=== PATIENT | male | born 1940 | race Caucasian/White ===

== ENCOUNTER 2020-07-19 18:48 | Inpatient (IN) | payer MEDICARE, SELFPAY ==
[2020-07-19] VITALS (9 sets, daily range): BP systolic 76–155; BP diastolic 51–97; PULSE 64–92; RESP 12–20; TEMP 36–37.2; O2SAT 94–100; BMI 27.0
--- NOTE | ~2020-07-19 | CT_ITS ---
EXAMINATION: CT abdomen pelvis wo con DATE: 07/23/2020 13:28 INDICATION: Abdominal pain TECHNIQUE: Computed tomography (CT) of the abdomen and pelvis was performed with 100 cc Omnipaque 350 intravenous contrast. Automated exposure control and iterative reconstruction technique were employe d. Exam dose: 255.59 mGy-cm total exam DLP. COMPARISON: 04/12/2013 CT abdomen pelvis FINDINGS: The virtually entire stomach is situated within a large hiatal hernia. There is minimal discoid atelectasis or scarring at the lung bases. Normal heart size. There is trace pericardial fluid. There are scattered hepatic cysts. The gallbladder is present. No bile duct or pancreatic duct dilata tion. No pancreatic mass lesion or calcification. Normal splenic size. Normal morphology of the adren al glands. There is bilateral renal excretion of contrast material and no evidence of renal mass lesi on or hydronephrosis. No ureteral calculus is evident. There is prominent enlargement of the prostate gland as well as some prostate calcifications. The uri nary bladder appears unremarkable. There is diverticulosis of left and right colon; no CT evidence of diverticulitis. Status post append ectomy. No bowel obstruction, bowel wall thickening, pneumatosis or intraperitoneal free air. There is atherosclerotic calcification but normal caliber of the abdominal aorta. No intraperitoneal or retroperitoneal or pelvic mass lesion or adenopathy or ascites. There is prominent degenerative change of the thoracic and lumbar spine, including severe degenerativ e disease of the lumbar and lumbosacral area, with associated mild retrolisthesis at L4-5 and L5-S1. There is degenerative change at the apophyseal joints as well. IMPRESSION: Large hiatal hernia containing virtually the entire stomach Hepatic cysts Diverticulosis of the colon; no CT evidence of diverticulitis Status post appendectomy Prostate enlargement and calcification Reviewed, dictated and finalized at Location [facility]. Reviewed, dictated and finalized at location B.
--- NOTE | ~2020-07-19 | NM_ITS ---
EXAMINATION: NM marlon stress w perfusion DATE: 07/20/2020 11:34 INDICATION: Abnormal electrocardiogram. TECHNIQUE: Rest images were obtained following intravenous administration of 9.9 mCi Tc99m tetrofosmi n (Myoview). The patient was infused intravenously with Lexiscan (regadenoson). Then, 29.4 mCi Tc99m tetrofosmin (Myoview) was administered intravenously, and stress images were obtained. Data was recon structed into short axis and horizontal and vertical long axis SPECT images. Gated SPECT images were also obtained. COMPARISON: Myocardial perfusion imaging 02/03/2018 FINDINGS: There is a large, moderate-severity, fixed perfusion defect involving left ventricular apex , apical segments, and mid inferoseptal segment, consistent with infarct. No reversible component to suggest ischemia. There is apical hypokinesis. Left ventricular ejection fraction measures 56%. IMPRESSION: 1. Large, moderate-severity infarct involving left ventricular apex, apical segments, and mid inferos eptal segment, new from 02/03/2018. 2. Apical hypokinesis with left ventricular ejection fraction measuring 56%. Reviewed, dictated and finalized at location A. IMPRESSION: 1. Large, moderate-severity infarct involving left ventricular apex, apical seg ments, and mid inferoseptal segment, new from 02/03/2018. 2. Apical hypokinesis with left ventricular ejection fraction measuring 56%.
--- NOTE | ~2020-07-19 | US_ITS ---
EXAMINATION: US carotid duplex BI EXAM DATE: 07/20/2020 15:23 INDICATION: Syncope. TECHNIQUE: Grayscale, color and pulsed Doppler images of the cervical carotid arteries were obtained . The degree of vessel stenosis is placed in one of the following categories: normal, <50% stenosis, 50-69% stenosis, >=70% stenosis but less than near-occlusion, near-occlusion, or occlusion. Note that percent stenosis relative to normal distal artery lumen diameter is indirectly measured from velocit y measurements as described by Wicho, et al. Radiology 2003; 229:340-346. There is no prior study fo r comparison. FINDINGS: RIGHT SIDE: Right common carotid artery peak systolic velocity (PSV in cm/s): 66 Right bulb/internal carotid artery peak systolic velocity (PSV in cm/s): 137 Right internal carotid artery end diastolic velocity (EDV in cm/s): 28 Right ICA/CCA peak systolic ratio: 2.1 Right external carotid artery peak systolic velocity (PSV in cm/s): 67 Right vertebral artery antegrade flow: yes There is mild carotid bulb plaque. Velocity and Doppler waveforms in the common and internal carotid arteries is normal. LEFT SIDE: Left common carotid artery peak systolic velocity (PSV in cm/s): 80 Left bulb/internal carotid artery peak systolic velocity (PSV in cm/s): 67 Left internal carotid artery end diastolic velocity (EDV in cm/s): 18 Left ICA/CCA peak systolic ratio: 0.8 Left external carotid artery peak systolic velocity (PSV in cm/s): 61 Left vertebral artery antegrade flow: yes There is mild carotid bulb plaque. Velocity and Doppler waveforms in the common and internal carotid arteries is normal. IMPRESSION: 1. Less than 50 percent stenosis in the right internal carotid artery. 2. Less than 50 percent stenosis in the left internal carotid artery. > Reviewed, dictated and finalized at location B.
--- NOTE | ~2020-07-19 | XR_ITS ---
EXAMINATION: XR chest 2V DATE: 07/19/2020 20:07 INDICATION: Transient alteration of awareness TECHNIQUE: AP and lateral views of the chest are obtained. COMPARISON: 03/11/2017 FINDINGS: The lungs are free of acute opacities. There is no pleural effusion or pneumothorax. Cardio megaly is noted. There is a large hiatal hernia. There are bridging osteophytes at multiple levels in the spine, consistent with diffuse idiopathic skeletal hyperostosis (DISH). IMPRESSION: 1. No acute cardiopulmonary abnormality. 2. Stable cardiomegaly. Reviewed, dictated and finalized at location A.
--- NOTE | ~2020-07-19 | CT_ITS ---
EXAMINATION: CT brain wo con INDICATION: Transient alteration of awareness COMPARISON: None TECHNIQUE: Standard unenhanced head CT. The dose-length product (DLP) was 681.00 mGy-cm. The mA was a djusted according to patient size. Iterative reconstruction technique was employed. FINDINGS: There is no acute intraparenchymal hemorrhage. No evidence of mass lesion. No evidence of a cute infarction. There is mild periventricular and subcortical hypodensity probably related to small vessel ischemic disease. There is mild prominence of the sulci and ventricles related to cerebral atr ophy. Intracranial calcified cerebral atherosclerosis is noted. There are no extra-axial collections. There is no mass effect or midline shift. Changes in the globes are likely from ocular lens surgery. There is near complete opacification of the ethmoidal air cells. Mild mucosal thickening is seen th roughout the remaining paranasal sinuses. IMPRESSION: 1. No acute intracranial abnormality. 2. Age related findings. 3. Sinus disease. Reviewed, dictated and finalized at location A.
--- NOTE | 2020-07-19 19:10 | ED.SYNCOPE ---
HPI - Syncope General Chief Complaint: Syncope Stated Complaint: weakness Time Seen by Provider: 07/19/20 19:10 Source: patient and EMS Mode of arrival: EMS Limitations: no limitations History of Present Illness HPI narrative: Patient is a 79-year-old male who presents for evaluation of syncopal event. Patient reports that he had been watching television, stood up, ambulated to the bathroom, began to feel sweaty, weak and dizzy, and then passed out while urinating. Patient denies hitting his head, states he fell over a cat litter box. Patient states he awakened, was not confused. No urinary incontinence. No tongue lacerations. Patient without history of syncope in the past. He denies any prodromal symptoms such as chest pain, palpitations or shortness of breath. He stated that initially he felt weak and dizzy but that has since resolved. No weakness or dizziness currently. No numbness. Per EMS, patient was diaphoretic, cool and clammy at the time of their arrival to the residence. Patient states he initially had felt weak or dizzy, but currently feels normal. He denies any recent illnesses. He denies fever, chills, headache, vision changes, neck pain, chest pain or shortness of breath. No leg swelling or pain. Pt Twister Doffer is Dr. Tong. Related Data Home Medications Medication Instructions Recorded Confirmed tamsulosin 0.4 mg capsule 0.4 mg PO DAILY 12/07/19 07/06/20 carbidopa 10 mg-levodopa 100 mg 1 tablet PO BID 12/09/19 07/06/20 disintegrating tablet apixaban [Eliquis] mg 07/19/20 fludrocortisone mg 07/19/20 propranolol 07/19/20 tamsulosin mg PO 07/19/20 Allergies Allergy/AdvReac Type Severity Reaction Status Date / Time doxylamine AdvReac Severe DIZZINESS, Verified 07/06/20 09:18 SYNCOPAL FEELING DEXTROMETHORPHAN HBR AdvReac Severe DIZZINESS, Uncoded 07/06/20 09:18 SYNCOPAL FEELING PSEUDOEPHEDRINE HCL AdvReac Severe DIZZINESS, Uncoded 07/06/20 09:18 SYNCOPAL FEELING Review of Systems Review of Systems: Narrative: CONSTITUTIONAL: Denies fever, chills, or sweats. EYES: Denies visual changes, redness, or discharge. ENT: Denies rhinorrhea, congestion, sore throat, or otalgia. CARDIOVASCULAR: Denies chest pain, palpitations, or edema. RESPIRATORY: Denies cough or dyspnea. GASTROINTESTINAL: Denies abdominal pain, nausea, vomiting, or diarrhea. GENITOURINARY: Denies dysuria or hematuria. SKIN: Denies rash or itching. MUSCULOSKELETAL: Denies back pain, joint pain, or myalgia. NEUROLOGIC: Denies current headache, numbness, or weakness. [facility] Past Medical History Medical History (Updated 07/19/20 @ 21:05 by Liam Stapleton MD) Asthma Chronotropic incompetence Dizziness on standing LEE (dyspnea on exertion) Idiopathic Parkinson's disease SHERLY (obstructive sleep apnea) PAF (paroxysmal atrial fibrillation) Trifascicular block Surgical History Surgical History History of appendectomy Family History Family History Father Silicosis Mother Heart disease Social History Social History Smoking status: Never smoker Exam Narrative: Exam Narrative: GENERAL: Awake, alert, conversant HEAD: Normocephalic, atraumatic. EYES: PERRLA and EOMI. ENT: Nares clear, no rhinorrhea or epistaxis. Mucous membranes moist. NECK: Supple. CHEST: No respiratory distress, breathing even and non labored HEART: Regular rate, sinus rhythm ABDOMEN:Non distended, non tender EXTREMITIES: Normal range of motion. No edema. SKIN: Pale, warm, dry, no rash. NEURO:No focal deficits. Alert and oriented x3 Course Vital Signs Vital signs: Vital Signs Temperature 37.2 C 07/19/20 18:56 Pulse Rate 79 07/19/20 18:56 Respiratory Rate 12 07/19/20 18:56 Blood Pressure 133/88 07/19/20 18:56 Pulse Oximetry 99 07/19/20 18:56
[2020-07-19 19:56] LABS: Basophils Percent Auto 0.4 % (0.2-1.2); Eosinophils Absolute Auto 0.1 K/mm3 (0-0.3); Eosinophils Percent Auto 1.2 % (0-4.4); Hematocrit 47.3 % (42.0-52.0); Hemoglobin 16.2 g/dL (14.0-18.0); Immature Granulocyte Absolute 0.02 K/mm3 (0.00-0.031); Immature Granulocyte Percent A 0.2 % (0-0.5); Lymphocytes Absolute Auto 1.43 K/mm3 (0.9-3.2); Lymphocytes Percent Auto 15.3 % (18.3-44.2); Mean Corpuscular HGB Conc 34.2 g/dl (32-36); Mean Corpuscular Hemoglobin 31.2 pg (26-34); Mean Corpuscular Volume 91.1 fl (80-100); Mean Platelet Volume 9.5 fl (7.4-10.4); Monocytes Absolute Auto 0.9 K/mm3 (0.1-0.6); Monocytes Percent Auto 9.1 % (2.6-8.5); Neutrophils Absolute Auto 6.9 K/mm3 (1.3-6.7); Neutrophils Percent Auto 73.8 % (45.5-73.1); Platelet Count Result 231 k/mm3 (150-375); Red Blood Count 5.19 M/mm3 (4.6-6.20); Red Cell Distribution Width 12.8 % (11.5-14.5); White Blood Count 9.4 K/mm3 (4.5-10.0)
[2020-07-19 20:06] LABS: INR 1.7; Prothrombin Time 19.6 Seconds (11.1-14.7)
[2020-07-19 20:07] LABS: Anion Gap 4 mmol/L (8-16); Blood Urea Nitrogen 16 mg/dL (9-20); Calcium 9.1 mg/dL (8.4-10.2); Carbon Dioxide 29 mmol/L (22-30); Chloride 104 mmol/L (98-107); Estimated CRCL calculation 74 ml/min; Estimated Glomerular Filt Rate > 60; Glucose 166 mg/dL (75-110); Partial Thromboplastin Time 47.7 SECONDS (22.3-36.8); Potassium 4.3 mmol/L (3.4-5.0); Sodium 137 mmol/L (137-145)
[2020-07-19 20:10] LABS: D Dimer 0.27 ug/mL (<0.48)
[2020-07-19 20:21] LABS: Troponin I 0.069 ng/mL (0.000-0.034)
[2020-07-19] MEDS: SODIUM CHLORIDE 0.9% IV 1,000 ML 999 ML IV CONT (20:22)
[2020-07-19 20:51] LABS: NT Pro B Type Natriuretic Pept 8540 PG/ML (5-100)
--- NOTE | 2020-07-19 20:57 | PM.IMHP ---
H&P: HPI History of Present Illness Date/Time: 07/19/20 20:57 Chief complaint: Passed out and fell Narrative: This is a pleasant 79-year-old male with known history of paroxysmal atrial fibrillation anticoagulated on Eliquis and Parkinson's syndrome who presented to the hospital tonight after passing out while urinating. The patient states that he often feels dizzy while urinating and most of the time has to put his hand on the wall to balance himself while he is urinating. Today while the patient was in the bathroom he began to feel dizzy, weak, and diaphoretic. the patient passed out while urinating and fell over on a box of eloina litter. he does not believe that he suffered any head trauma and states he was only out for a brief second. He denies any shortness of breath or chest pain prior to passing out. He denies any seizure-like activity. The last time he passed out was almost 50 years ago according to the patient. He denies starting or stopping any medications recently. He also denies any fevers, chills, chest pain, cough, wheezing, shortness of breath, dysuria, hematuria, diarrhea, nausea, vomiting, abdominal pain, rectal bleeding, black stools, or focal neurological deficits. The patient has no other complaints tonight. He was evaluated emergency room and routine labs demonstrated a mildly elevated troponin of 0.069. Cardiology has been consulted by ER provider we been asked to admit the patient to the hospital overnight. Review of Systems Review of Systems: All systems reviewed & are unremarkable except as noted in HPI and below PMFSH Past Medical History Medical History (Updated 07/19/20 @ 21:05 by Liam Stapleton MD) Asthma Chronotropic incompetence Dizziness on standing LEE (dyspnea on exertion) Idiopathic Parkinson's disease SHERLY (obstructive sleep apnea) PAF (paroxysmal atrial fibrillation) Trifascicular block Surgical History Surgical History History of appendectomy Family History Family History Father Silicosis Mother Heart disease Social History Social History Smoking status: Never smoker Second hand tobacco smoke exposure: No Alcohol intake: current Drinks per week: 2 Substance use: never Substance use type: does not use Gender identity (if verbalized by the patient): Male Spiritual care concerns: No Meds Home Medications and Allergies Home Medications Medication Instructions Recorded Confirmed Type amiodarone 100 mg tablet 100 mg PO DAILY #30 tablet 07/12/20 07/20/20 Rx apixaban [Eliquis] 5 mg PO BID 07/19/20 07/20/20 History fludrocortisone 0.1 mg PO DAILY 07/19/20 07/20/20 History propranolol 40 mg PO BID 07/19/20 07/20/20 History tamsulosin 0.4 mg PO DAILY 07/19/20 07/20/20 History carbidopa-levodopa 1 tablet PO BID 07/20/20 07/20/20 History Allergies Allergy/AdvReac Type Severity Reaction Status Date / Time doxylamine AdvReac Severe DIZZINESS, Verified 07/06/20 09:18 SYNCOPAL FEELING DEXTROMETHORPHAN HBR AdvReac Severe DIZZINESS, Uncoded 07/06/20 09:18 SYNCOPAL FEELING PSEUDOEPHEDRINE HCL AdvReac Severe DIZZINESS, Uncoded 07/06/20 09:18 SYNCOPAL FEELING Vital Signs Vital Signs - 24 hr 07/19/20 18:56 07/19/20 20:56 Temperature 37.2 C Pulse Rate 79 69 Respiratory Rate 12 20 Blood Pressure 133/88 145/89 H Pulse Oximetry 99 94 Exam Const: General: cooperative, healthy appearing, no acute distress, alert and awake Nutritional Appearance: well nourished Orientation/consciousness: patient oriented x3 HENMT: Head: normal to inspection General nose exam: Normal external nose present Face and sinus: normal facial exam Mouth: Yes Normal oral and palatal mucosa present and Yes oropharynx normal Eyes: Pupils: Equal, round and
--- NOTE | 2020-07-19 23:23 | PC.NURSE ---
This patient, Higinio Agosto, was admitted to IMU Room 213-01. Patient/family oriented to hospital policies and general routines including ID bracelet, bed and alarms, visiting hours, pain management, procedures, bathroom and other care routines, personal items, smoking policy, room service/diet, and visiting hours. Valuables list has been completed. Information on how to activate the Rapid Response Team has been discussed. Patient/Family are encouraged to report perceived risks to care and to ask questions if they do not understand what they are told or what they should do.
[2020-07-19 23:44] LABS: Troponin I 0.067 ng/mL (0.000-0.034)
[2020-07-19 23:48] LABS: Add Urine Microscopic? YES; Appearance Urine Clear (Clear); Bilirubin Urine Negative (Negative); Blood Urine Negative (Negative); Color Urine Yellow (Yellow); Glucose Urine UA 1+ mg/dL (Negative); Ketones Urine Negative (Negative); Leukocyte Esterase Ur Negative LEU/UL (Negative); Nitrate Urine Negative (Negative); Protein Urine 1+ mg/dL (Negative); RBC Urine 0-2 /hpf (0-2); Specific Grav Ur 1.017 (1.001-1.035); Urobilinogen Urine Negative mg/dL (<2.0); WBC Urine 0-3 /hpf
[2020-07-19 23:49] LABS: Mucus Urine Rare /lpf
[2020-07-20] VITALS (17 sets, daily range): BP systolic 102–146; BP diastolic 64–85; PULSE 58–86; RESP 18–21; TEMP 36.1–36.6; O2SAT 97–99
--- NOTE | 2020-07-20 | EST_ITS ---
Patient Info Name: Higinio Agosto Age: 79 years : 1940 Gender: Male Ht: 72 in Wt: 199 lbs BSA: 2.15 m2 Exam Date: 07/20/2020 10:30 AM Exam Location: [facility] Stress Patient Status: Inpatient Admit Date: 07/19/2020 Staff Ordering Physician: Medardo Tong DO Attending Provider: Liam Stapleton MD Exercise Technologist: Saw Horton RDCS, RT Exercise Physician: Medardo Tong DO Exam Type: CA stress marlon w NM Study Info A regadenoson stress test was performed. Summary 1. 1. Negative lexiscan stress test for ischemic ST changes by ECG criteria. However, significant baseline T wave inversions reduces specificity of the test. 2. 2. Stable hemodynamics throughout the test. 3. 3. Nuclear scan to follow and will be reported separately. Please correlate with it. 4. 4. Patient informed of the above results. Protocol: Lexiscan Stress ECG Details Stage: REST Duration (min): 0 min : 43 sec HR (bpm): 67 SBP (mmHg): 139 DBP (mmHg): 88 Stage: REST Duration (min): 7 min : 11 sec HR (bpm): 65 SBP (mmHg): 139 DBP (mmHg): 88 Stage: STAGE 1 Duration (min): 0 min : 59 sec HR (bpm): 79 SBP (mmHg): 121 DBP (mmHg): 83 Stage: RECOVERY Duration (min): 1 min : 0 sec HR (bpm): 96 SBP (mmHg): 121 DBP (mmHg): 83 Stage: RECOVERY Duration (min): 2 min : 0 sec HR (bpm): 91 SBP (mmHg): 121 DBP (mmHg): 83 Stage: RECOVERY Duration (min): 3 min : 0 sec HR (bpm): 88 SBP (mmHg): 108 DBP (mmHg): 78 Stage: RECOVERY Duration (min): 4 min : 0 sec HR (bpm): 84 SBP (mmHg): 108 DBP (mmHg): 78 Stage: RECOVERY Duration (min): 4 min : 39 sec HR (bpm): 83 SBP (mmHg): 108 DBP (mmHg): 78 Rest HR: 65 bpm Peak HR: 96 bpm Rest Sys BP: 139 mmHg Peak Sys BP: 121 mmHg Max Pred HR: 143 bpm % Max Pred HR: 67 % Target HR: 122 bpm Max RPP: 11,616 bpm*mmHg Termination Reason: Completed protocol Cardiac Symptoms: Shortness of breath Total Time: 1 min : 0 sec Rest Walker BP: 88 mmHg Peak Walker BP: 83 mmHg Total Dose: 0.4 mg Resting ECG Sinus rhythm, first degree AV block, RBBB, LAFB, T wave inversions in anterolat/inf leads- consider ischemia, prolonged QT interval. Stress ECG No ST changes. Arrhythmias None. Report Signatures
[2020-07-20 03:16] LABS: Basophils Percent Auto 0.5 % (0.2-1.2); Eosinophils Absolute Auto 0.2 K/mm3 (0-0.3); Eosinophils Percent Auto 2.2 % (0-4.4); Hematocrit 43.6 % (42.0-52.0); Hemoglobin 14.8 g/dL (14.0-18.0); Immature Granulocyte Absolute 0.01 K/mm3 (0.00-0.031); Immature Granulocyte Percent A 0.1 % (0-0.5); Lymphocytes Absolute Auto 1.97 K/mm3 (0.9-3.2); Lymphocytes Percent Auto 23.7 % (18.3-44.2); Mean Corpuscular HGB Conc 33.9 g/dl (32-36); Mean Corpuscular Volume 91.4 fl (80-100); Mean Platelet Volume 9.8 fl (7.4-10.4); Monocytes Percent Auto 11.7 % (2.6-8.5); Neutrophils Absolute Auto 5.1 K/mm3 (1.3-6.7); Neutrophils Percent Auto 61.8 % (45.5-73.1); Platelet Count Result 220 k/mm3 (150-375); Red Blood Count 4.77 M/mm3 (4.6-6.20); Red Cell Distribution Width 12.8 % (11.5-14.5); White Blood Count 8.3 K/mm3 (4.5-10.0)
[2020-07-20 03:30] LABS: Anion Gap 1 mmol/L (8-16); Blood Urea Nitrogen 15 mg/dL (9-20); Calcium 8.6 mg/dL (8.4-10.2); Carbon Dioxide 29 mmol/L (22-30); Chloride 106 mmol/L (98-107); Estimated CRCL calculation 66 ml/min; Estimated Glomerular Filt Rate > 60; Glucose 122 mg/dL (75-110); Magnesium 2.1 mg/dL (1.6-2.3); Potassium 3.7 mmol/L (3.4-5.0); Sodium 136 mmol/L (137-145)
[2020-07-20 03:50] LABS: Troponin I 0.055 ng/mL (0.000-0.034)
--- NOTE | 2020-07-20 08:00 | PM.CNCAR ---
Assessment and Plan Assessment and plan (1) Elevated troponin I level: Code(s): R79.89 - Other specified abnormal findings of blood chemistry Status: Acute Assessment and Plan: Doubt ACS without clinical evidence of it. It is trending down. Obtain echo and lexiscan myoview stress test. (2) Syncope and collapse: Code(s): R55 - Syncope and collapse Status: Acute Assessment and Plan: Probably due to orthostatic syncope with very apparent drop in BP on orthostatics (contribution from Parkinson's disease causing autonomic dysfunction?) or due to micturition syncope. Encourage fluid intake and to wear compression stockings. May need Midodrine prn. (3) LEE (dyspnea on exertion): Code(s): R06.09 - Other forms of dyspnea Status: Acute (4) Trifascicular block: Code(s): I45.3 - Trifascicular block Status: Chronic (5) Chronotropic incompetence: Code(s): I45.89 - Other specified conduction disorders Status: Acute (6) PAF (paroxysmal atrial fibrillation): Code(s): I48.0 - Paroxysmal atrial fibrillation Status: Chronic Assessment and Plan: In Sinus rhythm on Amiodarone. On low dose to prevent bradycardia. On Eliquis. History of Present Illness History of Present Illness Consult date/time: 07/20/20 08:00 Reason for consult: Syncope. Patient is a 79 yr old man who is my regular cardiology patient who presents to ED after passing out. He has a history of chronotropic incompetence, trifascicular block, PAF, and Parkinson's disease. States he got up to use restroom last evening and while doing so felt dizzy and pass out. He did not injure himself falling and was out for a second. No longer having any dizziness now. Denies chest pain or sob or palpitations. EKG shows same sinus rhythm with trifascicular block. Troponins checked showed it was .069 then trended down to .055. NTpro BNP is 8,540. CXR shows stable cardiomegaly. CT brain shows sinus disease. Orthostatic vitals taken shows BP went from supine 155 /97 to sitting 147/85 to standing 76/51 mmHg. Reports LEE has gotten worse to walking down drive way and back and previously it was 3 blocks. Denies syncope. Mild edema of legs. Had dizziness one time after getting up in the morning. Denies chest pain, sob, palpitations. Cardiovascular Procedures Echo/MUGA:: Echo (EF 60-65%, sigmoid septum, grade I diastolic dysfunction E/E' 18, mild LAE, mild , trace AI/TR, Aortic root 4.1 cm, ascending aorta 4.0 cm.) - 10/09/2017 Electrophysiology:: 05/28/20 22 days event monitor: Sinus rhythm, HR range 31-141 bpm; average HR 64 bpm; 1% PAC's and 9% PVC's. 05/28/20 EKG: Sinus bradycardia with first degree AV block at 45 bpm, RBBB, LAFB. EKG (Sinus rhythm at 59 bpm with first degree AV block, RBBB, LAFB, QTc 484 ms.) - 08/05/2019 EKG (Sinus rhythm at 61 bpm, first degree AV block, RBBB, LAFB, QTc 492 ms.) - 02/04/2019 EKG (Sinus rhythm at 61 bpm, first degree AV block, RBBB, LAFB, QTc 488 ms.) - 10/01/2018 Holter (Sinus rhythm, HR range 31-98 bpm; average 67 bpm; 7 PAC's, 9 couplets, 1 triplet; 2,334 PVC's, 3 couplets, 1,676 bigeminy and 285 trigeminy.) - 07/08/2018 EKG (Sinus rhythm with first degree AV block with PVC's, RBBB, LAFB.) - 07/02/2018 EKG (Sinus rhythm with first degree AB block, RBBB, LAFB, QTc 483 ms.) - 04/02/2018 EKG (Sinus rhythm, first degree AV block, RBBB, LAFB, QTc 468 ms.) - 02/26/2018 Holter (48 hour holter: Sinus rhythm HR range 53-160 bpm; average HR 81 bpm; 9,817 PAC's, 927 couplets; 135 runs of SVT and atrial fib; fastest at 222 bpm and longest at least 15 minutes; 13,017 PVC's, 1,562 couplets, 72 triplets, 1,797 bigeminy and 1,445 trigeminy; 3 runs of VT at 136, longest 4 beats.) - 02/12/2018 EKG (Sinus rhythm with first degree AV block, RBBB, LAFB, PAC's.) - 01/15/2018 EKG (Undetermined rhythm, RBBB, LAFB.) - 04/12/2013 Stress Tests:: Exercise Tolerance Test (Check for chronotropic incompetence: He walked for 3
--- NOTE | 2020-07-20 10:21 | ECG_ITS ---
Measurements Intervals Plover Rate: 66 P: 10 AL: 249 QRS: -84 QRSD: 164 T: 248 QT: 484 QTc: 511 Interpretive Statements SINUS RHYTHM WITH FIRST DEGREE AV BLOCK RIGHT BUNDLE BRANCH BLOCK LEFT ANTERIOR FASCICULAR BLOCK T WAVE ABNORMALITY IN ANTEROLAT/INF LEADS- CONSIDER ISCHEMIA BASELINE ARTIFACT- II, III, AVF ABNORMAL ECG Electronically Signed On 07-20-2020 20:11:32 CDT by Medardo Tong D.O.
--- NOTE | 2020-07-20 13:16 | PM.CNCAR ---
Assessment and Plan Additional Plan 79-year-old man with an L elevated troponin level drawn in the absence of any symptoms or clinical evidence of acute coronary syndrome. This triggered a nuclear stress test which demonstrates the possibility of a previous anteroapical infarction. He has never been clinically known to have an [place] in the past. Angiogram in this setting is reasonable but certainly not urgent. Since the patient has been off of apixaban for less than 48 hours it would not be prudent to proceed with non urgent angiography today. I told the patient and his family that if he remains in the hospital I will be happy to do this procedure on Thursday morning. Another reasonable alternative would be to do this as an outpatient. We will follow him with you over the weekend if he remains in the hospital and perform angiography on Thursday if the chooses to go home we will set this up as an outpatient thank you for asking me to see this gentleman Elkin Bryant MD [facility] History of Present Illness History of Present Illness Consult date/time: Date of service: 07/20/20 13:16 Reason For Visit: Passed out and fell Narrative: This is a 79-year-old man who I am seeing at the request of Dr. Tong to consider performing a coronary angiogram. The patient was seen and his chart was reviewed. He is not known to have coronary artery disease as best as I can tell in from his knowledge. The patient was admitted to the hospital after an episode of what appears to be typical micturition syncope. 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 He also has chronic bifascicular block and history of atrial fibrillation although he is currently in sinus rhythm. He is being treated for this with amiodarone and apixaban. The patient came to the emergency room after this syncopal event and for reasons that are not detailed in the chart troponin levels were done a or slightly out of normal range. At this apparently triggered a nuclear stress test to be done this morning. He had a Lexiscan nuclear study performed which is being interpreted as showing a fixed defect in the anteroapical wall compatible with a prior infarction. There is no reversible ischemia. With these findings I am asked to see him to poor perform an angiogram. According to the chart the patient did receive apixaban yesterday. He feels well currently and denies any complaints. Review of Systems Constitutional: Constitutional: Reports no additional constitutional complaints Eyes: Eyes: Reports no additional eye complaints ENT: Reports system reviewed and no additional complaints, except as documented Cardiovascular: Cardiovascular: Reports as per HPI Respiratory: Respiratory: Reports no additional respiratory complaints Gastrointestinal: Gastrointestinal: Reports no additional gastrointestinal complaints Musculoskeletal: Musculoskeletal: Reports no additional musculoskeletal complaints Integumentary/Breasts: Skin/Breast: Reports system reviewed and no additional complaints, except as docu Neurologic: Reports system reviewed and no additional complaints, except as documented Endocrine: Endocrine: Reports no additional endocrine complaints Hematologic/Lymphatic: Hematologic/Lymphatic: Reports no additional hematologic/lymphatic complaints Allergic/Immunologic: Allergic/Immunologic: Reports no additional allergic/immunologic complaints [facility] Past Medical History Medical History (Updated 07/19/20 @ 21:05 by Liam Stapleton MD) Asthma Chronotropic incompetence Dizziness on standing LEE (dyspnea on exertion) Idiopathic Parkinson's disease SHERLY (obstructive sleep apnea) PAF (paroxysmal atrial fibrillation) Trifascicular block Surgical History Surgical History History of appendectomy Family History Family History (Reviewed 0
[2020-07-20] MEDS: PERFLUTREN LIPID MICROSPHERES 1.5 ML VIAL DILUTED TO 10 ML TOTAL VOLUME IV PUSH (14:20)
[2020-07-20] MEDS: AMIODARONE HCL 100 MG TABLET PO (14:53)
[2020-07-20] MEDS: ASPIRIN 81 MG CHEWABLE TABLET PO (14:53)
--- NOTE | 2020-07-20 16:26 | PM.IMPN ---
Progress Note: A&P Assessment and Plan (1) Syncope and collapse: Code(s): R55 - Syncope and collapse Status: Acute Assessment and Plan: likely vasovagal in origin. Rule out cardiogenic syncope. Telemetry. Fall precautions. Check TSH reflex T4. Check echocardiogram. Check carotid Doppler ultrasound. check orthostatic vitals which have not been done yet. 07/20/20 16:26 patient is 79-year-old male with history of Parkinson disease taking Sinemet and Florinef 0.1mg daily was brought to the emergency department after he fell while urinating, patient states that he was watching TV, got up to go to the bathroom and while urinating he fell, he denies any associated symptoms chest pain palpitation or dizziness, after the fall he denies any head injury but did feel weak and tired, patient was brought to the emergency depart further evaluation he was orthostatic in emergency, most likely patient symptoms stems from orthostatic hypotension due to autonomic dysfunction secondary to Parkinson disease or he had a vasovagal during urinating, EKG did not show any significant with acute injury, his tropes were elevated mild and flat, further evaluate patient had Lexiscan stress which showed the patient may have myocardial infarction however patient was seen by sifter operator does not suspect acute coronary disease recommending to monitor, since patient is on Eliquis which is on hold, suspect most likely patient has 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 and he is already on Florinef, will monitor his orthostatic, may start the patient on low dose of midodrine to further evaluate his orthostatic hypotension, will discuss with his sifter operator before starting midodrine, will have PT OT evaluate the patient, patient will benefit from acute rehab before returning home, patient seen by Cardiology and further recommendation to follow. (2) Elevated troponin I level: Code(s): R79.89 - Other specified abnormal findings of blood chemistry Status: Acute Assessment and Plan: rule out ACS. likely secondary to acute trauma. Trend troponin. telemetry. cardiology has been consulted by ER provider. 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 (5) PAF (paroxysmal atrial fibrillation): Code(s): I48.0 - Paroxysmal atrial fibrillation Status: Chronic Assessment and Plan: Continue amiodarone and Eliquis. Subjective Date/time seen: 07/20/20 16:26 patient is 79-year-old male with history of Parkinson disease taking Sinemet and Florinef 0.1mg daily was brought to the emergency department after he fell while urinating, patient states that he was watching TV, got up to go to the bathroom and while urinating he fell, he denies any associated symptoms chest pain palpitation or dizziness, after the fall he denies any head injury but did feel weak and tired, patient was brought to the emergency depart further evaluation he was orthostatic in emergency, most likely patient symptoms stems from orthostatic hypotension due to autonomic dysfunction secondary to Parkinson disease or he had a vasovagal during urinating, EKG did not show any significant with acute injury, his tropes were elevated mild and flat, further evaluate patient had Lexiscan stress which showed the patient may have myocardial infarction however patient was seen by sifter operator does not suspect acute coronary disease recommending to monitor, since patient is on Eliquis which is on hold, suspect most likely patient has 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 and he is already on Florinef, will monitor his orthostatic, may start the patient on low dose of midodrine to further evaluate his ort
[2020-07-20] MEDS: CARBIDOPA/LEVODOPA 25/250 MG TABLET 1 TABLET PO (20:42)
[2020-07-20] MEDS: PROPRANOLOL HCL 40 MG TABLET PO (20:43)
--- NOTE | 2020-07-20 20:56 | ECHO_ITS ---
Patient Info Name: Higinio Agosto Age: 79 years : 1940 Gender: Male Ht: 72 in Wt: 205 lbs BSA: 2.19 m2 HR: 65 bpm BP: 127 / 85 mmHg Heart Rhythm: Sinus Rhythm Technical Quality: Good Exam Date: 07/20/2020 1:36 PM Exam Location: [facility] Patient Status: Inpatient Admit Date: 07/19/2020 Staff Ordering Physician: Liam Stapleton MD V[place]ette: Leonides Herbert RDCS Attending Provider: Liam Stapleton MD Referring Physician: Pieter CORBETT; Exam Type: CA echo dop color flow w con Study Info Indications R55 - Syncope and collapse Complete two-dimensional, color flow and Doppler transthoracic echocardiogram is performed with contrast to opacify the left ventricle and to improve the deliniation of the left ventricle endocardial borders. Contrast/Agitated Saline Contrast/Ag. Saline: Definity Amount: 3.00 ml Administered By: Amador Eugene RN Existing IV Access: Yes History/Risk Factors Chest pain; syncope, orthostatic HoTN, LEE, pAfib, CHF w/ BNP 8450, cardiomegaly. Summary 1. Left ventricular chamber dimension is normal. 2. Definity contrast administered improved wall motion interpretation. 3. Left ventricular systolic function is normal, estimated at 55-60%. 4. There is moderately increased left ventricular wall thickness. 5. The left ventricular diastolic function is grade I diastolic dysfunction. 6. E/e' 13 is mildly elevated. 7. There is mild aortic valve sclerosis. 8. There is mild to moderate aortic valve regurgitation. 9. The mitral valve has mildly calcified annulus. Left Ventricle E/e' 13 is mildly elevated. Definity contrast administered improved wall motion interpretation. Left ventricular chamber dimension is normal. Left ventricular systolic function is normal, estimated at 55-60%. There is moderately increased left ventricular wall thickness. The left ventricular diastolic function is grade I diastolic dysfunction. Right Ventricle Right ventricular chamber dimension is normal. Right ventricular systolic function is normal. Left Atria Left atrial chamber dimension is normal. Right Atria Right atrial chamber dimension is normal. Aortic Valve The aortic valve is trileaflet. There is mild aortic valve sclerosis. There is no aortic valve stenosis. There is mild to moderate aortic valve regurgitation. Pulmonic Valve There is no pulmonic regurgitation. Mitral Valve The mitral valve has mildly calcified annulus. There is no mitral valve stenosis. There is no mitral valve regurgitation. Tricuspid Valve There is no tricuspid valve regurgitation. Pericardium/Pleural There is no pericardial effusion. Inferior Vena Cava Normal inferior vena cava with >50% collapse upon inspiration consistent with normal right atrial pressure, 5 mmHg. Aorta The aortic root size at the sinus of Valsalva is normal. Left Ventricular Outflow Tract Name Value Normal LVOT 2D LVOT Diameter 2.25 cm LVOT Doppler LVOT Peak Gradient 4 mmHg LVOT Mean Gradient 2 mmH
[2020-07-21] VITALS (20 sets, daily range): BP systolic 71–196; BP diastolic 49–124; PULSE 57–89; RESP 18–20; TEMP 36–36.4; O2SAT 96–99
[2020-07-21 04:18] LABS: Mean Corpuscular Hemoglobin 31.2 pg (26-34); Mean Corpuscular Volume 91.6 fl (80-100); Mean Platelet Volume 9.5 fl (7.4-10.4); Platelet Count Result 245 k/mm3 (150-375); Red Blood Count 5.13 M/mm3 (4.6-6.20); Red Cell Distribution Width 12.8 % (11.5-14.5); White Blood Count 10.3 K/mm3 (4.5-10.0)
[2020-07-21 04:38] LABS: Anion Gap 8 mmol/L (8-16); Blood Urea Nitrogen 13 mg/dL (9-20); Carbon Dioxide 31 mmol/L (22-30); Chloride 101 mmol/L (98-107); Estimated CRCL calculation 66 ml/min; Estimated Glomerular Filt Rate > 60; Glucose 121 mg/dL (75-110); Potassium 3.8 mmol/L (3.4-5.0); Sodium 140 mmol/L (137-145)
--- NOTE | 2020-07-21 07:26 | ECG_ITS ---
Measurements Intervals [place] Rate: 60 P: 72 HI: 271 QRS: -79 QRSD: 165 T: 257 QT: 515 QTc: 515 Interpretive Statements SINUS RHYTHM WITH FIRST DEGREE AV BLOCK RIGHT BUNDLE BRANCH BLOCK LEFT ANTERIOR FASCICULAR BLOCK T WAVE ABNORMALITY IN ANTEROLAT/INF LEADS- CONSIDER ISCHEMIA PROLONGED QT INTERVAL ABNORMAL ECG Electronically Signed On 07-21-2020 8:34:54 CDT by Medardo Tong D.O.
--- NOTE | 2020-07-21 08:17 | PM.PNCARD ---
Progress Note: A&P Assessment and Plan (1) Elevated troponin I level: Code(s): R79.89 - Other specified abnormal findings of blood chemistry Status: Acute Assessment and Plan: Doubt ACS without clinical evidence of it. It is trending down. Echo shows normal EF, mild-mod MR. Cielo [place] is abnormal with large apical defect suggestive of prior UT or scar. Appreciate Dr. Bryant with [facility] seeing patient on consult for cardiac cath and plan for Thursday since he was on Eliquis. (2) Syncope and collapse: Code(s): R55 - Syncope and collapse Status: Acute Assessment and Plan: Probably due to orthostatic syncope with very apparent drop in BP on orthostatics (contribution from Parkinson's disease causing autonomic dysfunction?) or due to micturition syncope. On Florinef. Encourage fluid intake and to wear compression stockings. May need Midodrine prn. 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 On low dose Amiodarone due to bradycardia. 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 Start DVT prophylaxis with Lovenox 40 mg SQ daily. (7) SHERLY (obstructive sleep apnea): Code(s): G47.33 - Obstructive sleep apnea (adult) (pediatric) Status: Acute (8) Dizziness on standing: Code(s): R42 - Dizziness and giddiness Status: Acute Subjective Date/time seen: 07/21/20 08:17 He did not sleep well, just could not get comfortable last night. No chest pain or sob. Reports intermittent dizziness sitting on side of bed on or in chair, and mostly with standing. Discussed cardiac cath with patient and he wants to stay here until Thursday for procedure. Exam Const: General: no acute distress; No in distress Neck: Neck: no JVD Carotids: no bruits Resp: Auscultation: clear to auscultation bilaterally, no crackles, no rales, no rhonchi and no wheezes Cardio: Rate: regular rate Rhythm: regular rhythm Heart sounds: no murmurs GI: GI Palp: Yes Soft to palpation and No Tenderness to palpation present (GI) Neuro: Speech: normal speech Extrem: Right lower extremity: no edema Left lower extremity: no edema Objective Data Vital Signs Vital Signs: Vital Signs - 24 hr 07/20/20 08:31 07/20/20 12:20 07/20/20 14:00 Temperature 97.0 F L 97.1 F L Pulse Rate 64 68 66 Respiratory Rate 18 20 Blood Pressure 127/85 110/72 Pulse Oximetry 97 97 07/20/20 14:53 07/20/20 16:00 07/20/20 16:32 Temperature 97.6 F Pulse Rate 67 76 72 Respiratory Rate 21 H Blood Pressure 124/74 Pulse Oximetry 97 07/20/20 18:00 07/20/20 19:08 07/20/20 19:58 Temperature 97.9 F 97.1 F L Pulse Rate 67 69 61 Respiratory Rate 20 20 Blood Pressure 125/66 118/64 Pulse Oximetry 98 99 07/20/20 19:59 07/20/20 20:00 07/20/20 20:43 Temperature Pulse Rate 86 69 Respiratory Rate Blood Pressure 102/72 Pulse Oximetry 07/20/20 22:00 07/21/20 00:00 07/21/20 02:00 Temperature 97.2 F L Pulse Rate 58 L 71 75 Respiratory Rate 20 Blood Pressure 158/76 H Pulse Oximetry 99 07/21/20 04:00 07/21/20 06:00 Temperature 97.5 F L Pulse Rate 63 77 Respiratory Rate 18 Blood Pressure 167/79 H Pulse Oximetry 97 Intake/Output Intake/Output: Intake & Output 07/18/20 07/19/20 07/20/20 07/21/20 23:59 23:59 23:59 23:59 Intake Total 1000 1090 500 Output Total 1000 1250 Balance 1000 90 -750 Meds
[2020-07-21] MEDS: FLUDROCORTISONE ACETATE 0.1 MG TABLET PO (08:43)
[2020-07-21] MEDS: CARBIDOPA/LEVODOPA 25/250 MG TABLET 1 TABLET PO ×2 (08:43→20:36)
[2020-07-21] MEDS: TAMSULOSIN HCL 0.4 MG CAPSULE PO (08:43)
[2020-07-21] MEDS: PROPRANOLOL HCL 40 MG TABLET PO ×2 (08:43→20:36)
[2020-07-21] MEDS: ASPIRIN 81 MG CHEWABLE TABLET PO (08:44)
[2020-07-21 10:05] LABS: Cholesterol 202 mg/dL (0-200); HDL Direct 58 mg/dL; Triglycerides 98 mg/dL (<150)
[2020-07-21 10:15] LABS: LDL Cholesterol Direct 102 mg/dL
[2020-07-21] MEDS: AMIODARONE HCL 50 MG TABLET PO (10:30)
[2020-07-21] MEDS: ENOXAPARIN 40 MG/0.4 ML SYRINGE SUB-Q (10:31)
--- NOTE | 2020-07-21 12:34 | PM.IMPN ---
Progress Note: A&P Assessment and Plan (1) Syncope and collapse: Code(s): R55 - Syncope and collapse Status: Acute Assessment and Plan: likely vasovagal in origin. Rule out cardiogenic syncope. Telemetry. Fall precautions. Check TSH reflex T4. Check echocardiogram. Check carotid Doppler ultrasound. check orthostatic vitals which have not been done yet. 07/21/20 12:34 likely vasovagal in origin. Rule out cardiogenic syncope. Telemetry. Fall precautions. Check TSH reflex T4. Check echocardiogram. Check carotid Doppler ultrasound. check orthostatic vitals which have not been done yet. patient is 79-year-old male with history of Parkinson disease taking Sinemet and Florinef 0.1mg daily was brought to the emergency department after he fell while urinating, patient states that he was watching TV, got up to go to the bathroom and while urinating he fell, he denies any associated symptoms chest pain palpitation or dizziness, after the fall he denies any head injury but did feel weak and tired, patient was brought to the emergency depart further evaluation he was orthostatic in emergency, most likely patient symptoms stems from orthostatic hypotension due to autonomic dysfunction secondary to Parkinson disease or he had a vasovagal during urinating, EKG did not show any significant with acute injury, his tropes were elevated mild and flat, further evaluate patient had Lexiscan stress which showed the patient may have myocardial infarction however patient was seen by in flight refueling system repairer does not suspect acute coronary disease recommending to monitor, since patient is on Eliquis which is on hold, suspect most likely patient has 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 and he is already on Florinef, will monitor his orthostatic, may start the patient on low dose of midodrine to further evaluate his orthostatic hypotension, 07/21 today patient states still feel dizzy when he tries to get up or walk. denies any associated symptoms of chest pain or palpitation, patient is taken off Eliquis and scheduled to have cardiac catheterization on Thursday to further reassess his Lexiscan test, patient seen by his Cardiology will continue present management and monitor the patient. (2) Elevated troponin I level: Code(s): R79.89 - Other specified abnormal findings of blood chemistry Status: Acute Assessment and Plan: rule out ACS. likely secondary to acute trauma. Trend troponin. telemetry. cardiology has been consulted by ER provider. 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 (5) PAF (paroxysmal atrial fibrillation): Code(s): I48.0 - Paroxysmal atrial fibrillation Status: Chronic Assessment and Plan: Continue amiodarone and Eliquis. Subjective Date/time seen: 07/21/20 12:34 likely vasovagal in origin. Rule out cardiogenic syncope. Telemetry. Fall precautions. Check TSH reflex T4. Check echocardiogram. Check carotid Doppler ultrasound. check orthostatic vitals which have not been done yet. patient is 79-year-old male with history of Parkinson disease taking Sinemet and Florinef 0.1mg daily was brought to the emergency department after he fell while urinating, patient states that he was watching TV, got up to go to the bathroom and while urinating he fell, he denies any associated symptoms chest pain palpitation or dizziness, after the fall he denies any head injury but did feel weak and tired, patient was brought to the emergency depart further evaluation he was orthostatic in emergency, most likely patient symptoms stems from orthostatic hypotension due to autonomic dysfunction secondary to Parkinson disease or he had a vasovaga
[2020-07-22] VITALS (21 sets, daily range): BP systolic 63–180; BP diastolic 48–111; PULSE 51–84; RESP 16–24; TEMP 35.8–37.1; O2SAT 93–99
[2020-07-22 05:14] LABS: Hematocrit 46.3 % (42.0-52.0); Hemoglobin 15.9 g/dL (14.0-18.0); Mean Corpuscular HGB Conc 34.3 g/dl (32-36); Mean Corpuscular Hemoglobin 31.2 pg (26-34); Mean Corpuscular Volume 90.8 fl (80-100); Mean Platelet Volume 9.8 fl (7.4-10.4); Platelet Count Result 239 k/mm3 (150-375); Red Cell Distribution Width 12.9 % (11.5-14.5); White Blood Count 10.1 K/mm3 (4.5-10.0)
[2020-07-22 05:36] LABS: Anion Gap 0 mmol/L (8-16); Blood Urea Nitrogen 19 mg/dL (9-20); Calcium 9.1 mg/dL (8.4-10.2); Carbon Dioxide 34 mmol/L (22-30); Chloride 100 mmol/L (98-107); Estimated CRCL calculation 60 ml/min; Estimated Glomerular Filt Rate > 60; Glucose 122 mg/dL (75-110); Potassium 3.7 mmol/L (3.4-5.0); Sodium 134 mmol/L (137-145)
--- NOTE | 2020-07-22 07:40 | ECG_ITS ---
Measurements Intervals [place] Rate: 56 P: 24 AK: 275 QRS: -82 QRSD: 166 T: 261 QT: 555 QTc: 537 Interpretive Statements SINUS BRADYCARDIA WITH FIRST DEGREE AV BLOCK RIGHT BUNDLE BRANCH BLOCK LEFT ANTERIOR FASCICULAR BLOCK T WAVE ABNORMALITY IN ANTEROLAT/INF LEADS- CONSIDER ISCHEMIA PROLONGED QT INTERVAL ABNORMAL ECG Electronically Signed On 07-22-2020 8:53:45 CDT by Medardo Tong D.O.
[2020-07-22] MEDS: PROPRANOLOL HCL 40 MG TABLET PO ×2 (08:53→21:10)
[2020-07-22] MEDS: TAMSULOSIN HCL 0.4 MG CAPSULE PO (08:53)
[2020-07-22] MEDS: ASPIRIN 81 MG ENTERIC TABLET PO (08:54)
[2020-07-22] MEDS: FLUDROCORTISONE ACETATE 0.1 MG TABLET PO (08:54)
[2020-07-22] MEDS: ENOXAPARIN 40 MG/0.4 ML SYRINGE SUB-Q (08:54)
[2020-07-22] MEDS: CARBIDOPA/LEVODOPA 25/250 MG TABLET 1 TABLET PO ×2 (08:54→21:10)
[2020-07-22] MEDS: PRAVASTATIN SODIUM 10 MG TABLET PO (08:54)
[2020-07-22] MEDS: AMIODARONE HCL 50 MG TABLET PO (08:55)
--- NOTE | 2020-07-22 08:55 | PM.PNCARD ---
Progress Note: A&P Assessment and Plan (1) Elevated troponin I level: Code(s): R79.89 - Other specified abnormal findings of blood chemistry Status: Acute Assessment and Plan: Doubt ACS without clinical evidence of it. It is trending down. Echo shows normal EF, mild-mod MR. Cielo colon is abnormal with large apical defect suggestive of prior PA or scar. Appreciate Dr. Bryant with [facility] seeing patient on consult for cardiac cath and plan for Thursday since he was on Eliquis. Keep NPO for cath tomorrow. (2) Syncope and collapse: Code(s): R55 - Syncope and collapse Status: Acute Assessment and Plan: Probably due to orthostatic syncope with very apparent drop in BP on orthostatics (contribution from Parkinson's disease causing autonomic dysfunction?) or due to micturition syncope. On Florinef. Encourage fluid intake and to wear compression stockings. May need Midodrine prn. 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 On low dose Amiodarone due to bradycardia and prolonged QT interval. Start DVT prophylaxis with Lovenox 40 mg SQ daily. (7) SHERLY (obstructive sleep apnea): Code(s): G47.33 - Obstructive sleep apnea (adult) (pediatric) Status: Acute (8) Dizziness on standing: Code(s): R42 - Dizziness and giddiness Status: Acute Subjective Date/time seen: 07/22/20 08:55 Denies chest pain or sob. Slept better last night. Reports intermittent dizziness in sitting or standing postions. Exam Const: General: no acute distress; No in distress Neck: Neck: no JVD Carotids: no bruits Resp: Auscultation: clear to auscultation bilaterally, no crackles, no rales, no rhonchi and no wheezes Cardio: Rate: regular rate Rhythm: regular rhythm Heart sounds: no murmurs GI: GI Palp: Yes Soft to palpation and No Tenderness to palpation present (GI) Neuro: Speech: normal speech Extrem: Right lower extremity: no edema Left lower extremity: no edema Objective Data Vital Signs Vital Signs: Vital Signs - 24 hr 07/21/20 10:00 07/21/20 10:30 07/21/20 10:55 Temperature Pulse Rate 78 87 Respiratory Rate Blood Pressure 88/68 L Pulse Oximetry 07/21/20 12:00 07/21/20 14:11 07/21/20 16:00 Temperature 97.6 F 96.8 F L Pulse Rate 89 69 57 L Respiratory Rate 20 20 Blood Pressure 196/114 H 106/64 Pulse Oximetry 99 98 07/21/20 17:03 07/21/20 18:05 07/21/20 20:00 Temperature 96.8 F L Pulse Rate 73 61 Respiratory Rate 18 Blood Pressure 126/81 98/60 L Pulse Oximetry 98 07/21/20 20:21 07/21/20 20:23 07/21/20 20:36 Temperature Pulse Rate 61 Respiratory Rate Blood Pressure 71/50 L 84/49 L Pulse Oximetry 07/21/20 22:00 07/21/20 23:45 07/22/20 00:00 Temperature 97 F L Pulse Rate 58 L 84 72 Respiratory Rate 18 Blood Pressure 155/78 H Pulse Oximetry 97 07/22/20 02:00 07/22/20 04:00 07/22/20 05:55 Temperature Pulse Rate 62 63 65 Respiratory Rate 18 Blood Pressure 105/60 Pulse Oximetry 97 07/22/20 08:00 Temperature 98.7 F Pulse Rate 84 Respiratory Rate 16 Blood Pressure 150/84 H Pulse Oximetry 95 Intake/Output Intake/Output: Intake & Output 07/19/20 07/20/20 07/21/20 07/22/20 23:59 23:59 23:59 23:59 Intake Total 1000 1090 2260 Output Total 1000 2800 100 Balance 1000 90 -540 -100 Meds/Results Medications: Active Medications Generic Name Dose Route Start Last Admin Trade Name Freq PRN Reason Stop Dos
[2020-07-22] MEDS: POTASSIUM CHLORIDE 20 MEQ TABLET 40 MEQ PO (10:16)
--- NOTE | 2020-07-22 13:23 | PM.IMPN ---
Progress Note: A&P Assessment and Plan (1) Syncope and collapse: Code(s): R55 - Syncope and collapse Status: Acute Assessment and Plan: likely vasovagal in origin. Rule out cardiogenic syncope. Telemetry. Fall precautions. Check TSH reflex T4. Check echocardiogram. Check carotid Doppler ultrasound. check orthostatic vitals which have not been done yet. 07/21/20 12:34 likely vasovagal in origin. Rule out cardiogenic syncope. Telemetry. Fall precautions. Check TSH reflex T4. Check echocardiogram. Check carotid Doppler ultrasound. check orthostatic vitals which have not been done yet. 07/22/20 13:23 patient is 79-year-old male with history of Parkinson disease taking Sinemet and Florinef 0.1mg daily was brought to the emergency department after he fell while urinating, patient states that he was watching TV, got up to go to the bathroom and while urinating he fell, he denies any associated symptoms chest pain palpitation or dizziness, after the fall he denies any head injury but did feel weak and tired, patient was brought to the emergency depart further evaluation he was orthostatic in emergency, most likely patient symptoms stems from orthostatic hypotension due to autonomic dysfunction secondary to Parkinson disease or he had a vasovagal during urinating, EKG did not show any significant with acute injury, his tropes were elevated mild and flat, further evaluate patient had Lexiscan stress which showed the patient may have myocardial infarction however patient was seen by warper creeler does not suspect acute coronary disease recommending to monitor, since patient is on Eliquis which is on hold, suspect most likely patient has 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 and he is already on Florinef, will monitor his orthostatic, may start the patient on low dose of midodrine to further evaluate his orthostatic hypotension, 07/22 today patient states still feel dizzy when he tries to get up or walk. denies any associated symptoms of chest pain or palpitation, patient is taken off Eliquis and scheduled to have cardiac catheterization on Monday 07/23, to further reassess his Lexiscan test, patient seen by his Cardiology will continue present management and monitor the patient. (2) Elevated troponin I level: Code(s): R79.89 - Other specified abnormal findings of blood chemistry Status: Acute Assessment and Plan: rule out ACS. likely secondary to acute trauma. Trend troponin. telemetry. cardiology has been consulted by ER provider. 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 (5) PAF (paroxysmal atrial fibrillation): Code(s): I48.0 - Paroxysmal atrial fibrillation Status: Chronic Assessment and Plan: Continue amiodarone and Eliquis. Subjective Date/time seen: 07/22/20 13:23 patient is 79-year-old male with history of Parkinson disease taking Sinemet and Florinef 0.1mg daily was brought to the emergency department after he fell while urinating, patient states that he was watching TV, got up to go to the bathroom and while urinating he fell, he denies any associated symptoms chest pain palpitation or dizziness, after the fall he denies any head injury but did feel weak and tired, patient was brought to the emergency depart further evaluation he was orthostatic in emergency, most likely patient symptoms stems from orthostatic hypotension due to autonomic dysfunction secondary to Parkinson disease or he had a vasovagal during urinating, EKG did not show any significant with acute injury, his tropes were elevated mild and flat, further evaluate patient had Lexiscan stress which showed the patient may have myocardial in
[2020-07-23] VITALS (25 sets, daily range): BP systolic 62–161; BP diastolic 43–92; PULSE 51–80; RESP 12–18; TEMP 35.7–36.5; O2SAT 89–100
[2020-07-23 05:14] LABS: Hematocrit 45.7 % (42.0-52.0); Hemoglobin 15.8 g/dL (14.0-18.0); Mean Corpuscular HGB Conc 34.6 g/dl (32-36); Mean Corpuscular Hemoglobin 31.4 pg (26-34); Mean Corpuscular Volume 90.9 fl (80-100); Mean Platelet Volume 9.9 fl (7.4-10.4); Platelet Count Result 234 k/mm3 (150-375); Red Blood Count 5.03 M/mm3 (4.6-6.20); Red Cell Distribution Width 12.9 % (11.5-14.5); White Blood Count 8.4 K/mm3 (4.5-10.0)
[2020-07-23 05:29] LABS: Anion Gap 6 mmol/L (8-16); Blood Urea Nitrogen 17 mg/dL (9-20); Carbon Dioxide 31 mmol/L (22-30); Chloride 100 mmol/L (98-107); Estimated CRCL calculation 66 ml/min; Estimated Glomerular Filt Rate > 60; Glucose 127 mg/dL (75-110); Sodium 137 mmol/L (137-145)
--- NOTE | 2020-07-23 08:05 | PM.PNCARD ---
Progress Note: A&P Assessment and Plan (1) Elevated troponin I level: Code(s): R79.89 - Other specified abnormal findings of blood chemistry Status: Acute Assessment and Plan: Doubt ACS without clinical evidence of it. It is trending down. Echo shows normal EF, mild-mod MR. Cielo colon is abnormal with large apical defect suggestive of prior IA or scar. Appreciate Dr. Bryant with [facility] seeing patient on consult for cardiac cath and plan for Thursday since he was on Eliquis. Keep NPO for cath today. (2) Syncope and collapse: Code(s): R55 - Syncope and collapse Status: Acute Assessment and Plan: Probably due to orthostatic syncope with very apparent drop in BP on orthostatics (contribution from Parkinson's disease causing autonomic dysfunction?) or due to micturition syncope. On Florinef. Encourage fluid intake and to wear compression stockings. May need Midodrine prn. 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 On low dose Amiodarone due to bradycardia and prolonged QT interval. Start DVT prophylaxis with Lovenox 40 mg SQ daily. Resume Eliquis the following day after cardiac cath. (7) SHERLY (obstructive sleep apnea): Code(s): G47.33 - Obstructive sleep apnea (adult) (pediatric) Status: Acute (8) Dizziness on standing: Code(s): R42 - Dizziness and giddiness Status: Acute Subjective Date/time seen: 07/23/20 08:05 Denies chest pain or sob. Intermittent dizziness. Reports some flank pain and he thinks it's his kidney stones. Exam Const: General: no acute distress; No in distress Neck: Neck: no JVD Carotids: no bruits Resp: Auscultation: clear to auscultation bilaterally, no crackles, no rales, no rhonchi and no wheezes Cardio: Rate: regular rate Rhythm: regular rhythm Heart sounds: no murmurs GI: GI Palp: Yes Soft to palpation and No Tenderness to palpation present (GI) Neuro: Speech: normal speech Extrem: Right lower extremity: no edema Left lower extremity: no edema Objective Data Vital Signs Vital Signs: Vital Signs - 24 hr 07/22/20 08:53 07/22/20 08:55 07/22/20 10:03 Temperature Pulse Rate 59 L 59 L 77 Respiratory Rate Blood Pressure Pulse Oximetry 07/22/20 11:51 07/22/20 12:00 07/22/20 13:26 Temperature 97 F L Pulse Rate 66 71 Respiratory Rate 24 H Blood Pressure 180/100 H 108/76 Pulse Oximetry 97 07/22/20 14:00 07/22/20 16:00 07/22/20 18:00 Temperature 98 F Pulse Rate 65 51 L 57 L Respiratory Rate 18 Blood Pressure 152/86 H 144/111 H Pulse Oximetry 99 07/22/20 20:00 07/22/20 20:16 07/22/20 20:17 Temperature 97.2 F L 96.6 F L Pulse Rate 58 L 58 L 53 L Respiratory Rate 18 22 H Blood Pressure 116/70 80/51 L Pulse Oximetry 93 94 07/22/20 20:18 07/22/20 20:19 07/22/20 21:10 Temperature 96.5 F L 97.2 F L Pulse Rate 63 58 L 55 L Respiratory Rate 18 18 Blood Pressure 63/48 L 116/70 Pulse Oximetry 99 93 07/22/20 22:00 07/23/20 00:00 07/23/20 02:00 Temperature 97.6 F Pulse Rate 60 57 L 58 L Respiratory Rate 18 Blood Pressure 142/82 H Pulse Oximetry 92 07/23/20 04:00 07/23/20 06:00 Temperature 97.0 F L Pulse Rate 66 60 Respiratory Rate 18 Blood Pressure 161/92 H Pulse Oximetry 94 Intake/Output Intake/Output: Intake & Output 07/20/20 07/21/20 07/22/20 07/23/20 23:59 23:59 23:59 23:59 Intake Total 1090 2260 1440 Output Total 1000 2800 1475 275 Balance 90 -540 -35 -275
[2020-07-23] MEDS: CARBIDOPA/LEVODOPA 25/250 MG TABLET 1 TABLET PO ×2 (09:04→21:30)
[2020-07-23] MEDS: PROPRANOLOL HCL 40 MG TABLET PO ×2 (09:04→21:30)
[2020-07-23] MEDS: PRAVASTATIN SODIUM 10 MG TABLET PO (09:05)
[2020-07-23] MEDS: AMIODARONE HCL 50 MG TABLET PO (09:05)
[2020-07-23] MEDS: ASPIRIN 81 MG ENTERIC TABLET PO (09:05)
[2020-07-23] MEDS: TAMSULOSIN HCL 0.4 MG CAPSULE PO (09:05)
[2020-07-23] MEDS: FLUDROCORTISONE ACETATE 0.1 MG TABLET PO (09:05)
--- NOTE | 2020-07-23 09:42 | WPDMODSED ---
Moderate Sedation Note-Pt Data Patient Data Diagnosis: elevated troponin level abnormal stress test Present Complaint: 79-year-old patient with a history of atrial fibrillation entered the hospital with a syncopal episode. He was found to have an elevated troponin level which was done for reasons that are not evident as he had no chest pain symptoms of any kind. This led to a nuclear stress test which was modestly abnormal and following this angiography was recommended. Once again he is not experiencing any symptoms typical of myocardial ischemia Procedure to be performed/Plan: left heart catheterization Allergies Allergy/AdvReac Type Severity Reaction Status Date / Time doxylamine AdvReac Severe DIZZINESS, Verified 07/06/20 09:18 SYNCOPAL FEELING DEXTROMETHORPHAN HBR AdvReac Severe DIZZINESS, Uncoded 07/06/20 09:18 SYNCOPAL FEELING PSEUDOEPHEDRINE HCL AdvReac Severe DIZZINESS, Uncoded 07/06/20 09:18 SYNCOPAL FEELING Home Medications Medication Instructions Recorded Confirmed Type amiodarone 100 mg tablet 100 mg PO DAILY #30 tablet 07/12/20 07/20/20 Rx apixaban [Eliquis] 5 mg PO BID 07/19/20 07/20/20 History fludrocortisone 0.1 mg PO DAILY 07/19/20 07/20/20 History propranolol 40 mg PO BID 07/19/20 07/20/20 History tamsulosin 0.4 mg PO DAILY 07/19/20 07/20/20 History carbidopa-levodopa 1 tablet PO BID 07/20/20 07/20/20 History Current Medications: Active Medications Acetaminophen (Tylenol Tablet) 650 mg PO Q4H PRN PRN Reason: Mild Pain (1-3) or Fever Amiodarone HCl (Pacerone) 50 mg PO DAILY@0800 [facility] Last Admin: 07/23/20 09:05 Dose: 50 mg Documented by: Aspirin (Aspirin Ec) 81 mg PO QAM [facility] Last Admin: 07/23/20 09:05 Dose: 81 mg Documented by: Carbidopa/Levodopa (Sinemet 25/250 Mg) 1 tablet PO Q12HR [facility] Last Admin: 07/23/20 09:04 Dose: 1 tablet Documented by: Enoxaparin Sodium (Lovenox) 40 mg SUB-Q DAILY [facility] Last Admin: 07/23/20 09:06 Dose: Not Given Documented by: Fludrocortisone Acetate (Florinef) 0.1 mg PO DAILY [facility] Last Admin: 07/23/20 09:05 Dose: 0.1 mg Documented by: Ondansetron HCl (Zofran Inj) 4 mg IV PUSH Q4H PRN PRN Reason: Nausea Pravastatin Sodium (Pravastatin Sodium) 10 mg PO QAM [facility] Last Admin: 07/23/20 09:05 Dose: 10 mg Documented by: Propranolol HCl (Inderal) 40 mg PO Q12HR [facility] Last Admin: 07/23/20 09:04 Dose: 40 mg Documented by: Tamsulosin HCl (Flomax) 0.4 mg PO DAILY [facility] Last Admin: 07/23/20 09:05 Dose: 0.4 mg Documented by: Sedation/Anesthesia: No previous sedation/anesthesia problems (including family history). COUNT INCLUDES THE [facility] Past Medical History Medical History (Updated 07/19/20 @ 21:05 by Liam Stapleton MD) Asthma Chronotropic incompetence Dizziness on standing LEE (dyspnea on exertion) Idiopathic Parkinson's disease SHERLY (obstructive sleep apnea) PAF (paroxysmal atrial fibrillation) Trifascicular block Surgical History Surgical History History of appendectomy Family History Family History Father Silicosis Mother Heart disease Social History Social History Smoking status: Never smoker Second hand tobacco smoke exposure: No Alcohol intake: current Drinks per week: 2 Substance use: never Substance use type: does not use Gender identity (if verbalized by the patient): Male Spiritual care concerns: No Mod Sed Physical Exam Physical Exam Pre Procedural Exam: Normal: Appearance, Neck, Throat, Airway, Lungs, Heart Size, Heart Rate, Heart Rhythm, Neuro Exam and Extremities Hours since solid foods: 12 Hours since liquid intake: 12 Internal Medicine - PN: Obj Da Vital Signs Vital Signs: Vital Signs - 24 hr 07/22/20 10:03 07/22/20 11:51 07/22/20 12:00 Temperature 36.1 C L Pulse Rate 77 66 71 Respiratory Rate 24 H Blood Pr
[2020-07-23] MEDS: ONDANSETRON INJ 4 MG/2 ML VIAL IV PUSH (10:01)
--- NOTE | 2020-07-23 10:57 | WPDCARDPROC ---
Cardiac Cath Procedure Note Date of procedure:: 07/23/20 Performing physician:: Elkin Bryant MD Indication:: Abnormal nuclear stress test Brief clinical history:: this is a 79-year-old man without previous history of significant coronary disease who entered the hospital with an episode of micturition syncope. For reasons that are not clear troponin levels were sampled prompting a nuclear stress test and because of modest abnormalities and angiogram has been recommended. He is not reporting any anginal type symptoms Procedure Procedure performed:: left heart catheterization with left ventriculography and coronary angiography right femoral angiogram and Angio-Seal device deployed at site of arterial access Sedation/Medication given:: fentanyl 50 mg Versed 2 mg case start time 10:30 a.m. case end time 10:52 a.m. sedation provided by Ilsa Lorenzana RN, trained observer Access site:: right femoral artery Estimated blood loss:: 15-20 cc Procedure note:: patient was brought to the cardiac catheterization lab where the right femoral artery was punctured and a 5 Ghanaian vascular sheath was placed using the modified Seldinger technique. After this a 5 Ghanaian angle pigtail catheter was utilized to document left-sided hemodynamics and inject in the projection. Pullback pressures were then demonstrated across the aortic valve and the pigtail catheter was withdrawn. A standard 5 [place]ian FL4 catheter was used to engage inject the left coronary artery. A 5 [place]ian JR4 catheter or the Case right coronary catheter would not locate the right coronary ostium. the right coronary artery was an anomalous vessel which was injected using and a 5 [place]ian AL1 catheter. Following this the case was terminated the cineangiograms were reviewed and angiogram was done of the femoral artery through the sheath. A 6 [place]ian Angio-Seal device was deployed at the site of the arterial puncture with a good hemostatic result. Patient had no procedural complications and left the laborer road with no evidence of a groin hematoma. Findings:: Hemodynamics: Central aortic pressure is 186/92 left ventricle 186/3 end-diastolic 18 there is no gradient on pullback across the aortic valve. Left ventricle: The left ventricle was injected during the injection the catheter was EEG ejected into the aortic root and so only partial filling of the LV was achieved. It appears that the apical segment is hypodynamic the remainder of the LV is kye reasonably well. Global ejection fraction of visually estimated to be 50% once again the injection was suboptimal as the pigtail catheter was ejected at the start of the injection. The left main coronary artery is widely patent and large in caliber the LAD is a moderate caliber artery with minimal luminal irregularities there are no flow-limiting lesions seen in the LAD or any of the diagonal or septal branches. The circumflex is a large caliber vessel is codominant and gives rise to the marginal and posterior branches. Circumflex system has no significant disease right is anomalous, moderate caliber and appears to be codominant there is no disease in the RCA proper and acute marginal RV branch has a discrete 70-80% stenosis. Conclusion:: 1. 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 No significant coronary disease only lesion identified was an 80% stenosis and a right ventricular acute marginal branch of the RCA. 2. suboptimal LV injection but with evidence of apical hypokinesia overall adequate ejection fraction. As the LV was imaged with echo and nuclear stress imaging I did not feel it necessary to perform a 2nd LV injection. 3. Angio-Seal deployed at the site of the arterial puncture site Elkin Bryant MD [facility]
[2020-07-23] MEDS: SODIUM CHLORIDE 0.9% IV 1,000 ML 125 ML IV CONT (14:44)
--- NOTE | 2020-07-23 17:10 | PM.IMPN ---
Progress Note: A&P Assessment and Plan (1) Syncope and collapse: Code(s): R55 - Syncope and collapse Status: Acute Assessment and Plan: likely vasovagal in origin. Rule out cardiogenic syncope. Telemetry. Fall precautions. Check TSH reflex T4. Check echocardiogram. Check carotid Doppler ultrasound. check orthostatic vitals which have not been done yet. 07/21/20 12:34 likely vasovagal in origin. Rule out cardiogenic syncope. Telemetry. Fall precautions. Check TSH reflex T4. Check echocardiogram. Check carotid Doppler ultrasound. check orthostatic vitals which have not been done yet. 07/23/20 17:10 patient is 79-year-old male with history of Parkinson disease taking Sinemet and Florinef 0.1mg daily was brought to the emergency department after he fell while urinating, patient states that he was watching TV, got up to go to the bathroom and while urinating he fell, he denies any associated symptoms chest pain palpitation or dizziness, after the fall he denies any head injury but did feel weak and tired, patient was brought to the emergency depart further evaluation he was orthostatic in emergency, most likely patient symptoms stems from orthostatic hypotension due to autonomic dysfunction secondary to Parkinson disease or he had a vasovagal during urinating, EKG did not show any significant with acute injury, his tropes were elevated mild and flat, further evaluate patient had Lexiscan stress which showed the patient may have myocardial infarction however patient was seen by director of convention services does not suspect acute coronary disease recommending to monitor, since patient is on Eliquis which is on hold, suspect most likely patient has 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 and he is already on Florinef, will monitor his orthostatic, may start the patient on low dose of midodrine to further evaluate his orthostatic hypotension, 07/23 today patient states still feel dizzy when he tries to get up or walk. denies any associated symptoms of chest pain or palpitation, patient is taken off Eliquis and scheduled to have cardiac catheterization today, to further reassess his Lexiscan test, today earlier patient a complaint of abdomen and pelvic pain to further evaluate patient CT scan of the abdomen and did not show any kidney stones however it did show Large hiatal hernia containing virtually the entire stomach patient will need thoracic surgeon however will consult general surgery further recommendation. patient is seen by Cardiology and further recommendation to follow. (2) Elevated troponin I level: Code(s): R79.89 - Other specified abnormal findings of blood chemistry Status: Acute Assessment and Plan: rule out ACS. likely secondary to acute trauma. Trend troponin. telemetry. cardiology has been consulted by ER provider. 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 (5) PAF (paroxysmal atrial fibrillation): Code(s): I48.0 - Paroxysmal atrial fibrillation Status: Chronic Assessment and Plan: Continue amiodarone and Eliquis. Subjective Date/time seen: 07/23/20 17:10 patient is 79-year-old male with history of Parkinson disease taking Sinemet and Florinef 0.1mg daily was brought to the emergency department after he fell while urinating, patient states that he was watching TV, got up to go to the bathroom and while urinating he fell, he denies any associated symptoms chest pain palpitation or dizziness, after the fall he denies any head injury but did feel weak and tired, patient was brought to the emergency depart further evaluation he was orthostatic in emergency, most likely patient symptoms stems from orthostatic hypote
[2020-07-24] VITALS (19 sets, daily range): BP systolic 85–184; BP diastolic 53–95; PULSE 50–96; RESP 18–22; TEMP 36–36.7; O2SAT 96–100
[2020-07-24 05:32] LABS: Hematocrit 43.1 % (42.0-52.0); Hemoglobin 14.5 g/dL (14.0-18.0); Mean Corpuscular HGB Conc 33.6 g/dl (32-36); Mean Corpuscular Hemoglobin 30.7 pg (26-34); Mean Corpuscular Volume 91.3 fl (80-100); Mean Platelet Volume 9.6 fl (7.4-10.4); Platelet Count Result 212 k/mm3 (150-375); Red Blood Count 4.72 M/mm3 (4.6-6.20); Red Cell Distribution Width 12.8 % (11.5-14.5); White Blood Count 9.2 K/mm3 (4.5-10.0)
[2020-07-24 05:46] LABS: Anion Gap 4 mmol/L (8-16); Blood Urea Nitrogen 18 mg/dL (9-20); Calcium 8.8 mg/dL (8.4-10.2); Carbon Dioxide 32 mmol/L (22-30); Chloride 102 mmol/L (98-107); Estimated CRCL calculation 60 ml/min; Estimated Glomerular Filt Rate > 60; Glucose 112 mg/dL (75-110); Potassium 4.3 mmol/L (3.4-5.0); Sodium 138 mmol/L (137-145)
--- NOTE | 2020-07-24 06:37 | ECG_ITS ---
Measurements Intervals [place] Rate: 56 P: 15 ND: 294 QRS: -72 QRSD: 178 T: 269 QT: 519 QTc: 501 Interpretive Statements SINUS BRADYCARDIA WITH FIRST DEGREE AV BLOCK RIGHT BUNDLE BRANCH BLOCK LEFT ANTERIOR FASCICULAR BLOCK T WAVE ABNORMALITY IN ANTEROLAT/INF LEADS- CONSIDER ISCHEMIA PROLONGED QT INTERVAL ABNORMAL ECG Electronically Signed On 07-24-2020 9:51:36 CDT by Medardo Tong D.O.
--- NOTE | 2020-07-24 08:05 | PM.PNCARD ---
Progress Note: A&P Assessment and Plan (1) Elevated troponin I level: Code(s): R79.89 - Other specified abnormal findings of blood chemistry Status: Acute Assessment and Plan: Doubt ACS without clinical evidence of it. It is trending down. Echo shows normal EF, mild-mod MR. Cielo [place] is abnormal with large apical defect suggestive of prior LA or scar. 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 (2) Syncope and collapse: Code(s): R55 - Syncope and collapse Status: Acute Assessment and Plan: Probably due to orthostatic syncope with very apparent drop in BP on orthostatics (contribution from Parkinson's disease causing autonomic dysfunction?) or due to micturition syncope. On Florinef. Encourage fluid intake and to wear compression stockings. He will need a few sets ordered 30 mmHg thigh highs to be worn during the day. Stopped Propranol as this prevents HR compensation as he also has mild-mod chronotropic incompetence. May need something else for tremors. Start Midodrine 2.5 mg TID prn. May d/c home from cardiology standpoint and f/u with me in 1-2 weeks. 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 On low dose Amiodarone due to bradycardia and prolonged QT interval. Stop Lovenox. (7) SHERLY (obstructive sleep apnea): Code(s): G47.33 - Obstructive sleep apnea (adult) (pediatric) Status: Acute (8) Dizziness on standing: Code(s): R42 - Dizziness and giddiness Status: Acute Subjective Date/time seen: 07/24/20 08:05 Reports intermittent dizziness upon sitting or standing. Denies chest pain or sob. Has mild abdominal discomfort. Right groin bandaged without bruit, tenderness, bleeding. Exam Const: General: no acute distress; No in distress Neck: Neck: no JVD Carotids: no bruits Resp: Auscultation: clear to auscultation bilaterally, no crackles, no rales, no rhonchi and no wheezes Cardio: Rate: regular rate Rhythm: regular rhythm Heart sounds: no murmurs GI: GI Palp: Yes Soft to palpation and No Tenderness to palpation present (GI) Neuro: Speech: normal speech Extrem: Right lower extremity: no edema Left lower extremity: no edema Objective Data Vital Signs Vital Signs: Vital Signs - 24 hr 07/23/20 09:04 07/23/20 09:05 07/23/20 10:00 Temperature Pulse Rate 58 L 56 L 73 Respiratory Rate Blood Pressure Pulse Oximetry 07/23/20 11:15 07/23/20 11:30 07/23/20 11:45 Temperature Pulse Rate 63 66 64 Respiratory Rate 14 12 14 Blood Pressure 142/85 H 118/80 114/75 Pulse Oximetry 89 L 98 95 07/23/20 12:00 07/23/20 12:30 07/23/20 13:00 Temperature Pulse Rate 65 66 58 L Respiratory Rate 14 14 14 Blood Pressure 116/73 107/70 100/60 Pulse Oximetry 98 100 98 07/23/20 13:46 07/23/20 14:00 07/23/20 16:00 Temperature 96.2 F L 96.6 F L Pulse Rate 61 52 L 53 L Respiratory Rate 12 12 Blood Pressure 75/56 L 68/43 L Pulse Oximetry 95 97 07/23/20 16:34 07/23/20 18:00 07/23/20 19:58 Temperature 97.5 F L Pulse Rate 55 L 80 Respiratory Rate 18 Blood Pressure 62/43 L 84/52 L 97/57 L Pulse Oximetry 97 07/23/20 20:00 07/23/20 21:30 07/23/20 22:00 Temperature Pulse Rate 58 L 56 L 54 L Respiratory Rate Blood Pressure Pulse Oximetry 07/23/20 23:35 07/24/20 00:00 07/24/20 02:00 Temperature 97.7 F Pulse Rate 58 L 58 L 66 Respiratory Rate 18 Blood Pressure 109/65 Pulse Oximetry 97
[2020-07-24] MEDS: FLUDROCORTISONE ACETATE 0.1 MG TABLET PO (09:42)
[2020-07-24] MEDS: AMIODARONE HCL 50 MG TABLET PO (09:42)
[2020-07-24] MEDS: ASPIRIN 81 MG ENTERIC TABLET PO (09:43)
[2020-07-24] MEDS: PRAVASTATIN SODIUM 10 MG TABLET PO (09:43)
[2020-07-24] MEDS: TAMSULOSIN HCL 0.4 MG CAPSULE PO (09:43)
[2020-07-24] MEDS: CARBIDOPA/LEVODOPA 25/250 MG TABLET 1 TABLET PO ×2 (09:43→21:01)
[2020-07-24] MEDS: MIDODRINE HCL 2.5 MG TABLET PO ×3 (09:43→18:43)
--- NOTE | 2020-07-24 09:50 | PM.EVENT ---
Event Note Event Note Event Note: Right groin site check post cardiac catheterization 07/23/2020. Subjective: Denied chest discomfort or shortness of breath. Lightheaded again this morning while sitting up. Right groin site without swelling or bleeding. No femoral bruit. Distal pulses intact. See discharge instructions for activity restriction and wound care. [facility] signing off. Please call Dr. Tong for any other cardiac issues.
[2020-07-24] MEDS: APIXABAN 5 MG TABLET PO ×2 (09:53→21:59)
--- NOTE | 2020-07-24 13:42 | PM.CNGS ---
Assessment and Plan Assessment and plan (1) Abnormal CT of the abdomen: Code(s): R93.5 - Abnormal findings on diagnostic imaging of other abdominal regions, including retroperitoneum Status: Acute Assessment and Plan: Patient has no symptoms of this hiatal hernia. It was an incidental finding on the CT. This is a large hernia containing most of his stomach, but he does not have any signs or symptoms of gastric volvulus or gastric outlet obstruction. This could some day become more symptomatic, but at his age this would be a high risk operation for repair. This also would not be a procedure that I would recommend at this facility as he may require thoracic surgery to be available for possible thoracic approach to reduce the hernia. I do not see any reason to continue following this patient during his hospitalization, but would be happy to see him again if he begins experiencing signs of gastric outlet obstruction. Would recommend possible PPI to help prevent acid reflux symptoms. (2) Hiatal hernia: Code(s): K44.9 - Diaphragmatic hernia without obstruction or gangrene Status: Acute History of Present Illness Consult details Consult date: 07/24/20 Reason for consult: other (Abnormal imaging) Requesting physician: Elmira Medina MD Narrative: This is a 79-year-old man who I was asked to see for a large hiatal hernia that was identified on CT. He is admitted for unrelated problems but was experiencing some left lower quadrant abdominal pain. A CT of his abdomen and pelvis was obtained and no source of his pain in the left lower abdomen was identified. This did however show a large hiatal hernia containing most of the patient's stomach. The patient denies any epigastric pain. He denies any difficulty eating. He has no history of dysphagia with solid foods. He complains of occasional acid reflux or heartburn. He denies any hematochezia or melena. He does have occasional constipation. He has never been told he had a hiatal hernia before. Review of Systems Review of Systems: All systems reviewed & are unremarkable except as noted in HPI and below Eyes: Eyes: Denies change in vision ENT: Denies hearing loss, Denies neck pain and Denies sore throat Cardiovascular: Cardiovascular: Denies chest pain and Denies dyspnea Respiratory: Respiratory: Denies cough, Denies dyspnea and Denies wheezing Gastrointestinal: Gastrointestinal: Reports as per HPI Genitourinary: Genitourinary: Denies hematuria and Denies dysuria Musculoskeletal: Musculoskeletal: Denies arthralgias, Denies joint swelling and Denies neck pain Allergic/Immunologic: Allergic/Immunologic: Denies wheezing PMFSH Past Medical History Medical History Asthma Chronotropic incompetence Dizziness on standing LEE (dyspnea on exertion) Idiopathic Parkinson's disease SHERLY (obstructive sleep apnea) PAF (paroxysmal atrial fibrillation) Trifascicular block Surgical History Surgical History History of appendectomy Family History Family History Father Silicosis Mother Heart disease Social History Social History Smoking status: Never smoker Second hand tobacco smoke exposure: No Alcohol intake: current Drinks per week: 2 Substance use: never Substance use type: does not use Gender identity (if verbalized by the patient): Male Spiritual care concerns: No Meds Home Medications and Allergies Home Medications Medication Instructions Recorded Confirmed Type amiodarone 100 mg tablet 100 mg PO DAILY #30 tablet 07/12/20 07/20/20 Rx apixaban [Eliquis] 5 mg PO BID 07/19/20 07/20/20 History fludrocortisone 0.1 mg PO DAILY 07/19/20 07/20/20 History propranolol 40 mg PO BID 07/19/20 07/20/20 History ta
--- NOTE | 2020-07-24 18:05 | PM.IMPN ---
Progress Note: A&P Assessment and Plan (1) Syncope and collapse: Code(s): R55 - Syncope and collapse Status: Acute Assessment and Plan: likely vasovagal in origin. Rule out cardiogenic syncope. Telemetry. Fall precautions. Check TSH reflex T4. Check echocardiogram. Check carotid Doppler ultrasound. check orthostatic vitals which have not been done yet. 07/21/20 12:34 likely vasovagal in origin. Rule out cardiogenic syncope. Telemetry. Fall precautions. Check TSH reflex T4. Check echocardiogram. Check carotid Doppler ultrasound. check orthostatic vitals which have not been done yet. 07/24/20 18:05 patient is 79-year-old male with history of Parkinson disease taking Sinemet and Florinef 0.1mg daily was brought to the emergency department after he fell while urinating, patient states that he was watching TV, got up to go to the bathroom and while urinating he fell, he denies any associated symptoms chest pain palpitation or dizziness, after the fall he denies any head injury but did feel weak and tired, patient was brought to the emergency depart further evaluation he was orthostatic in emergency, most likely patient symptoms stems from orthostatic hypotension due to autonomic dysfunction secondary to Parkinson disease or he had a vasovagal during urinating, EKG did not show any significant with acute injury, his tropes were elevated mild and flat, further evaluate patient had Lexiscan stress which showed the patient may have myocardial infarction however patient was seen by loan coordinator does not suspect acute coronary disease recommending to monitor, since patient is on Eliquis which is on hold, suspect most likely patient has 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 and he is already on Florinef, will monitor his orthostatic, may start the patient on low dose of midodrine to further evaluate his orthostatic hypotension, 07/23 patient had cardiac catheterization which was essentially normal, patient also had a complaint abdominal had a CT scan which showed a patient has significant large hiatal hernia in the stomach is in his chest, have no symptoms, patient was seen by surgery team recommended conservative managed due to his age and no complaint, in the future he may need thoracic surgery if he becomes symptomatic, today patient was started on low-dose midodrine will monitor patient blood pressure and syncopal event if remains stable will discharge the patient home tomorrow (2) Elevated troponin I level: Code(s): R79.89 - Other specified abnormal findings of blood chemistry Status: Acute Assessment and Plan: rule out ACS. likely secondary to acute trauma. Trend troponin. telemetry. cardiology has been consulted by ER provider. 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 (5) PAF (paroxysmal atrial fibrillation): Code(s): I48.0 - Paroxysmal atrial fibrillation Status: Chronic Assessment and Plan: Continue amiodarone and Eliquis. Subjective Date/time seen: 07/24/20 18:05 patient is 79-year-old male with history of Parkinson disease taking Sinemet and Florinef 0.1mg daily was brought to the emergency department after he fell while urinating, patient states that he was watching TV, got up to go to the bathroom and while urinating he fell, he denies any associated symptoms chest pain palpitation or dizziness, after the fall he denies any head injury but did feel weak and tired, patient was brought to the emergency depart further evaluation he was orthostatic in emergency, most likely patient symptoms stems from orthostatic hypotension due to autonomic dysfunction secondary to Parkinson disease or he had a vasovagal
[2020-07-25] VITALS (21 sets, daily range): BP systolic 58–177; BP diastolic 36–98; PULSE 61–101; RESP 20–22; TEMP 35.9–36.7; O2SAT 95–98
[2020-07-25 06:31] LABS: Hematocrit 43.3 % (42.0-52.0); Hemoglobin 14.9 g/dL (14.0-18.0); Mean Corpuscular HGB Conc 34.4 g/dl (32-36); Mean Corpuscular Hemoglobin 31.4 pg (26-34); Mean Corpuscular Volume 91.2 fl (80-100); Mean Platelet Volume 10.4 fl (7.4-10.4); Platelet Count Result 214 k/mm3 (150-375); Red Blood Count 4.75 M/mm3 (4.6-6.20); Red Cell Distribution Width 12.6 % (11.5-14.5); White Blood Count 8.9 K/mm3 (4.5-10.0)
[2020-07-25 06:44] LABS: Anion Gap 2 mmol/L (8-16); Blood Urea Nitrogen 16 mg/dL (9-20); Calcium 8.8 mg/dL (8.4-10.2); Carbon Dioxide 33 mmol/L (22-30); Chloride 100 mmol/L (98-107); Estimated CRCL calculation 66 ml/min; Estimated Glomerular Filt Rate > 60; Glucose 103 mg/dL (75-110); Potassium 4.1 mmol/L (3.4-5.0); Sodium 135 mmol/L (137-145)
--- NOTE | 2020-07-25 07:57 | PM.PNCARD ---
Progress Note: A&P Assessment and Plan (1) Elevated troponin I level: Code(s): R79.89 - Other specified abnormal findings of blood chemistry Status: Acute Assessment and Plan: Doubt ACS without clinical evidence of it. It is trending down. Echo shows normal EF, mild-mod MR. Cielo [place] is abnormal with large apical defect suggestive of prior CA or scar. 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 (2) Syncope and collapse: Code(s): R55 - Syncope and collapse Status: Acute Assessment and Plan: Probably due to orthostatic syncope with very apparent drop in BP on orthostatics (contribution from Parkinson's disease causing autonomic dysfunction?) or due to micturition syncope. On Florinef. Encourage fluid intake and to wear compression stockings. He will need a few sets ordered 30 mmHg thigh highs to be worn during the day. Stopped Propranol as this prevents HR compensation as he also has mild-mod chronotropic incompetence. May need something else for tremors. Started Midodrine 2.5 mg TID prn. May d/c home from cardiology standpoint and f/u with me in 1-2 weeks. 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 On low dose Amiodarone due to bradycardia and prolonged QT interval. (7) SHERLY (obstructive sleep apnea): Code(s): G47.33 - Obstructive sleep apnea (adult) (pediatric) Status: Acute (8) Dizziness on standing: Code(s): R42 - Dizziness and giddiness Status: Acute Subjective Date/time seen: 07/25/20 07:57 Denies chest pain or sob. Less dizziness in sitting or standing position. Exam Const: General: no acute distress; No in distress Neck: Neck: no JVD Carotids: no bruits Resp: Auscultation: clear to auscultation bilaterally, no crackles, no rales, no rhonchi and no wheezes Cardio: Rate: regular rate Rhythm: regular rhythm Heart sounds: no murmurs GI: GI Palp: Yes Soft to palpation and No Tenderness to palpation present (GI) Neuro: Speech: normal speech Extrem: Right lower extremity: no edema Left lower extremity: no edema Objective Data Vital Signs Vital Signs: Vital Signs - 24 hr 07/24/20 08:22 07/24/20 08:23 07/24/20 08:24 Temperature 96.9 F L 96.9 F L Pulse Rate 62 62 Respiratory Rate 21 H 21 H Blood Pressure 178/90 H 131/84 98/60 L Pulse Oximetry 100 100 07/24/20 08:45 07/24/20 09:42 07/24/20 12:00 Temperature 97.2 F L Pulse Rate 55 L 61 66 Respiratory Rate 22 H Blood Pressure 184/95 H Pulse Oximetry 96 07/24/20 12:21 07/24/20 16:00 07/24/20 16:43 Temperature 96.8 F L Pulse Rate 62 88 96 Respiratory Rate 21 H Blood Pressure 122/80 Pulse Oximetry 96 07/24/20 18:00 07/24/20 19:50 07/24/20 20:00 Temperature 97.7 F Pulse Rate 96 57 L 57 L Respiratory Rate 18 Blood Pressure 115/68 Pulse Oximetry 96 07/24/20 22:00 07/24/20 23:48 07/25/20 00:00 Temperature 97.7 F Pulse Rate 66 50 L 83 Respiratory Rate 20 Blood Pressure 159/82 H Pulse Oximetry 97 07/25/20 02:00 07/25/20 04:00 07/25/20 06:00 Temperature 97.9 F Pulse Rate 84 70 69 Respiratory Rate 20 Blood Pressure 101/51 L Pulse Oximetry 95 07/25/20 06:55 Temperature Pulse Rate Respiratory Rate Blood Pressure 76/36 L Pulse Oximetry Intake/Output Intake/Output: Intake & Output 07/22/20 07/23/20 07/24/20 07/25/20 23:59 23:59 23:59 23:59 Intake Total 1440 1740 1270 150 Output Total 7350 911 3595
[2020-07-25] MEDS: CARBIDOPA/LEVODOPA 25/250 MG TABLET 1 TABLET PO ×2 (08:15→21:19)
[2020-07-25] MEDS: APIXABAN 5 MG TABLET PO ×2 (08:15→21:19)
[2020-07-25] MEDS: PRAVASTATIN SODIUM 10 MG TABLET PO (08:15)
[2020-07-25] MEDS: FLUDROCORTISONE ACETATE 0.1 MG TABLET PO (08:15)
[2020-07-25] MEDS: MIDODRINE HCL 2.5 MG TABLET PO ×3 (08:15→16:54)
[2020-07-25] MEDS: TAMSULOSIN HCL 0.4 MG CAPSULE PO (08:15)
[2020-07-25] MEDS: AMIODARONE HCL 50 MG TABLET PO (08:16)
--- NOTE | 2020-07-25 17:14 | PM.IMPN ---
Progress Note: A&P Assessment and Plan (1) Syncope and collapse: Code(s): R55 - Syncope and collapse Status: Acute Assessment and Plan: likely vasovagal in origin. Rule out cardiogenic syncope. Telemetry. Fall precautions. Check TSH reflex T4. Check echocardiogram. Check carotid Doppler ultrasound. check orthostatic vitals which have not been done yet. 07/21/20 12:34 likely vasovagal in origin. Rule out cardiogenic syncope. Telemetry. Fall precautions. Check TSH reflex T4. Check echocardiogram. Check carotid Doppler ultrasound. check orthostatic vitals which have not been done yet. 07/25/20 17:14 patient is 79-year-old male with history of Parkinson disease taking Sinemet and Florinef 0.1mg daily was brought to the emergency department after he fell while urinating, patient states that he was watching TV, got up to go to the bathroom and while urinating he fell, he denies any associated symptoms chest pain palpitation or dizziness, after the fall he denies any head injury but did feel weak and tired, patient was brought to the emergency depart further evaluation he was orthostatic in emergency, most likely patient symptoms stems from orthostatic hypotension due to autonomic dysfunction secondary to Parkinson disease or he had a vasovagal during urinating, EKG did not show any significant with acute injury, his tropes were elevated mild and flat, further evaluate patient had Lexiscan stress which showed the patient may have myocardial infarction however patient was seen by rug inspector helper does not suspect acute coronary disease recommending to monitor, since patient is on Eliquis which is on hold, suspect most likely patient has 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 and he is already on Florinef, will monitor his orthostatic, may start the patient on low dose of midodrine to further evaluate his orthostatic hypotension, 07/23 patient had cardiac catheterization which was essentially normal, patient also had a complaint abdominal had a CT scan which showed a patient has significant large hiatal hernia in the stomach is in his chest, have no symptoms, patient was seen by surgery team recommended conservative managed due to his age and no complaint, in the future he may need thoracic surgery if he becomes symptomatic, on 07/24 patient was started on low-dose midodrine, will monitor patient blood pressure and syncopal, on 07/25 today patient blood pressure is quite low 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 (2) Elevated troponin I level: Code(s): R79.89 - Other specified abnormal findings of blood chemistry Status: Acute Assessment and Plan: rule out ACS. likely secondary to acute trauma. Trend troponin. telemetry. cardiology has been consulted by ER provider. 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 (5) PAF (paroxysmal atrial fibrillation): Code(s): I48.0 - Paroxysmal atrial fibrillation Status: Chronic Assessment and Plan: Continue amiodarone and Eliquis. Subjective Date/time seen: 07/25/20 17:14 patient is 79-year-old male with history of Parkinson disease taking Sinemet and Florinef 0.1mg daily was brought to the emergency department after he fell while urinating, patient states that he was watching TV, got up to go to the bathroom and while urinating he fell, he denies any associated symptoms chest pain palpitation or dizziness, after the fall h
[2020-07-26] VITALS (13 sets, daily range): BP systolic 97–133; BP diastolic 53–80; PULSE 70–751; RESP 16–95; TEMP 36.2–37.1; O2SAT 94–98
--- NOTE | 2020-07-26 01:13 | PC.NURSE ---
This patient, Higinio Agosto Jr., was transferred to [facility] on 07/26/20 at 1250. Personal belongings sent with patient. Report given to Felipe. Appropriate documentation sent with patient.
--- NOTE | 2020-07-26 01:16 | PC.NURSE ---
Pt from IMU 213 to Rm 248 by bed per tech. Pt belongings list checked and pt is resting in bed. Pt transfer was delayed due to orthostatic episode when transferring patient, pt is comfortable now and on strict bedrest for the remainder of the night.
[2020-07-26] MEDS: MIDODRINE HCL 2.5 MG TABLET PO ×3 (08:23→16:54)
[2020-07-26] MEDS: APIXABAN 5 MG TABLET PO ×2 (08:23→21:55)
[2020-07-26] MEDS: PRAVASTATIN SODIUM 10 MG TABLET PO (08:23)
[2020-07-26] MEDS: AMIODARONE HCL 50 MG TABLET PO (08:23)
[2020-07-26] MEDS: FLUDROCORTISONE ACETATE 0.1 MG TABLET PO (08:23)
[2020-07-26] MEDS: CARBIDOPA/LEVODOPA 25/250 MG TABLET 1 TABLET PO ×2 (08:23→21:55)
[2020-07-26] MEDS: TAMSULOSIN HCL 0.4 MG CAPSULE PO (08:23)
--- NOTE | 2020-07-26 10:38 | PM.PNCARD ---
Progress Note: A&P Assessment and Plan (1) Elevated troponin I level: Code(s): R79.89 - Other specified abnormal findings of blood chemistry Status: Acute Assessment and Plan: Doubt ACS without clinical evidence of it. It is trending down. Echo shows normal EF, mild-mod MR. Cielo [place]om[place] is abnormal with large apical defect suggestive of prior TN or scar. 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 (2) Syncope and collapse: Code(s): R55 - Syncope and collapse Status: Acute Assessment and Plan: Probably due to orthostatic syncope with very apparent drop in BP on orthostatics (contribution from Parkinson's disease causing autonomic dysfunction?) or due to micturition syncope. On Florinef. Encourage fluid intake and to wear compression stockings. He will need a few sets ordered 30 mmHg thigh highs to be worn during the day. Stopped Propranol as this prevents HR compensation as he also has mild-mod chronotropic incompetence. May need something else for tremors. Started Midodrine 2.5 mg TID prn. May d/c home from cardiology standpoint to home or acute rehab and f/u with me in 1-2 weeks. 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 On low dose Amiodarone due to bradycardia and prolonged QT interval. (7) SHERLY (obstructive sleep apnea): Code(s): G47.33 - Obstructive sleep apnea (adult) (pediatric) Status: Acute (8) Dizziness on standing: Code(s): R42 - Dizziness and giddiness Status: Acute Subjective Date/time seen: 07/26/20 10:38 Denies chest pain or sob, or dizziness. Feels weak. Exam Const: General: no acute distress; No in distress Neck: Neck: no JVD Carotids: no bruits Resp: Auscultation: clear to auscultation bilaterally, no crackles, no rales, no rhonchi and no wheezes Cardio: Rate: regular rate Rhythm: regular rhythm Heart sounds: no murmurs GI: GI Palp: Yes Soft to palpation and No Tenderness to palpation present (GI) Neuro: Speech: normal speech Extrem: Right lower extremity: no edema Left lower extremity: no edema Objective Data Vital Signs Vital Signs: Vital Signs - 24 hr 07/25/20 12:00 07/25/20 12:07 07/25/20 14:00 Temperature 96.7 F L Pulse Rate 78 70 71 Respiratory Rate 20 Blood Pressure 177/89 H Pulse Oximetry 98 07/25/20 16:00 07/25/20 18:00 07/25/20 19:48 Temperature 97.2 F L 97.7 F Pulse Rate 66 70 70 Respiratory Rate 22 H 20 Blood Pressure 97/68 L 110/64 Pulse Oximetry 97 97 07/25/20 20:00 07/25/20 20:36 07/25/20 22:00 Temperature Pulse Rate 65 68 Respiratory Rate Blood Pressure 80/57 L Pulse Oximetry 07/25/20 23:56 07/26/20 00:00 07/26/20 04:00 Temperature 98.0 F 97.5 F L Pulse Rate 97 83 75 Respiratory Rate 20 18 Blood Pressure 164/96 H 109/61 Pulse Oximetry 97 98 07/26/20 08:00 07/26/20 08:05 07/26/20 08:10 Temperature 97.1 F L Pulse Rate 70 Respiratory Rate 16 Blood Pressure 122/80 107/64 118/78 Pulse Oximetry 96 07/26/20 08:23 Temperature Pulse Rate 85 Respiratory Rate Blood Pressure Pulse Oximetry Intake/Output Intake/Output: Intake & Output 07/23/20 07/24/20 07/25/20 07/26/20 23:59 23:59 23:59 23:59 Intake Total 1740 1270 1200 240 Output Total 675 1525 750 350 Balance 1065 -255 450 -110 Meds/Results Medications: Active Medications Generic Name Dose Route Start Last Admin Trade Name Freq PRN Reason Stop Dose Admin Aceta
--- NOTE | 2020-07-26 15:16 | PM.IMPN ---
Progress Note: A&P Assessment and Plan (1) Syncope and collapse: Code(s): R55 - Syncope and collapse Status: Acute Assessment and Plan: likely vasovagal in origin. Rule out cardiogenic syncope. Telemetry. Fall precautions. Check TSH reflex T4. Check echocardiogram. Check carotid Doppler ultrasound. check orthostatic vitals which have not been done yet. 07/21/20 12:34 likely vasovagal in origin. Rule out cardiogenic syncope. Telemetry. Fall precautions. Check TSH reflex T4. Check echocardiogram. Check carotid Doppler ultrasound. check orthostatic vitals which have not been done yet. 07/26/20 15:16 patient is 79-year-old male with history of Parkinson disease taking Sinemet and Florinef 0.1mg daily was brought to the emergency department after he fell while urinating, patient states that he was watching TV, got up to go to the bathroom and while urinating he fell, he denies any associated symptoms chest pain palpitation or dizziness, after the fall he denies any head injury but did feel weak and tired, patient was brought to the emergency depart further evaluation he was orthostatic in emergency, most likely patient symptoms stems from orthostatic hypotension due to autonomic dysfunction secondary to Parkinson disease or he had a vasovagal during urinating, EKG did not show any significant with acute injury, his tropes were elevated mild and flat, further evaluate patient had Lexiscan stress which showed the patient may have myocardial infarction however patient was seen by rn office does not suspect acute coronary disease recommending to monitor, since patient is on Eliquis which is on hold, suspect most likely patient has 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 and he is already on Florinef, will monitor his orthostatic, may start the patient on low dose of midodrine to further evaluate his orthostatic hypotension, 07/23 patient had cardiac catheterization which was essentially normal, patient also had a complaint abdominal had a CT scan which showed a patient has significant large hiatal hernia in the stomach is in his chest, have no symptoms, patient was seen by surgery team recommended conservative managed due to his age and no complaint, in the future he may need thoracic surgery if he becomes symptomatic, on 07/24 patient was started on low-dose midodrine, will monitor patient blood pressure and syncopal, on 07/26 today patient 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 will monitor the patient in the hospital before discharging home once his blood pressure is stable, however patient will benefit going to acute rehab as he is quite weak and hypotensive. (2) Elevated troponin I level: Code(s): R79.89 - Other specified abnormal findings of blood chemistry Status: Acute Assessment and Plan: rule out ACS. likely secondary to acute trauma. Trend troponin. telemetry. cardiology has been consulted by ER provider. 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 (5) PAF (paroxysmal atrial fibrillation): Code(s): I48.0 - Paroxysmal atrial fibrillation Status: Chronic Assessment and Plan: Continue amiodarone and Eliquis. Subjective Date/time seen: 07/26/20 15:16 patient is 79-year-old male with history of Parkinson disease taking Sinemet and Florinef 0.1mg daily was brought to the emergency departm
[2020-07-27] VITALS (14 sets, daily range): BP systolic 80–162; BP diastolic 59–94; PULSE 80–103; RESP 12–20; TEMP 36.5–37; O2SAT 91–99
[2020-07-27 06:05] LABS: Hematocrit 44.8 % (42.0-52.0); Hemoglobin 15.4 g/dL (14.0-18.0); Mean Corpuscular HGB Conc 34.4 g/dl (32-36); Mean Corpuscular Hemoglobin 30.5 pg (26-34); Mean Corpuscular Volume 88.7 fl (80-100); Platelet Count Result 258 k/mm3 (150-375); Red Blood Count 5.05 M/mm3 (4.6-6.20); Red Cell Distribution Width 12.7 % (11.5-14.5); White Blood Count 8.7 K/mm3 (4.5-10.0)
[2020-07-27 06:18] LABS: Anion Gap 4 mmol/L (8-16); Blood Urea Nitrogen 16 mg/dL (9-20); Calcium 9.1 mg/dL (8.4-10.2); Carbon Dioxide 33 mmol/L (22-30); Chloride 99 mmol/L (98-107); Estimated CRCL calculation 66 ml/min; Estimated Glomerular Filt Rate > 60; Glucose 116 mg/dL (75-110); Sodium 136 mmol/L (137-145)
--- NOTE | 2020-07-27 07:50 | PM.PNCARD ---
Progress Note: A&P Assessment and Plan (1) Elevated troponin I level: Code(s): R79.89 - Other specified abnormal findings of blood chemistry Status: Acute Assessment and Plan: Not ACS without clinical evidence of it. It is trending down. Echo shows normal EF, mild-mod MR. Cielo [place] is abnormal with large apical defect suggestive of prior [place] or scar. 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 (2) Syncope and collapse: Code(s): R55 - Syncope and collapse Status: Acute Assessment and Plan: Probably due to orthostatic syncope with very apparent drop in BP on orthostatics (contribution from Parkinson's disease causing autonomic dysfunction?) or due to micturition syncope. On Florinef. Encourage fluid intake and to wear compression stockings. He will need a few sets ordered 30 mmHg thigh highs to be worn during the day. Stopped Propranol as this prevents HR compensation as he also has mild-mod chronotropic incompetence. May need something else for tremors. Started Midodrine 2.5 mg TID prn. May d/c home from cardiology standpoint to home or acute rehab and f/u with me in 1-2 weeks. 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 On low dose Amiodarone due to bradycardia and prolonged QT interval. (7) SHERLY (obstructive sleep apnea): Code(s): G47.33 - Obstructive sleep apnea (adult) (pediatric) Status: Acute (8) Dizziness on standing: Code(s): R42 - Dizziness and giddiness Status: Acute Subjective Date/time seen: 07/27/20 07:50 Denies chest pain or sob. Less dizziness. Exam Const: General: no acute distress; No in distress Neck: Neck: no JVD Carotids: no bruits Resp: Auscultation: clear to auscultation bilaterally, no crackles, no rales, no rhonchi and no wheezes Cardio: Rate: regular rate Rhythm: regular rhythm Heart sounds: no murmurs GI: GI Palp: Yes Soft to palpation and No Tenderness to palpation present (GI) Neuro: Speech: normal speech Extrem: Right lower extremity: no edema Left lower extremity: no edema Objective Data Vital Signs Vital Signs: Vital Signs - 24 hr 07/26/20 08:00 07/26/20 08:05 07/26/20 08:10 Temperature 97.1 F L Pulse Rate 80 Respiratory Rate 16 Blood Pressure 122/80 107/64 118/78 Pulse Oximetry 96 07/26/20 08:23 07/26/20 12:00 07/26/20 14:00 Temperature 98.7 F Pulse Rate 85 112 H 751 H Respiratory Rate 95 H Blood Pressure 133/79 Pulse Oximetry 95 07/26/20 16:00 07/26/20 20:00 07/26/20 21:29 Temperature 98.2 F 98.2 F Pulse Rate 83 78 70 Respiratory Rate 16 16 Blood Pressure 103/54 L 103/54 L Pulse Oximetry 96 94 07/26/20 21:39 07/26/20 21:40 07/27/20 00:00 Temperature 98.2 F 98.2 F Pulse Rate 80 87 92 Respiratory Rate 16 16 Blood Pressure 97/65 L 97/53 L Pulse Oximetry 96 97 07/27/20 02:00 07/27/20 04:00 07/27/20 06:00 Temperature 98.6 F 98.2 F Pulse Rate 91 88 86 Respiratory Rate 16 12 Blood Pressure 137/78 112/68 Pulse Oximetry 91 96 Intake/Output Intake/Output: Intake & Output 07/24/20 07/25/20 07/26/20 07/27/20 23:59 23:59 23:59 23:59 Intake Total 1270 1200 1270 350 Output Total 1525 750 950 550 Balance -255 450 320 -200 Meds/Results Medications: Active Medications Generic Name Dose Route Start Last Admin Trade Name Freq PRN Reason Stop Dose Admin Acetaminophen 650 mg 07/19/20 20:32 Tylenol Tablet PO Q4H PRN Mild Pain (
[2020-07-27] MEDS: MIDODRINE HCL 2.5 MG TABLET PO (08:30)
[2020-07-27] MEDS: APIXABAN 5 MG TABLET PO ×2 (08:30→20:30)
[2020-07-27] MEDS: PRAVASTATIN SODIUM 10 MG TABLET PO (08:30)
[2020-07-27] MEDS: AMIODARONE HCL 50 MG TABLET PO (08:30)
[2020-07-27] MEDS: TAMSULOSIN HCL 0.4 MG CAPSULE PO (08:31)
[2020-07-27] MEDS: CARBIDOPA/LEVODOPA 25/250 MG TABLET 1 TABLET PO ×2 (08:31→20:30)
[2020-07-27] MEDS: FLUDROCORTISONE ACETATE 0.1 MG TABLET PO (08:31)
--- NOTE | 2020-07-27 11:13 | PCNWS ---
Weekly nutritional screen. Patient is tolerating current diet with adequate intake. No weight loss reported. No nutritional needs at this time.
[2020-07-27] MEDS: MIDODRINE HCL 2.5 MG TABLET 5 MG PO ×2 (12:43→17:45)
--- NOTE | 2020-07-27 14:13 | PM.IMPN ---
Progress Note: A&P Assessment and Plan (1) Syncope and collapse: Code(s): R55 - Syncope and collapse Status: Acute Assessment and Plan: likely vasovagal in origin. Rule out cardiogenic syncope. Telemetry. Fall precautions. Check TSH reflex T4. Check echocardiogram. Check carotid Doppler ultrasound. check orthostatic vitals which have not been done yet. 07/21/20 12:34 likely vasovagal in origin. Rule out cardiogenic syncope. Telemetry. Fall precautions. Check TSH reflex T4. Check echocardiogram. Check carotid Doppler ultrasound. check orthostatic vitals which have not been done yet. 07/27/20 14:13 patient is 79-year-old male with history of Parkinson disease taking Sinemet and Florinef 0.1mg daily was brought to the emergency department after he fell while urinating, patient states that he was watching TV, got up to go to the bathroom and while urinating he fell, he denies any associated symptoms chest pain palpitation or dizziness, after the fall he denies any head injury but did feel weak and tired, patient was brought to the emergency depart further evaluation he was orthostatic in emergency, most likely patient symptoms stems from orthostatic hypotension due to autonomic dysfunction secondary to Parkinson disease or he had a vasovagal during urinating, EKG did not show any significant with acute injury, his tropes were elevated mild and flat, further evaluate patient had Lexiscan stress which showed the patient may have myocardial infarction however patient was seen by manager career does not suspect acute coronary disease recommending to monitor, since patient is on Eliquis which is on hold, suspect most likely patient has 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 and he is already on Florinef, will monitor his orthostatic, may start the patient on low dose of midodrine to further evaluate his orthostatic hypotension, 07/23 patient had cardiac catheterization which was essentially normal, patient also had a complaint abdominal had a CT scan which showed a patient has significant large hiatal hernia in the stomach is in his chest, have no symptoms, patient was seen by surgery team recommended conservative managed due to his age and no complaint, in the future he may need thoracic surgery if he becomes symptomatic, on 07/24 patient was started on low-dose midodrine, will monitor patient blood pressure and syncopal, on 07/26 patient blood pressure was soft in the neurology technologist and had syncopal episode however it does climb up later in the afternoon, patient needs to get acclimated with midodrine, Again today on 07/27 patient had a syncopal episode where fell discuss 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 will monitor the patient in the hospital before discharging home once his blood pressure is stable, however patient will benefit going to acute rehab as he is quite weak and hypotensive. (2) Elevated troponin I level: Code(s): R79.89 - Other specified abnormal findings of blood chemistry Status: Acute Assessment and Plan: rule out ACS. likely secondary to acute trauma. Trend troponin. telemetry. cardiology has been consulted by ER provider. 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 (5) PAF (paroxysmal atrial fibrillation): Code(s): I48.0 - Paroxysmal atrial fibrillation Status: Chronic Assessment and Plan: Continue amiodarone and Eliquis. Subjective Date/time seen: 07/27/20 14:
--- NOTE | 2020-07-27 15:57 | WPDNEURCNPN ---
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 is a 79 year old male who has been in the hospital because of vasovagal syncope probably related to the postural hypertension I am consulted to see him if anything further can be done as for the medication management is concerned the patient is quite happy at this time and the has clearly signs of Parkinson's disease but quite alert denies any headache nausea vomiting chest pain shortness of breath fever chills sore throat Review of Systems Review of Systems: All systems reviewed & are unremarkable except as noted in HPI and below PMFSH Past Medical History Medical History Asthma Chronotropic incompetence Dizziness on standing LEE (dyspnea on exertion) Idiopathic Parkinson's disease SHERLY (obstructive sleep apnea) PAF (paroxysmal atrial fibrillation) Trifascicular block Surgical History Surgical History History of appendectomy Family History Family History Father Silicosis Mother Heart disease Social History Social History Smoking status: Never smoker Second hand tobacco smoke exposure: No Alcohol intake: current Drinks per week: 2 Substance use: never Substance use type: does not use Gender identity (if verbalized by the patient): Male Spiritual care concerns: No Meds Home Medications and Allergies Home Medications Medication Instructions Recorded Confirmed Type amiodarone 100 mg tablet 100 mg PO DAILY #30 tablet 07/12/20 07/20/20 Rx apixaban [Eliquis] 5 mg PO BID 07/19/20 07/20/20 History fludrocortisone 0.1 mg PO DAILY 07/19/20 07/20/20 History propranolol 40 mg PO BID 07/19/20 07/20/20 History tamsulosin 0.4 mg PO DAILY 07/19/20 07/20/20 History carbidopa-levodopa 1 tablet PO BID 07/20/20 07/20/20 History Allergies Allergy/AdvReac Type Severity Reaction Status Date / Time doxylamine AdvReac Severe DIZZINESS, Verified 07/06/20 09:18 SYNCOPAL FEELING acetaminophen [From Tylenol] AdvReac Dizziness Verified 07/23/20 10:29 DEXTROMETHORPHAN HBR AdvReac Severe DIZZINESS, Uncoded 07/06/20 09:18 SYNCOPAL FEELING PSEUDOEPHEDRINE HCL AdvReac Severe DIZZINESS, Uncoded 07/06/20 09:18 SYNCOPAL FEELING Vital Signs Vital Signs - 24 hr 07/26/20 16:00 07/26/20 20:00 07/26/20 21:29 Temperature 36.8 C 36.8 C Pulse Rate 83 78 70 Respiratory Rate 16 16 Blood Pressure 103/54 L 103/54 L Pulse Oximetry 96 94 07/26/20 21:39 07/26/20 21:40 07/27/20 00:00 Temperature 36.8 C 36.8 C Pulse Rate 80 87 92 Respiratory Rate 16 16 Blood Pressure 97/65 L 97/53 L Pulse Oximetry 96 97 07/27/20 02:00 07/27/20 04:00 07/27/20 06:00 Temperature 37.0 C 36.8 C Pulse Rate 91 88 86 Respiratory Rate 16 12 Blood Pressure 137/78 112/68 Pulse Oximetry 91 96 07/27/20 08:00 07/27/20 08:20 07/27/20 08:25 Temperature Pulse Rate 103 H Respiratory Rate Blood Pressure 109/74 80/59 L Pulse Oximetry 07/27/20 08
[2020-07-28] VITALS (15 sets, daily range): BP systolic 94–146; BP diastolic 55–89; PULSE 65–96; RESP 16–20; TEMP 36–36.8; O2SAT 92–98
[2020-07-28 05:59] LABS: Hematocrit 44.6 % (42.0-52.0); Hemoglobin 15.2 g/dL (14.0-18.0); Mean Corpuscular HGB Conc 34.1 g/dl (32-36); Mean Corpuscular Hemoglobin 31.1 pg (26-34); Mean Corpuscular Volume 91.2 fl (80-100); Mean Platelet Volume 9.8 fl (7.4-10.4); Platelet Count Result 253 k/mm3 (150-375); Red Blood Count 4.89 M/mm3 (4.6-6.20); Red Cell Distribution Width 12.8 % (11.5-14.5); White Blood Count 9.2 K/mm3 (4.5-10.0)
[2020-07-28 06:13] LABS: Anion Gap 7 mmol/L (8-16); Blood Urea Nitrogen 13 mg/dL (9-20); Calcium 8.9 mg/dL (8.4-10.2); Carbon Dioxide 33 mmol/L (22-30); Chloride 100 mmol/L (98-107); Estimated CRCL calculation 66 ml/min; Estimated Glomerular Filt Rate > 60; Glucose 120 mg/dL (75-110); Potassium 3.9 mmol/L (3.4-5.0); Sodium 140 mmol/L (137-145)
--- NOTE | 2020-07-28 07:19 | PM.PNCARD ---
Progress Note: A&P Assessment and Plan (1) Elevated troponin I level: Code(s): R79.89 - Other specified abnormal findings of blood chemistry Status: Acute Assessment and Plan: Not ACS without clinical evidence of it. It is trending down. Echo shows normal EF, mild-mod MR. Cielo [place]om[place] is abnormal with large apical defect suggestive of prior [place] or scar. 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 (2) Syncope and collapse: Code(s): R55 - Syncope and collapse Status: Acute Assessment and Plan: Probably due to orthostatic syncope with very apparent drop in BP on orthostatics (contribution from Parkinson's disease causing autonomic dysfunction?) or due to micturition syncope. On Florinef. Encourage fluid intake and to wear compression stockings. He will need a few sets ordered 30 mmHg thigh highs to be worn during the day. Stopped Propranol as this prevents HR compensation as he also has mild-mod chronotropic incompetence. May need something else for tremors. Increased Midodrine 5 mg TID prn. BP appears to be stable. May d/c home from cardiology standpoint to home or acute rehab and f/u with me in 2 weeks. 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 On low dose Amiodarone due to bradycardia and prolonged QT interval. (7) SHERLY (obstructive sleep apnea): Code(s): G47.33 - Obstructive sleep apnea (adult) (pediatric) Status: Acute (8) Dizziness on standing: Code(s): R42 - Dizziness and giddiness Status: Acute Subjective Date/time seen: 07/28/20 07:19 States he has not gotten up much yesterday to see if he was dizzy. No chest pain or sob. Exam Const: General: no acute distress; No in distress Neck: Neck: no JVD Carotids: no bruits Resp: Auscultation: clear to auscultation bilaterally, no crackles, no rales, no rhonchi and no wheezes Cardio: Rate: regular rate Rhythm: regular rhythm Heart sounds: no murmurs GI: GI Palp: Yes Soft to palpation and No Tenderness to palpation present (GI) Neuro: Speech: normal speech Extrem: Right lower extremity: no edema Left lower extremity: no edema Objective Data Vital Signs Vital Signs: Vital Signs - 24 hr 07/27/20 08:00 07/27/20 08:20 07/27/20 08:25 Temperature Pulse Rate 103 H Respiratory Rate Blood Pressure 109/74 80/59 L Pulse Oximetry 07/27/20 08:30 07/27/20 10:37 07/27/20 12:00 Temperature 98.1 F Pulse Rate 84 80 102 H Respiratory Rate 16 Blood Pressure 162/94 H Pulse Oximetry 99 07/27/20 14:00 07/27/20 16:00 07/27/20 18:00 Temperature 97.7 F 98.0 F Pulse Rate 103 H 92 82 Respiratory Rate 20 18 Blood Pressure 126/75 122/80 Pulse Oximetry 96 95 07/27/20 20:00 07/28/20 00:00 07/28/20 04:00 Temperature 98.3 F 98.3 F 98.3 F Pulse Rate 90 96 80 Respiratory Rate 20 18 20 Blood Pressure 148/75 H 146/81 H 119/78 Pulse Oximetry 95 93 92 Intake/Output Intake/Output: Intake & Output 07/25/20 07/26/20 07/27/20 07/28/20 23:59 23:59 23:59 23:59 Intake Total 1200 1270 1290 540 Output Total 619 285 1501 700 Balance 450 320 240 -160 Meds/Results Medications: Active Medications Generic Name Dose Route Start Last Admin Trade Name Freq PRN Reason Stop Dose Admin Acetaminophen 650 mg 07/19/20 20:32 Tylenol Tablet PO Q4H PRN Mild Pain (1-3) or Fever Amiodarone HCl 50 mg 07/21/20 08:00 07/27/20 08:30 Pacerone PO 50 mg DAILY@0800
[2020-07-28] MEDS: MIDODRINE HCL 2.5 MG TABLET 5 MG PO ×3 (08:23→17:34)
[2020-07-28] MEDS: PRAVASTATIN SODIUM 10 MG TABLET PO (08:24)
[2020-07-28] MEDS: TAMSULOSIN HCL 0.4 MG CAPSULE PO (08:24)
[2020-07-28] MEDS: AMIODARONE HCL 50 MG TABLET PO (08:24)
[2020-07-28] MEDS: APIXABAN 5 MG TABLET PO ×2 (08:24→21:23)
[2020-07-28] MEDS: CARBIDOPA/LEVODOPA 25/250 MG TABLET 1 TABLET PO ×2 (08:24→21:23)
[2020-07-28] MEDS: FLUDROCORTISONE ACETATE 0.1 MG TABLET PO (08:24)
--- NOTE | 2020-07-28 12:52 | PM.IMPN ---
Progress Note: A&P Assessment and Plan (1) Syncope and collapse: Code(s): R55 - Syncope and collapse Status: Acute Assessment and Plan: likely vasovagal in origin. Rule out cardiogenic syncope. Telemetry. Fall precautions. Check TSH reflex T4. Check echocardiogram. Check carotid Doppler ultrasound. check orthostatic vitals which have not been done yet. 07/21/20 12:34 likely vasovagal in origin. Rule out cardiogenic syncope. Telemetry. Fall precautions. Check TSH reflex T4. Check echocardiogram. Check carotid Doppler ultrasound. check orthostatic vitals which have not been done yet. 07/28/20 12:52 patient is 79-year-old male with history of Parkinson disease taking Sinemet and Florinef 0.1mg daily was brought to the emergency department after he fell while urinating, patient states that he was watching TV, got up to go to the bathroom and while urinating he fell, he denies any associated symptoms chest pain palpitation or dizziness, after the fall he denies any head injury but did feel weak and tired, patient was brought to the emergency depart further evaluation he was orthostatic in emergency, most likely patient symptoms stems from orthostatic hypotension due to autonomic dysfunction secondary to Parkinson disease or he had a vasovagal during urinating, EKG did not show any significant with acute injury, his tropes were elevated mild and flat, further evaluate patient had Lexiscan stress which showed the patient may have myocardial infarction however patient was seen by ethologist does not suspect acute coronary disease recommending to monitor, since patient is on Eliquis which is on hold, suspect most likely patient has 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 and he is already on Florinef, will monitor his orthostatic, may start the patient on low dose of midodrine to further evaluate his orthostatic hypotension, 07/23 patient had cardiac catheterization which was essentially normal, patient also had a complaint abdominal had a CT scan which showed a patient has significant large hiatal hernia in the stomach is in his chest, have no symptoms, patient was seen by surgery team recommended conservative managed due to his age and no complaint, in the future he may need thoracic surgery if he becomes symptomatic, on 07/24 patient was started on low-dose midodrine, will monitor patient blood pressure and syncopal, on 07/26 patient blood pressure was soft in the playback operator and had syncopal episode however it does climb up later in the afternoon, patient needs to get acclimated with midodrine, Again on 07/27 patient had a syncopal episode where fell discuss with Dr. Tong his ethologist, increased midodrine to 5mg TID form 2.5mg, patient takes proparnolol for essential tremor which was dc to help with his blood pressure however now patient tremors are getting worse, will consult neurologist further recommended. Today on 07/28 patient BP and orthostatic have improved and plan was to discharge patient home, however patient has 13 flight of stairs to get to his apartment and he worked with PT and was not able to climbs any stairs, will continue PT/OT and patient will benefit going to SNF before going home. (2) Elevated troponin I level: Code(s): R79.89 - Other specified abnormal findings of blood chemistry Status: Acute Assessment and Plan: rule out ACS. likely secondary to acute trauma. Trend troponin. telemetry. cardiology has been consulted by ER provider. 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 (5) PAF (paroxysmal atrial fibrillation): Code(s): I48.0 - Paroxysmal atrial fibrillation Status: Chronic Assessment
--- NOTE | 2020-07-28 16:42 | WPDNEUROPN ---
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 (5) PAF (paroxysmal atrial fibrillation): Code(s): I48.0 - Paroxysmal atrial fibrillation Status: Chronic (6) SHERLY (obstructive sleep apnea): Code(s): G47.33 - Obstructive sleep apnea (adult) (pediatric) Status: Acute (7) Dizziness on standing: Code(s): R42 - Dizziness and giddiness Status: Acute Additional Plan for his tremor I have started him on low-dose Requip to see whether responses rest of the management as before Review of Systems Review of Systems: All systems reviewed & are unremarkable except as noted in HPI and below Exam Const: General: comfortable and no acute distress HENMT: General nose exam: Normal nares present Mouth: Yes moist mucous membranes Eyes: General: appearance normal, both eyes and all related structures Neck: Neck: supple and no JVD Resp: Effort & Inspection: normal respiratory effort Auscultation: clear to auscultation bilaterally Cardio: Rate: regular rate Rhythm: regular rhythm GI: Auscultation: normal bowel sounds Skin: General skin exam: normal color and no rashes or lesions noted Neuro: Other: the patient is awake alert well oriented has evidence of the Parkinson's disease with increased tremors without any lateralizing deficit Extrem: General: normal to inspection Psych: Mental Status: mental status grossly normal Objective Data Vital Signs Vital Signs: Vital Signs - 24 hr 07/27/20 18:00 07/27/20 20:00 07/28/20 00:00 Temperature 36.7 C 36.8 C 36.8 C Pulse Rate 82 90 96 Respiratory Rate 18 20 18 Blood Pressure 122/80 148/75 H 146/81 H Pulse Oximetry 95 95 93 07/28/20 04:00 07/28/20 07:36 07/28/20 08:00 Temperature 36.8 C Pulse Rate 80 72 Respiratory Rate 20 Blood Pressure 119/78 95/55 L Pulse Oximetry 92 10/03/20 08:24 07/28/20 09:50 07/28/20 09:55 Temperature 36.0 C L Pulse Rate 65 93 Respiratory Rate 18 Blood Pressure 146/89 H 94/72 L Pulse Oximetry 97 07/28/20 10:00 07/28/20 12:00 07/28/20 14:00 Temperature 36.2 C L Pulse Rate 93 89 Respiratory Rate 20 Blood Pressure 106/83 108/75 Pulse Oximetry 97 Intake/Output Intake/Output: Intake & Output 07/25/20 07/26/20 07/27/20 07/28/20 23:59 23:59 23:59 23:59 Intake Total 1200 1270 1290 1960 Output Total 277 086 9247 975 Balance 450 320 240 985 Meds/Results Medications: Active Medications Generic Name Dose Route Start Last Admin Trade Name Freq PRN Reason Stop Dose Admin Acetaminophen 650 mg 07/19/20 20:32 Tylenol Tablet PO Q4H PRN Mild Pain (1-3) or Fever Amiodarone HCl 50 mg 07/21/20 08:00 07/28/20 08:24 Pacerone PO 50 mg DAILY@0800 MOOK Administration Apixaban 5 mg 07/24/20 09:00 07/28/20 08:24 Eliquis PO 5 mg Q12HR MOOK Administration Carbidopa/Levodopa 1 tablet 07/20/20 21:00 07/28/20 08:24 Sinemet 25/250 Mg PO 1 tablet Q12HR MOOK Administration Fludrocortisone Acetate 0.1 mg 07/21/20 09:00 07/28/20 08:24 Florinef PO 0.1 mg DAILY MOOK Administration Midodrine 5 mg 07/27/20 13:00 07/28/20 12:20 Proamatine PO 5 mg TID MOOK Administration Ondansetron HCl 4 mg 07/19/20 20:32 07/23/20 10:01 Zofran Inj IV PUSH 4 mg Q4H PRN Administration Nausea Pravastatin Sodium 10 mg 07/22/20 09:00 07/28/20 08:24 Pravastatin Sodium PO 10 mg QAM MOOK Administration Tamsulosin HCl 0.4 mg 07/21/20 09:00 07/28/20 08:24 Flomax PO 0.4 mg DAILY MOOK Administration Radiology Results:
[2020-07-28] MEDS: rOPINIRole HCL 0.125 MG TABLET PO (21:23)
[2020-07-29] VITALS (11 sets, daily range): BP systolic 75–152; BP diastolic 52–88; PULSE 63–102; RESP 16–18; TEMP 36–36.8; O2SAT 95–99
[2020-07-29] MEDS: rOPINIRole HCL 0.125 MG TABLET PO ×2 (05:11→12:27)
[2020-07-29 05:23] LABS: Hemoglobin 15.1 g/dL (14.0-18.0); Mean Corpuscular HGB Conc 34.3 g/dl (32-36); Mean Corpuscular Hemoglobin 31.1 pg (26-34); Mean Corpuscular Volume 90.7 fl (80-100); Mean Platelet Volume 9.9 fl (7.4-10.4); Platelet Count Result 259 k/mm3 (150-375); Red Blood Count 4.85 M/mm3 (4.6-6.20); Red Cell Distribution Width 12.8 % (11.5-14.5); White Blood Count 8.9 K/mm3 (4.5-10.0)
[2020-07-29 05:43] LABS: Anion Gap 4 mmol/L (8-16); Blood Urea Nitrogen 13 mg/dL (9-20); Calcium 9.2 mg/dL (8.4-10.2); Carbon Dioxide 34 mmol/L (22-30); Chloride 100 mmol/L (98-107); Estimated CRCL calculation 66 ml/min; Estimated Glomerular Filt Rate > 60; Glucose 125 mg/dL (75-110); Potassium 4.5 mmol/L (3.4-5.0); Sodium 138 mmol/L (137-145)
[2020-07-29] MEDS: AMIODARONE HCL 50 MG TABLET PO (08:08)
[2020-07-29] MEDS: FLUDROCORTISONE ACETATE 0.1 MG TABLET PO (08:08)
[2020-07-29] MEDS: PRAVASTATIN SODIUM 10 MG TABLET PO (08:08)
[2020-07-29] MEDS: MIDODRINE HCL 2.5 MG TABLET 5 MG PO ×2 (08:08→12:27)
[2020-07-29] MEDS: APIXABAN 5 MG TABLET PO (08:08)
[2020-07-29] MEDS: CARBIDOPA/LEVODOPA 25/250 MG TABLET 1 TABLET PO (08:08)
[2020-07-29] MEDS: TAMSULOSIN HCL 0.4 MG CAPSULE PO (08:09)
--- NOTE | 2020-07-29 11:06 | PM.DS ---
DS: Admitting Diagnosis Admitting Diagnosis Admitting Diagnosis: Passed out and fell DS: Discharge Diagnosis Discharge Diagnosis (1) Syncope and collapse: Code(s): R55 - Syncope and collapse Status: Acute Assessment and Plan: likely vasovagal in origin. Rule out cardiogenic syncope. Telemetry. Fall precautions. Check TSH reflex T4. Check echocardiogram. Check carotid Doppler ultrasound. check orthostatic vitals which have not been done yet. 07/21/20 12:34 likely vasovagal in origin. Rule out cardiogenic syncope. Telemetry. Fall precautions. Check TSH reflex T4. Check echocardiogram. Check carotid Doppler ultrasound. check orthostatic vitals which have not been done yet. 07/28/20 12:52 patient is 79-year-old male with history of Parkinson disease taking Sinemet and Florinef 0.1mg daily was brought to the emergency department after he fell while urinating, patient states that he was watching TV, got up to go to the bathroom and while urinating he fell, he denies any associated symptoms chest pain palpitation or dizziness, after the fall he denies any head injury but did feel weak and tired, patient was brought to the emergency depart further evaluation he was orthostatic in emergency, most likely patient symptoms stems from orthostatic hypotension due to autonomic dysfunction secondary to Parkinson disease or he had a vasovagal during urinating, EKG did not show any significant with acute injury, his tropes were elevated mild and flat, further evaluate patient had Lexiscan stress which showed the patient may have myocardial infarction however patient was seen by digital sales planner does not suspect acute coronary disease recommending to monitor, since patient is on Eliquis which is on hold, suspect most likely patient has 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 and he is already on Florinef, will monitor his orthostatic, may start the patient on low dose of midodrine to further evaluate his orthostatic hypotension, 07/23 patient had cardiac catheterization which was essentially normal, patient also had a complaint abdominal had a CT scan which showed a patient has significant large hiatal hernia in the stomach is in his chest, have no symptoms, patient was seen by surgery team recommended conservative managed due to his age and no complaint, in the future he may need thoracic surgery if he becomes symptomatic, on 07/24 patient was started on low-dose midodrine, will monitor patient blood pressure and syncopal, on 10/1 patient blood pressure was 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 Tong his digital sales planner, increased midodrine to 5mg TID form 2.5mg, patient takes proparnolol for essential tremor which was dc to help with his blood pressure however now patient tremors are getting worse, will consult neurologist further recommended. Today on 07/28 patient BP and orthostatic have improved and plan was to discharge patient home, however patient has 13 flight of stairs to get to his apartment and he worked with PT and was not able to climbs any stairs, will continue PT/OT and patient will benefit going to SNF before going home. (2) Elevated troponin I level: Code(s): R79.89 - Other specified abnormal findings of blood chemistry Status: Acute Assessment and Plan: rule out ACS. likely secondary to acute trauma. Trend troponin. telemetry. cardiology has been consulted by ER provider. 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 (5) PAF (paroxysmal atrial fibrillation)
== END 2020-07-29 12:51 | disposition home health service (06) | DRG 287 ==
LOC: ANHED 21:00 → ANHIMU 21:04 → ANHCPC 07-23 11:52 → ANH2MED 07-26 14:47 → ANHCPC 07-31 11:57 → ANHIMU 07-31 11:57
PROVIDERS: Internal Medicine Cardiovascular Disease; Specialist; Admitting Provider Family Medicine; Emergency Provider Emergency Medicine; PCP Family Medicine Adolescent Medicine; Visit Provider Family Medicine
PROC: 4A023N7 Measurement of Cardiac Sampling and Pressure, Left Heart, Percutaneous Approach (ICD-10-PCS; CPT 93452; principal; 2020-07-23 10:00)
PROC: 4A023N7 Measurement of Cardiac Sampling and Pressure, Left Heart, Percutaneous Approach (ICD-10-PCS; 2020-07-23 10:00)
DX: R55 Syncope and collapse (principal); I45.3 Trifascicular block; I45.89 Other specified conduction disorders; Q24.5 Malformation of coronary vessels; G20 Parkinson's disease; K44.9 Diaphragmatic hernia without obstruction or gangrene; I48.0 Paroxysmal atrial fibrillation; R79.89 Other specified abnormal findings of blood chemistry; R42 Dizziness and giddiness; R94.39 Abnormal result of other cardiovascular function study; R06.09 Other forms of dyspnea; G47.33 Obstructive sleep apnea (adult) (pediatric); J45.909 Unspecified asthma, uncomplicated; W19.XXXA Unspecified fall, initial encounter; Y93.E8 Activity, other personal hygiene; Z23 Encounter for immunization; Z79.01 Long term (current) use of anticoagulants; Z79.899 Other long term (current) drug therapy
CPT/HCPCS: 36415; 70450; 71046; 74176; 78452; 80048; 80061; 81001; 83735; 83880; 84443; 84484; 85025; 85027; 85380; 85610; 85730; 90471; 90653; 93005; 93017; 93458; 93880; 96360; 96374; 97110; 97116; 97161; 97165; 97530; 97535; 99285; A9270; A9502; C1760; C1887; C1894; C8929; G0008; G0269; G0378; J1644; J1650; J2250; J2405; J2785; J3010; J7030; J7040; Q9957

== ENCOUNTER 2020-11-23 09:08 | Inpatient (IN) | payer MEDICARE, SELFPAY ==
[2020-11-23] VITALS (8 sets, daily range): BP systolic 84–151; BP diastolic 64–87; PULSE 66–83; RESP 16–20; TEMP 36.3–36.9; O2SAT 94–98; BMI 24.3
--- NOTE | ~2020-11-23 | CT_ITS ---
EXAMINATION: CTA brain carotid EXAM DATE: 11/23/2020 13:01 INDICATION: Syncope. 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 TECHNIQUE: Spiral CTA of the carotid arteries was performed with intravenous injection 100 cc of Omn ipaque 350. Axial, coronal, sagittal reformatted images reviewed. Additional reformatted images crea fili on dedicated 3-D workstation. NASCET comparable standard used to assess the degree of arterial s tenosis. Spiral CT angiogram cerebral arteries performed with the same intravenous injection of cont rast. Source images of the brain CTA transferred to dedicated workstation for 3-D rotational image cr eation. Coronal, sagittal maximum intensity pixel images also reviewed. The dose-length product (DL P) for this examination was 1165.30 mGy-cm. The exposure was tailored according to patient size, an d iterative reconstruction (ASIR) was used as additional dose reduction technique. Correlation is mad e to noncontrast head CT same date. FINDINGS: There is mild bilateral carotid bulb plaque, 0% stenosis bilaterally. The extracranial inte rnal carotid arteries segments are tortuous below the skull base. There is mild bilateral carotid ect shagufta of the parasellar portions without focal aneurysm, mild diffuse dilation which likely accounts f or the abnormal CT finding. No parasellar mass or focal aneurysm. Mild right carotid siphon arterial sclerosis without stenosis. The vertebral arteries are codominant. There is left posterior communicat ing artery dominant posterior cerebral artery. Right There is no carotid or vertebral basilar fernanda rial dissection or fibromuscular dysplasia. There is symmetric cerebral artery arborization. The sagi ttal, transverse and sigmoid sinuses enhance normally, no venous sinus thrombosis. Internal cerebral veins also enhance normally. Incidental note made of small scattered regions of right upper lobe peripheral groundglass airspace d isease which is nonspecific, but consistent with COVID pneumonia. Sinus mucoperiosteal disease. IMPRESSION: 1. No carotid stenosis, focal aneurysm or parasellar mass. 2. COVID pneumonia. Reviewed, dictated and finalized at location A. HOUSE LOADER
--- NOTE | ~2020-11-23 | CT_ITS ---
EXAMINATION: CT brain wo con EXAM DATE: 11/23/2020 10:46 INDICATION: Syncope, shortness of breath. TECHNIQUE: Spiral CT of the head was performed without contrast. Axial, coronal and sagittal images were reviewed. The dose-length product (DLP) for this examination was 681.00 mGy-cm. The exposure w as tailored according to patient size, and iterative reconstruction (ASIR) was used as additional dos e reduction technique. Comparison is made to prior examination from 07/19/2020. FINDINGS: There is possible small right parasellar aneurysm or mass such as meningioma There is no ac port gamble intraparenchymal hemorrhage. No evidence of intraparenchymal brain mass lesion. No evidence of acute infarction. Please note that initial head CT has limited sensitivity for small or acute infarc tions. There is moderate periventricular and subcortical hypodensity, nonspecific but probably relate d to small vessel ischemic disease. There is mild to moderate prominence of the sulci and ventricle s related to cerebral atrophy. There is intracranial carotid arteriosclerosis. There are no extra- axial collections. There is no mass effect or midline shift. Patient has had bilateral ocular lens surgery. Soft tissue is unremarkable. There is moderate to severe bilateral ethmoid mucoperiosteal thickening, mild to moderate sphenoid and maxillary sinus mucoperiosteal thickening. The mastoid air cells are well aerated. IMPRESSION: 1. 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 Given history, CTA carotid cou ld also be considered (brain and carotid). 2. Chronic age related findings. 3. Moderate to severe ethmoid mucoperiosteal thickening. Reviewed, dictated and finalized at location A. ER HEAD IMPRESSION: 1. 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 Given hi story, CTA carotid could also be considered (brain and carotid). 2. Chronic age related findings. 3. Moderate to severe ethmoid mucoperiosteal thickening.
--- NOTE | ~2020-11-23 | XR_ITS ---
EXAMINATION: XR chest 1V portable DATE: 11/23/2020 10:02 INDICATION: Shortness of breath. COVID-19 pneumonia. TECHNIQUE: A single frontal view of the chest was obtained. COMPARISON: Chest 2 views 07/19/2020, CT abdomen and pelvis 07/23/2020 FINDINGS: A calcified left lung nodule is consistent with old granulomatous disease. There are patchy airspace opacities in right mid and upper lung zones. No pleural effusion or pneumothorax. The heart size is normal. There is a large hiatal hernia. IMPRESSION: 1. Patchy airspace opacities in right mid and upper lung zones, consistent with pneumonia. 2. Large hiatal hernia. Reviewed, dictated and finalized at location A. RAL WORKER
--- NOTE | 2020-11-23 09:25 | ECG_ITS ---
Measurements Intervals [place] Rate: 82 P: -46 ND: 222 QRS: -80 QRSD: 177 T: 32 QT: 440 QTc: 516 Interpretive Statements SINUS RHYTHM WITH FIRST DEGREE AV BLOCK RIGHT BUNDLE BRANCH BLOCK LEFT ANTERIOR FASCICULAR BLOCK BASELINE ARTIFACT- I, II, III, AVR, AVL, AVF, V1-V6 ABNORMAL ECG Electronically Signed On 11-23-2020 11:29:18 MILLED LUMBER GRADER by Medardo Tong D.O.
[2020-11-23 09:36] LABS: Basophils Percent Auto 0.3 % (0.2-1.2); Eosinophils Percent Auto 0.1 % (0-4.4); Hematocrit 43.8 % (42.0-52.0); Immature Granulocyte Absolute 0.02 K/mm3 (0.00-0.031); Immature Granulocyte Percent A 0.3 % (0-0.5); Lymphocytes Absolute Auto 1.15 K/mm3 (0.9-3.2); Lymphocytes Percent Auto 15.9 % (18.3-44.2); Mean Corpuscular HGB Conc 34.2 g/dl (32-36); Mean Corpuscular Hemoglobin 30.5 pg (26-34); Monocytes Percent Auto 14.4 % (2.6-8.5); Platelet Count Result 214 k/mm3 (150-375); Red Blood Count 4.92 M/mm3 (4.6-6.20); Red Cell Distribution Width 12.8 % (11.5-14.5); White Blood Count 7.2 K/mm3 (4.5-10.0)
[2020-11-23 09:58] LABS: Anion Gap 4 mmol/L (8-16); Blood Urea Nitrogen 14 mg/dL (9-20); Calcium 8.6 mg/dL (8.4-10.2); Carbon Dioxide 29 mmol/L (22-30); Chloride 99 mmol/L (98-107); Estimated CRCL calculation 65 ml/min; Estimated Glomerular Filt Rate > 60; Glucose 110 mg/dL (75-110); Potassium 4.3 mmol/L (3.4-5.0); Sodium 132 mmol/L (137-145)
[2020-11-23 10:57] LABS: Alveolar/Arterial O2 Gradient 41.4 mmHg; Base Excess ABG 0.2 mEq/l (+/-2.0); Carboxyhemoglobin 0.3 % THb (0-2.0); Fractional Inspired Oxygen 21 %; Methemoglobin ABG 0.3 %THb (0-1.5); Oxygen Content ABG 20.4 %vol (16.0-22.0); Oxygen Saturation ABG 95.2 % (95.0-100.0); Oxyhemoglobin 94.1 % THb (90.0-100.0); PCO2 ABG 32.2 mmHg (35.0-45.0); PO2 ABG 69.8 mmHg (80.0-100.0); PO2 FiO2 Ratio Arterial Blood 3.32 %; Reduced Hemoglobin 5.3 %THb (0-5.0); Total Hemoglobin 15.4 g/dL (12.0-18.0); pH ABG 7.471 (7.350-7.450)
[2020-11-23 10:58] LABS: Device ROOM AIR; Modified Allen's Test Pass; Site Drawn LEFT RADIAL
[2020-11-23] MEDS: LACTATED RINGERS 1,000 ML 999 ML IV CONT (11:17)
[2020-11-23 11:36] LABS: Lactic Acid Reflex 1.5 mmol/L (0.7-2.1)
[2020-11-23 11:38] LABS: INR 1.9
[2020-11-23 11:40] LABS: CRP 3.5 mg/dL (<1.0); Magnesium 2.2 mg/dL (1.6-2.3)
[2020-11-23 11:42] LABS: D Dimer 0.27 ug/mL (<0.48)
[2020-11-23 11:49] LABS: Troponin I < 0.012 ng/mL (0.000-0.034)
--- NOTE | 2020-11-23 12:36 | ED.GENADULT ---
HPI - General Adult General Chief complaint: Shortness of Breath/Dyspnea Stated complaint: SOB, weakness Time Seen by Provider: 11/23/20 09:54 History of Present Illness HPI narrative: This patient is a 80 year old male who presents for evaluation weakness and syncope. He states he was diagnosed with COVID on Thursday. He states he developed symptoms on the same day so he was tested due to a family member dying recently of covid. He reports cough and shortness of breath. He states his shortness of breath is chronic. He also reports that he passed out going to the bathroom last night and he lives alone. He denies chest pain, vomiting. He denies palpitations. Related Data Home Medications Medication Instructions Recorded Confirmed Eliquis 5 mg PO BID 07/19/20 11/23/20 fludrocortisone 0.1 mg PO DAILY 07/19/20 11/23/20 tamsulosin 0.4 mg PO DAILY 07/19/20 11/23/20 primidone 50 mg PO HS 11/23/20 11/23/20 Allergies Allergy/AdvReac Type Severity Reaction Status Date / Time doxylamine AdvReac Severe DIZZINESS, Verified 11/23/20 16:43 SYNCOPAL FEELING acetaminophen [From Tylenol] AdvReac Dizziness Verified 11/23/20 16:43 DEXTROMETHORPHAN HBR AdvReac Severe DIZZINESS, Uncoded 11/23/20 16:44 SYNCOPAL FEELING PSEUDOEPHEDRINE HCL AdvReac Severe DIZZINESS, Uncoded 11/23/20 16:44 SYNCOPAL FEELING Review of Systems Review of Systems: All systems reviewed & are unremarkable except as noted in HPI and below Constitutional: Constitutional: Denies chills, Reports fatigue, Denies fever(s) and Reports weakness Eyes: Eyes: Denies change in vision ENT: Reports dizziness Cardiovascular: Cardiovascular: Denies chest pain Respiratory: Respiratory: Reports cough and Reports dyspnea [facility] Past Medical History Medical History (Updated 11/23/20 @ 19:27 by Myriam Shaikh MD) Asthma Chronotropic incompetence Dizziness on standing LEE (dyspnea on exertion) Idiopathic Parkinson's disease SHERLY (obstructive sleep apnea) PAF (paroxysmal atrial fibrillation) Trifascicular block Surgical History Surgical History History of appendectomy Family History Family History (Updated 11/23/20 @ 15:43 by Ivonne Rocha RN) Father Silicosis Mother Heart disease Sibling Heart valve disease COVID-19 Social History Social History Smoking status: Never smoker Second hand tobacco smoke exposure: No Alcohol intake: current Drinks per week: 1 Substance use: never Substance use type: does not use Gender identity (if verbalized by the patient): Male Spiritual care concerns: No Exam Narrative: Exam Narrative: GENERAL: well-nourished, and in no acute distress. HEAD: Normocephalic, atraumatic EYES: PERRLA and EOMI, conjunctiva clear without discharge EARS: TM's clear bilaterally without erythema or dullness NOSE: Nares clear, no rhinorrhea or epistaxis THROAT:Mucous membranes moist, Oropharynx normal without erythema, exudate, peritonsillar swelling or fluctuance NECK: Supple, without lymphadenopathy or mass RESPIRATORY: No respiratory distress, Airway patent, Respirations non-labored, Clear to auscultation without rales, rhonchi or wheeze HEART: Regular rate and rhythm. No murmur heard. Normal peripheral pulses. ABDOMEN: Soft, nontender, nondistended, normal active bowel sounds. No masses. No rebound or guarding, No organomegaly. EXTREMITIES: No edema, normal strength with full range of motion. SKIN: Warm, dry, normal color without rash NEURO: Alert and oriented x3. CN 2-12 grossly intact. No focal deficits. PSYCH: Normal mood and affect. Course Consultations Consultation #1: I Discussed case with Rody zavaleta. she accepts patient to [facility] for syncope with covid pneumonia Date: 11/23/20 Time: 13:53 Vital Signs Vital signs: Vital Signs Temperature 98.4 F
[2020-11-23 12:43] LABS: Add Urine Microscopic? NO; Appearance Urine Clear (Clear); Bacteria Urine Trace /hpf; Bilirubin Urine Negative (Negative); Blood Urine Negative (Negative); Color Urine Yellow (Yellow); Glucose Urine UA Negative (Negative); Ketones Urine Negative (Negative); Leukocyte Esterase Ur Negative LEU/UL (Negative); Mucus Urine Rare /lpf; Nitrate Urine Negative (Negative); Protein Urine Negative (Negative); RBC Urine 0-2 /hpf (0-2); Squamous Epithelial Cell Urine Rare /hpf (Few); Urobilinogen Urine Negative mg/dL (<2.0); WBC Urine 0-3 /hpf
[2020-11-23] MEDS: SODIUM CHLORIDE 0.9% IV 1,000 ML 999 ML IV CONT (13:09)
--- NOTE | 2020-11-23 15:15 | PC.NURSE ---
This patient, Higinio Agosto Jr., was admitted to [facility] Surg Room 316-01. Patient/family oriented to hospital policies and general routines including ID bracelet, bed and alarms, visiting hours, pain management, procedures, bathroom and other care routines, personal items, smoking policy, room service/diet, and visiting hour. Report received from Kirsten SHARMA Patient/Family are encouraged to report perceived risks to care and to ask questions if they do not understand what they are told or what they should do.
[2020-11-23] MEDS: SODIUM CHLORIDE 0.9% IV 1,000 ML 125 ML IV CONT (17:11)
--- NOTE | 2020-11-23 19:59 | PM.IMHP ---
H&P: HPI History of Present Illness Date/Time: 11/23/20 19:59 Chief Complaint: Syncope and collapse Narrative: Higinio Agosto Jr. is a 80 year old male who has a history of lyn axonal atrial fibrillation. He is anticoagulated on Eliquis as Parkinson's syndrome. The patient has had several episodes where he has syncopal episode. Typically happens when the patient is urinating. The patient had a syncopal episode on 07/19/2020 where his spine in the hospital and had a very thorough workup. Appears as patient has syncopal episodes while urinating. The patient had a Lexiscan at that time and was found to be positive. He did have a cardiac catheterization which she only had minimal plaquing test and had no stent placed at that time. He does follow with cardiology. However the patient states now he comes in with COVID-19. [address] did started out with diarrhea a few days ago now and he stated they she he CT at test on room this past Thursday which looks like it will be the . The patient is not any more short of breath than normal. But he has been having diarrhea. The brother that lived with him had tested positive for COVID and recently . Now the patient is living home alone and does not feel like he can take care of himself. The patient came in today because he stated that he passed out tonight when everyone to the bathroom. He stated he woke up on the floor. He has an 0 how long he was out. Paroxysmal atrial fibrillation. The patient had a CT of his head and neck and it was read as no carotid stenosis focal aneurysm are parasellar mass. COVID pneumonia. The patient is currently on room air. The patient was found to have orthostasis and is sodium levels 132. Fluids were started. The patient stated that he is eating and drinking well. The patient was started on IV fluids. He was admitted to inpatient status on the date of service of 11/23/2020. Review of Systems Review of Systems: All systems reviewed & are unremarkable except as noted in HPI and below Constitutional: Constitutional: Reports as per HPI and Reports no additional constitutional complaints Eyes: Eyes: Reports as per HPI and Reports no additional eye complaints ENT: Reports system reviewed and no additional complaints, except as documented and Reports Normal hearing present Cardiovascular: Cardiovascular: Reports no additional cardiovascular complaints Respiratory: Respiratory: Reports no additional respiratory complaints and Reports no additional respiratory complaints Gastrointestinal: Gastrointestinal: Reports as per HPI and Reports no additional gastrointestinal complaints Musculoskeletal: Musculoskeletal: Reports no additional musculoskeletal complaints Integumentary/Breasts: Skin/Breast: Reports system reviewed and no additional complaints, except as docu and Reports as per HPI Neurologic: Reports system reviewed and no additional complaints, except as documented, Reports as per HPI and Reports Normal hearing present Psychiatric: Psychiatric: Reports no additional psychiatric complaints and Reports as per HPI Endocrine: Endocrine: Reports no additional endocrine complaints Hematologic/Lymphatic: Hematologic/Lymphatic: Reports no additional hematologic/lymphatic complaints Allergic/Immunologic: Allergic/Immunologic: Reports no additional allergic/immunologic complaints [facility] Past Medical History Medical History Asthma Chronotropic incompetence Dizziness on standing LEE (dyspnea on exertion) Idiopathic Parkinson's disease SHERLY (obstructive sleep apnea) PAF (paroxysmal atrial fibrillation) Trifascicular block Surgical History Surgical History History of appendectomy Family History Family History Father Silicosis Mother Heart disease Sibling Heart valve disease [place]
[2020-11-23] MEDS: PRIMIDONE 50 MG TABLET PO (21:18)
[2020-11-23] MEDS: APIXABAN 5 MG TABLET PO (21:18)
[2020-11-23] MEDS: rOPINIRole HCL 0.125 MG TABLET PO (23:28)
[2020-11-24] VITALS (11 sets, daily range): BP systolic 95–158; BP diastolic 60–80; PULSE 62–88; RESP 20–22; TEMP 36.3–37.3; O2SAT 93–97
[2020-11-24] MEDS: SODIUM CHLORIDE 0.9% IV 1,000 ML 75 ML IV CONT ×2 (01:34→09:34)
[2020-11-24 06:07] LABS: Basophils Percent Auto 0.1 % (0.2-1.2); Eosinophils Percent Auto 0.3 % (0-4.4); Hematocrit 44.3 % (42.0-52.0); Hemoglobin 14.8 g/dL (14.0-18.0); Immature Granulocyte Absolute 0.03 K/mm3 (0.00-0.031); Immature Granulocyte Percent A 0.4 % (0-0.5); Lymphocytes Absolute Auto 1.57 K/mm3 (0.9-3.2); Lymphocytes Percent Auto 23.2 % (18.3-44.2); Mean Corpuscular HGB Conc 33.4 g/dl (32-36); Mean Corpuscular Hemoglobin 30.3 pg (26-34); Mean Corpuscular Volume 90.8 fl (80-100); Monocytes Absolute Auto 0.7 K/mm3 (0.1-0.6); Monocytes Percent Auto 10.2 % (2.6-8.5); Neutrophils Absolute Auto 4.4 K/mm3 (1.3-6.7); Neutrophils Percent Auto 65.8 % (45.5-73.1); Platelet Count Result 215 k/mm3 (150-375); Red Blood Count 4.88 M/mm3 (4.6-6.20); Red Cell Distribution Width 12.9 % (11.5-14.5); White Blood Count 6.8 K/mm3 (4.5-10.0)
[2020-11-24 06:20] LABS: Lactic Acid Reflex 1.3 mmol/L (0.7-2.1)
[2020-11-24 06:30] LABS: Alanine Aminotransferase 28 U/L (4-50); Albumin Level 3.9 g/dL (3.5-5.1); Alkaline Phosphatase 57 U/L (38-126); Anion Gap 3 mmol/L (8-16); Aspartate Amino Transferase 38 U/L (17-59); Bilirubin,Total 0.7 mg/dL (0.2-1.3); Blood Urea Nitrogen 9 mg/dL (9-20); CRP 5.2 mg/dL (<1.0); Calcium 8.3 mg/dL (8.4-10.2); Carbon Dioxide 31 mmol/L (22-30); Chloride 101 mmol/L (98-107); Estimated CRCL calculation 82 ml/min; Estimated Glomerular Filt Rate > 60; Glucose 92 mg/dL (75-110); Lactate Dehydrogenase 494 U/L (313-618); Lipase 121 U/L (23-300); Magnesium 2.1 mg/dL (1.6-2.3); Potassium 3.6 mmol/L (3.4-5.0); Sodium 135 mmol/L (137-145)
[2020-11-24] MEDS: AMIODARONE HCL 50 MG TABLET PO (08:40)
[2020-11-24] MEDS: APIXABAN 5 MG TABLET PO ×2 (08:41→17:08)
[2020-11-24] MEDS: MIDODRINE HCL 2.5 MG TABLET 5 MG PO ×3 (08:41→17:08)
[2020-11-24] MEDS: FLUDROCORTISONE ACETATE 0.1 MG TABLET PO (08:41)
[2020-11-24] MEDS: TAMSULOSIN HCL 0.4 MG CAPSULE PO (08:41)
[2020-11-24] MEDS: rOPINIRole HCL 0.125 MG TABLET PO ×3 (09:17→17:08)
--- NOTE | 2020-11-24 13:25 | PM.IMPN ---
Progress Note: A&P Assessment and Plan (1) Pneumonia due to COVID-19 virus: Code(s): U07.1 - COVID-19; J12.82 - Pneumonia due to coronavirus disease 2018 Status: Acute Assessment and Plan: [id number] diagnosed on 11/21. Symptoms started on 11/19 with diarrhea; lost sense of taste on 11/20 which returned today. CXR shows patchy airspace opacities in right mid and upper lung zones, consistent with pneumonia. CTA head/neck shows incidental findings suggestive of COVID pneumonia as well. On RA at time of visit. Maintaining adequate O2 sats on RA. Does not meet criteria for decadron or remdesivir Continue supportive care Supplemental O2 as needed Will need f/u with PCP (2) Micturition syncope: Code(s): R55 - Syncope and collapse Status: Acute Assessment and Plan: History of this in the past, as well as orthostatic hypotension. Still orthostatic, but minimally dizzy with standing. He has been given IV fluids since admission. On Florinef and Midodrine at home. ROMMEL hose have been given. He has been instructed to sit when urinating. He had extensive work up for orthostatic hypotension on previous admission. He states he feels uncomfortable going home alone. CC following and will offer additional resources such as life alert and see if he will be willing to self pay for rehab facility. Will await disposition rec from CC. It is felt rehab will likely be safest, however patient does not qualify for rehab at this time and may need to self pay per CC. Will do HH therapy if unable to go to facility He will need follow up with Cardiology and Neurology Monitor for now ROMMEL Hose thigh highs Hopefully discharge today or tomorrow D/c IV fluids (3) Idiopathic Parkinson's disease: Code(s): G20 - Parkinson's disease Status: Chronic Assessment and Plan: Follows Dr. Marrero/Dr. Martinez Continue home medications (4) PAF (paroxysmal atrial fibrillation): Code(s): I48.0 - Paroxysmal atrial fibrillation Status: Chronic Assessment and Plan: The patient appears to be in sinus rhythm, although possible paroxysmal a fib on tele? a lot of artifact is note Continue his home Eliquis although if he has continued episodes of syncope, this will need to be readdressed Continue amiodarone F/u with Cardiology as outpatient (5) SHERLY (obstructive sleep apnea): Code(s): G47.33 - Obstructive sleep apnea (adult) (pediatric) Status: Acute Assessment and Plan: Reportedly does not use CPAP Subjective Date/time seen: 11/24/20 13:25 Interval history: Patient is a 80 yo M with history of orthostatic hypotension, recurrent episodes of micturition syncope, PAF (on amiodarone, Elquis), and parkinson's disease who is seen in follow up for SOB and recent COVID pneumonia diagnosis. Patient states he feels okay today. Notes his SOB is only slightly worse than his chronic SOB, particularly with LEE. He has a mild dry cough. He typically sit when urinating but notes he had an episode of syncope the night prior to arrival when standing while urinating. He has frequent urination, as well. He has no other complaints at the moment. He reports that his sense of taste has returned today. Notes only getting slightly dizzy when standing during orthostatic BPs today. Generally feels okay. He does tell me he does not feel comfortable going home in case he has another episode. He also has limited resources at home as his brother recently from COVID. Denies f/c/s, headaches, cp/palpitations, n/v/d/c, abd pain, changes in BMs, hematuria, cloudy urine, calf pain Review of Systems Review of Systems: All systems reviewed & are unremarkable except as noted in HPI and below Exam Narrative: Exam Narrative: General: Patien
[2020-11-24] MEDS: PRIMIDONE 50 MG TABLET PO (20:50)
[2020-11-24] MEDS: guaiFENesin 12 HR 600 MG TABCR PO (20:50)
[2020-11-25] VITALS (7 sets, daily range): BP systolic 95–161; BP diastolic 58–79; PULSE 62–74; RESP 16–20; TEMP 36.3–36.7; O2SAT 95–98
[2020-11-25 06:44] LABS: Basophils Percent Auto 0.6 % (0.2-1.2); Eosinophils Percent Auto 0.6 % (0-4.4); Hematocrit 39.4 % (42.0-52.0); Hemoglobin 13.3 g/dL (14.0-18.0); Immature Granulocyte Absolute 0.01 K/mm3 (0.00-0.031); Immature Granulocyte Percent A 0.2 % (0-0.5); Lymphocytes Absolute Auto 1.33 K/mm3 (0.9-3.2); Mean Corpuscular HGB Conc 33.8 g/dl (32-36); Mean Corpuscular Hemoglobin 29.7 pg (26-34); Mean Corpuscular Volume 87.9 fl (80-100); Mean Platelet Volume 9.4 fl (7.4-10.4); Monocytes Absolute Auto 0.7 K/mm3 (0.1-0.6); Monocytes Percent Auto 12.6 % (2.6-8.5); Neutrophils Absolute Auto 3.3 K/mm3 (1.3-6.7); Platelet Count Result 200 k/mm3 (150-375); Red Blood Count 4.48 M/mm3 (4.6-6.20); Red Cell Distribution Width 12.4 % (11.5-14.5); White Blood Count 5.3 K/mm3 (4.5-10.0)
[2020-11-25 07:21] LABS: Alanine Aminotransferase 28 U/L (4-50); Albumin Level 3.4 g/dL (3.5-5.1); Alkaline Phosphatase 49 U/L (38-126); Anion Gap 1 mmol/L (8-16); Aspartate Amino Transferase 36 U/L (17-59); Bilirubin,Total 0.7 mg/dL (0.2-1.3); Blood Urea Nitrogen 10 mg/dL (9-20); Calcium 8.3 mg/dL (8.4-10.2); Carbon Dioxide 29 mmol/L (22-30); Chloride 102 mmol/L (98-107); Estimated CRCL calculation 82 ml/min; Estimated Glomerular Filt Rate > 60; Glucose 91 mg/dL (75-110); Magnesium 2.1 mg/dL (1.6-2.3); Potassium 3.8 mmol/L (3.4-5.0); Sodium 132 mmol/L (137-145)
[2020-11-25] MEDS: rOPINIRole HCL 0.125 MG TABLET PO ×3 (08:35→16:47)
[2020-11-25] MEDS: APIXABAN 5 MG TABLET PO ×2 (08:35→16:47)
[2020-11-25] MEDS: FLUDROCORTISONE ACETATE 0.1 MG TABLET PO (08:36)
[2020-11-25] MEDS: guaiFENesin 12 HR 600 MG TABCR PO (08:36)
[2020-11-25] MEDS: CHOLECALCIFEROL 1,000 UNITS TABLET 1000 UNITS PO (08:36)
[2020-11-25] MEDS: MIDODRINE HCL 2.5 MG TABLET 5 MG PO ×3 (08:36→16:47)
[2020-11-25] MEDS: ZINC SULFATE 220 MG CAPSULE PO (08:37)
[2020-11-25] MEDS: TAMSULOSIN HCL 0.4 MG CAPSULE PO (08:37)
[2020-11-25] MEDS: AMIODARONE HCL 50 MG TABLET PO (08:37)
[2020-11-25] MEDS: ASCORBIC ACID 500 MG TABLET PO (08:37)
--- NOTE | 2020-11-25 14:04 | PM.DS ---
DS: Admitting Diagnosis Admitting Diagnosis Admitting Diagnosis: Syncope, COVID pneumonia DS: Discharge Diagnosis Discharge Diagnosis (1) Pneumonia due to COVID-19 virus: Code(s): U07.1 - COVID-19; J12.82 - Pneumonia due to coronavirus disease 2019 Status: Acute Assessment and Plan: Recently diagnosed on 11/21. Symptoms started on 11/19 with diarrhea; lost sense of taste on 11/20 which returned this hospital stay. CXR shows patchy airspace opacities in right mid and upper lung zones, consistent with pneumonia. CTA head/neck shows incidental findings suggestive of COVID pneumonia as well. On RA at time of visit. Maintaining adequate O2 sats on RA. Does not meet criteria for Decadron or Remdesivir Continue supportive care Supplemental O2 as needed Will need f/u with PCP Discharge today to [place] (2) Micturition syncope: Code(s): R55 - Syncope and collapse Status: Acute Assessment and Plan: History of this in the past, as well as orthostatic hypotension. Still orthostatic, but improved; nursing reports his knees felt weak upon standing today. On Florinef and Midodrine at home. ROMMEL hose thigh highs applied. He has been instructed to sit when urinating. He had extensive work up for orthostatic hypotension on previous admission. He states he feels uncomfortable going home alone. CC following and states family will self pay for placement; he will go to [facility] for SNF at discharge Discharge to SNF today He will need follow up with Cardiology and Neurology ROMMEL Hose thigh high (3) Idiopathic Parkinson's disease: Code(s): G20 - Parkinson's disease Status: Chronic Assessment and Plan: Follows Dr. Marrero/Dr. Martinez Continue home medications F/u with Dr. Martinez (4) PAF (paroxysmal atrial fibrillation): Code(s): I48.0 - Paroxysmal atrial fibrillation Status: Chronic Assessment and Plan: The patient appears to be in sinus rhythm Continue his home Eliquis although if he has continued episodes of syncope, this will need to be readdressed Continue amiodarone F/u with Cardiology as outpatient (5) SHERLY (obstructive sleep apnea): Code(s): G47.33 - Obstructive sleep apnea (adult) (pediatric) Status: Acute Assessment and Plan: Reportedly does not use CPAP DS: Summary Hospital Course Reason for hospitalization: Syncope, COVID pneumonia, NH/SNF placement Hospital Course: Date of arrival: 11/23/20 Date of discharge: 11/25/20 Patient is a 80 yo M with history of orthostatic hypotension, recurrent episodes of micturition syncope, PAF (on amiodarone, Elquis), and parkinson's disease who presented to the ED on 11/23 with complaints of weakness and syncope. He was recently diagnosis with COVID on 11/21 and started having symptoms on 11/19. He also reported passing out in his bathroom the night prior to arrival. While in the ED, CTA head/neck was grossly unremarkable for acute findings and CXR showed patchy airspace opacities in right mid and upper lung zones consistent with pneumonia. He was maintaining his O2 sats on room air. Patient admitted under this setting of syncopal episode and COVID. Please see H&P for further details. Patient was admitted to the hospitalist service for further management. Patient continued to be orthostatic during stay, but was minimally symptomatic. He was given ROMMEL hose thigh highs as he only wore knee highs at home. His orthostasis did improve some by time of discharge, but still positive on day of discharge. Given that orthostatic hypotension and micturition syncope were chronic issues, it was felt that patient was to be discharged with instructions to follow up with his established neurologist for [facility]
[2020-11-25] MEDS: ACETAMINOPHEN 325 MG TABLET 650 MG PO (16:47)
== END 2020-11-25 17:30 | DRG 177 ==
LOC: ANHED 09:54 → ANH3MEDSUR 15:08
PROVIDERS: Nurse Practitioner; Admitting Provider Internal Medicine; Emergency Provider General Practice; PCP Family Medicine Adolescent Medicine; Visit Provider Physician Assistant
DX: U07.1 COVID-19 (principal); J12.82 Pneumonia due to coronavirus disease 2019; G20 Parkinson's disease; I95.1 Orthostatic hypotension; I48.0 Paroxysmal atrial fibrillation; G47.33 Obstructive sleep apnea (adult) (pediatric)
CPT/HCPCS: 36415; 36600; 70450; 70496; 70498; 71045; 80048; 80053; 81003; 82375; 82728; 82805; 83050; 83605; 83615; 83690; 83735; 84443; 84484; 85025; 85380; 85610; 85730; 86140; 93005; 96360; 96361; 97161; 97165; 99285; A9270; G0378; J7030; J7120; Q9967

== ENCOUNTER 2021-08-27 01:34 | Day surgery (SDC) | payer MEDICARE, SELFPAY ==
[2021-08-22 10:09] VITALS: BMI 29.8
--- NOTE | 2021-08-26 06:47 | PM.HPGS ---
History of Present Illness History of Present Illness Consent: Risks, benefits, and alternatives have been discussed and questions answered. Patient agrees to proceed with procedure. Chief complaint: Chronic Hoaseness Narrative: Higinio Agosto Jr. is a 80 year old male the long history of dry mouth and raspy voice Review of Systems Review of Systems: All systems reviewed & are unremarkable except as noted in HPI and below PMFSH Past Medical History Medical History Asthma Chronotropic incompetence Dizziness on standing LEE (dyspnea on exertion) Idiopathic Parkinson's disease Micturition syncope SHERLY (obstructive sleep apnea) PAF (paroxysmal atrial fibrillation) Trifascicular block Surgical History Surgical History History of appendectomy Family History Family History Father Silicosis Mother Heart disease Sibling Heart valve disease COVID-19 Mother Family history of congestive heart failure Sibling Carcinoma of colon Father Family history of lung disease, Onset Age: 71 Social History Social History Social History: The patient lives home alone. He was living with the brother that just recently with COVID-19. The patient has never been or had any children. 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 He never smoked he may be drinks 1 beer a week. His current brother is a durable power disability attorney for healthcare. 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 He does not even want to be on a ventilator temporarily. Smoking status: Never smoker Second hand tobacco smoke exposure: No Alcohol intake: current Drinks per week: 1 Substance use: never Substance use type: does not use Living arrangements: alone Gender identity (if verbalized by the patient): Male Spiritual care concerns: No Meds Home Medications and Allergies Home Medications Medication Instructions Recorded Confirmed Type fludrocortisone 0.1 mg PO DAILY 07/19/20 08/22/21 History tamsulosin 0.4 mg PO DAILY 07/19/20 08/22/21 History ropinirole [Requip] 0.125 mg PO TID #45 tablet 07/29/20 08/22/21 Rx apixaban 5 mg tablet See Rx Instructions .ROUTE 06/19/21 08/22/21 Rx .COMPLEX #60 tablet oxybutynin chloride 5 mg tablet 5 mg PO DAILY 07/08/21 08/22/21 History pravastatin 10 mg tablet 10 mg PO DAILY 07/08/21 08/22/21 History amiodarone 100 mg tablet 100 mg PO DAILY #30 tablet 07/23/21 08/22/21 Rx Allergies Allergy/AdvReac Type Severity Reaction Status Date / Time doxylamine AdvReac Severe DIZZINESS, Verified 08/22/21 09:45 SYNCOPAL FEELING acetaminophen [From Tylenol] AdvReac Dizziness Verified 08/22/21 09:45 DEXTROMETHORPHAN HBR AdvReac Severe DIZZINESS, Uncoded 08/22/21 09:45 SYNCOPAL FEELING PSEUDOEPHEDRINE HCL AdvReac Severe DIZZINESS, Uncoded 08/22/21 09:45 SYNCOPAL FEELING Exam Narrative: chest clear heart rhythm murmurs abdomen soft cords markedly swollen Assessment and Plan Additional Plan plan microlaryngoscopy and biopsy
[2021-08-27] VITALS (9 sets, daily range): BP systolic 141–178; BP diastolic 73–88; PULSE 56–72; RESP 12–18; TEMP 36.1–36.3; O2SAT 96–100
--- NOTE | 2021-08-27 06:21 | WPDHPUPDATE1 ---
History and Physical Update Update Date/Time: 08/27/21 06:21 History and Physical has been reviewed, including an updated exam of the patient. There are NO changes in the patient's condition. Risks, benefits, and alternatives have been discussed and questions answered. Patient agrees to proceed with procedure.
[2021-08-27] MEDS: LACTATED RINGERS 1,000 ML 30 ML IV CONT (08:18)
--- NOTE | 2021-08-27 09:35 | WPDANESEPPF ---
Anes - Initial Pre Proc Eval Procedure: Operation Date: 08/27/21 09:45 Proposed Procedures p Microlaryngoscopy With Biopsy - Joey Chaidez MD Date/Time: 08/27/21 09:35 Surgeon: Joey Chaidez MD Pre Op Diagnosis: Chronic Hoaseness Patient Data Age: 80 Gender: M Height: 1.83 m Weight: 97.4 kg Last Vital Signs Temp 36.1 C L 08/27/21 08:11 Pulse 64 08/27/21 08:11 Resp 18 08/27/21 08:11 BP 143/86 H 08/27/21 08:11 Pulse Ox 97 08/27/21 08:11 Allergies Allergy/AdvReac Type Severity Reaction Status Date / Time doxylamine AdvReac Severe DIZZINESS, Verified 08/27/21 08:34 SYNCOPAL FEELING DEXTROMETHORPHAN HBR AdvReac Severe DIZZINESS, Uncoded 08/27/21 08:34 SYNCOPAL FEELING PSEUDOEPHEDRINE HCL AdvReac Severe DIZZINESS, Uncoded 08/27/21 08:34 SYNCOPAL FEELING Home Medications Medication Instructions Recorded Confirmed Type fludrocortisone 0.1 mg PO DAILY 07/19/20 08/27/21 History tamsulosin 0.4 mg PO DAILY 07/19/20 08/27/21 History ropinirole [Requip] 0.125 mg PO TID #45 tablet 07/29/20 08/27/21 Rx apixaban 5 mg tablet See Rx Instructions .ROUTE 06/19/21 08/27/21 Rx .COMPLEX #60 tablet oxybutynin chloride 5 mg tablet 5 mg PO DAILY 07/08/21 08/27/21 History pravastatin 10 mg tablet 10 mg PO DAILY 07/08/21 08/27/21 History amiodarone 100 mg tablet 100 mg PO DAILY #30 tablet 07/23/21 08/27/21 Rx Patient hx anesthesia problems: none Family hx anesthesia problems: none Results Review: All pre-operative results and documents have been reviewed as part of the pre-operative evaluation. [facility] Past Medical History Medical History Asthma Chronotropic incompetence Dizziness on standing LEE (dyspnea on exertion) Idiopathic Parkinson's disease Micturition syncope SHERLY (obstructive sleep apnea) PAF (paroxysmal atrial fibrillation) Trifascicular block Surgical History Surgical History History of appendectomy Family History Family History Father Silicosis Mother Heart disease Sibling Heart valve disease COVID-19 Mother Family history of congestive heart failure Sibling Carcinoma of colon Father Family history of lung disease, Onset Age: 71 Social History Social History Social History: The patient lives home alone. He was living with the brother that just recently with COVID-19. The patient has never been or had any children. 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 He never smoked he may be drinks 1 beer a week. His current brother is a durable power contracts attorney for healthcare. 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 He does not even want to be on a ventilator temporarily. Smoking status: Never smoker Second hand tobacco smoke exposure: No Alcohol intake: current Drinks per week: 1 Substance use: never Substance use type: does not use Living arrangements: alone Gender identity (if verbalized by the patient): Male Spiritual care concerns: No Anes - Eval Final PreProcedure Day of Procedure 08/27/21 09:35 Patient weight: overweight Heart: regular rate and rhythm Lungs: clear to auscultation Airway: Mallampati scale class II Neurological: alert and oriented ASA classification: III Emergent: no Anesthetic plan: proceed Anesthesia type and monitoring: general ETT and standard monitoring Results Review: All pre-operative results and documents have been reviewed as part of the pre-operative evaluation. Informed Consent: The patient's anesthetic plan and its attendant risks and benefits were discussed with the patient/family/POA. Questions were solicited and answers provided to the satisfaction of the patient/family/POA.
--- NOTE | 2021-08-27 11:39 | W.PM.PROC2 ---
Procedure Note - Detailed Date of Procedure 08/27/21 Pre-op Diagnosis Chronic Hoaseness Post-op Diagnosis same Procedure Performed Microlaryngoscopy and biopsy Surgeon Joey Chaidez MD Description of Procedure Patient prepped and draped general is general anesthesia the laryngoscope was adjusted introduced level of glottis with micro technique and the microscope a very small area of irritation on the left anterior cord was biopsied sent for pathologic examination procedure terminated
== END 2021-08-27 13:40 | disposition home or self-care (01) ==
PROVIDERS: PCP Family Medicine Adolescent Medicine; Visit Provider Otolaryngology
PROC: 0CJS8ZZ Inspection of Larynx, Via Natural or Artificial Opening Endoscopic (ICD-10-PCS; CPT 31575; principal; 2021-08-27 09:45)
DX: J38.3 Other diseases of vocal cords (principal); R49.0 Dysphonia; J45.909 Unspecified asthma, uncomplicated; G20 Parkinson's disease; G47.33 Obstructive sleep apnea (adult) (pediatric); I48.0 Paroxysmal atrial fibrillation; I25.10 Atherosclerotic heart disease of native coronary artery without angina pectoris; I45.3 Trifascicular block; I45.89 Other specified conduction disorders; Z79.01 Long term (current) use of anticoagulants
CPT/HCPCS: 31536; 88305; J2704; J7120

== ENCOUNTER 2022-10-12 07:27 | Inpatient (IN) | payer MEDICARE, SELFPAY ==
[2022-10-12] VITALS (16 sets, daily range): BP systolic 115–152; BP diastolic 66–95; PULSE 76–94; RESP 14–22; TEMP 36.4–37.1; O2SAT 85–99; BMI 28.4; BMI 28.5
--- NOTE | ~2022-10-12 | XR_ITS ---
EXAMINATION: XR chest 2V DATE: 10/12/2022 07:44 INDICATION: Shortness of breath TECHNIQUE: Frontal and lateral views of the chest are obtained COMPARISON: 11/23/2020 FINDINGS: There is a large hiatal hernia. There is mild passive atelectasis of the adjacent lung base s. No focal airspace opacities are identified. There are trace pleural effusions. No pneumothorax is identified. The heart size is normal. There are bridging osteophytes at multiple levels in the spine, consistent with diffuse idiopathic skeletal hyperostosis (DISH). IMPRESSION: 1. Large hiatal hernia with mild passive atelectasis of the adjacent lung bases. 2. Trace pleural effusions. Reviewed, dictated and finalized at location A. TENANCE ENGINEER OIL FIELD IMPRESSION: 1. Large hiatal hernia with mild passive atelectasis of the adjacent lung bases . 2. Trace pleural effusions.
--- NOTE | 2022-10-12 07:31 | ECG_ITS ---
Measurements Intervals [place] Rate: 85 P: IN: 0 QRS: -76 QRSD: 163 T: 49 QT: 405 QTc: 483 Interpretive Statements NORMAL SINUS RHYTHM WITH A FIRST-DEGREE AV BLOCK LEFT AXIS DEVIATION [QRS AXIS < -30] RIGHT BUNDLE BRANCH BLOCK [120+ ms QRS DURATION, UPRIGHT V1, 40+ ms S IN I/aVL/V4/V5/V6] COMPARED TO ECG 11/23/2020 09:23:34 NO SIGNIFICANT CHANGE Electronically Signed On 10-12-2022 14:46:09 ROOF ASSEMBLER by Angela Palacios M.D.
[2022-10-12 07:41] LABS: Basophils Percent Auto 0.3 % (0.2-1.2); Eosinophils Absolute Auto 0.1 K/mm3 (0-0.3); Eosinophils Percent Auto 1.3 % (0-4.4); Hematocrit 44.7 % (42.0-52.0); Hemoglobin 14.9 g/dL (14.0-18.0); Immature Granulocyte Absolute 0.01 K/mm3 (0.00-0.031); Immature Granulocyte Percent A 0.1 % (0-0.5); Lymphocytes Absolute Auto 1.46 K/mm3 (0.9-3.2); Lymphocytes Percent Auto 21.3 % (18.3-44.2); Mean Corpuscular HGB Conc 33.3 g/dl (32-36); Mean Corpuscular Hemoglobin 30.5 pg (26-34); Mean Corpuscular Volume 91.4 fl (80-100); Mean Platelet Volume 9.1 fl (7.4-10.4); Monocytes Absolute Auto 0.4 K/mm3 (0.1-0.6); Monocytes Percent Auto 6.1 % (2.6-8.5); Neutrophils Absolute Auto 4.9 K/mm3 (1.3-6.7); Neutrophils Percent Auto 70.9 % (45.5-73.1); Platelet Count Result 209 k/mm3 (150-375); Red Blood Count 4.89 M/mm3 (4.6-6.20); White Blood Count 6.9 K/mm3 (4.5-10.0)
[2022-10-12 07:53] LABS: Alanine Aminotransferase 21 U/L (6-50); Albumin Level 4.4 g/dL (3.5-5.1); Alkaline Phosphatase 58 U/L (38-126); Anion Gap 8 mmol/L (8-16); Aspartate Amino Transferase 23 U/L (17-59); Bilirubin,Total 0.6 mg/dL (0.2-1.3); Blood Urea Nitrogen 14 mg/dL (9-20); Calcium 8.9 mg/dL (8.4-10.2); Carbon Dioxide 29 mmol/L (22-30); Chloride 101 mmol/L (98-107); Estimated CRCL calculation 63 ml/min; Estimated Glomerular Filt Rate > 60; Glucose 103 mg/dL (65-110); Potassium 3.4 mmol/L (3.4-5.0); Sodium 138 mmol/L (137-145)
--- NOTE | 2022-10-12 07:55 | ED.GENADULT ---
HPI - General Adult General Chief complaint: Shortness of Breath/Dyspnea Stated complaint: SOB History of Present Illness HPI narrative: 82-year-old male presenting to the emergency department for evaluation of worsening shortness of breath over the last 2 weeks. Patient states he has had some cough and congestion over the last 2 weeks but felt that it worsened this morning. Patient denies any associated chest pain. Patient states he has no prior history of lung disease. Patient reports he is not a smoker. Patient did have some diarrhea with this but states it was only 1 time. Does have a previous history of paroxysmal atrial fibrillation, long-term use of anticoagulants, Parkinson's disease. Related Data Allergies Allergy/AdvReac Type Severity Reaction Status Date / Time dextromethorphan AdvReac Severe DIZZINESS, Verified 10/12/22 14:46 SYNCOPAL FEELING doxylamine AdvReac Severe DIZZINESS, Verified 07/22/22 10:54 SYNCOPAL FEELING pseudoephedrine AdvReac Severe DIZZINESS, Verified 10/12/22 14:46 SYNCOPAL FEELING Review of Systems Review of Systems: CONSTITUTIONAL: Denies fever, chills, or sweats. EYES: Denies visual changes, redness, or discharge. ENT: Denies rhinorrhea, congestion, sore throat, or otalgia. CARDIOVASCULAR: Denies chest pain, palpitations, or edema. RESPIRATORY: See HPI GASTROINTESTINAL: See HPI GENITOURINARY: Denies dysuria or hematuria. SKIN: Denies rash or itching. MUSCULOSKELETAL: Denies back pain, joint pain, or myalgia. NEUROLOGIC: Denies headache, numbness, or weakness. [facility] Past Medical History Medical History (Updated 10/12/22 @ 14:59 by Tracy Mosquera PA-C) Aortic atherosclerosis (~06/2020) Asthma Benign prostatic hyperplasia with lower urinary tract symptoms Chronic anticoagulation Diastolic dysfunction Hemorrhoids, internal Kidney stones Micturition syncope Mucinous cystadenoma of appendix (2012) Obstructive sleep apnea Orthostatic hypotension Parkinson's disease Paroxysmal atrial fibrillation Pneumonia due to COVID-19 virus Surgical History Surgical History (Updated 10/12/22 @ 14:59 by Tracy Mosquera PA-C) History of appendectomy (2012) History of bilateral cataract extraction History of cardiac catheterization (07/2020) History of colon resection (2012) Cecectomy-cystadenoma of the appendix. History of cystoscopy Family History Family History Father Silicosis Mother Heart disease Sibling Heart valve disease COVID-19 Mother Family history of congestive heart failure Sibling Carcinoma of colon Father Family history of lung disease, Onset Age: 71 Social History Social History (Updated 10/12/22 @ 14:56 by Tracy Mosquera PA-C) Social History: Lives alone in [place]. Never , no children. 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 Nonsmoker. Rare alcohol use. No illicit substance use. Surrogate decision maker: Viral Agosto, brother. Code status: Full code. Spiritual care concerns: No Agree to blood products: Yes Exam Narrative: APPEARANCE: Well appearing, no pain, no distress, well-nourished. HEAD: normocephalic, atraumatic. EYES: PERRLA/EOMI, conjunctivae clear. NOSE: Normal no drainage EARS:TMS clear with good light reflex. NECK: Supple. No adenopathy, no masses. RESPIRATORY: Airway patent, respirations nonlabored. Cough with congestion and rhonchi in lower lungs CARDIOVASCULAR: Regular rate and rhythm without murmurs rubs or gallops. ABDOMINAL: Soft, nontender, nondistended, normal bowel sounds MUSCULOSKELETAL: Moves all extremities. Strength/ROM intact, No edema, No calf tenderness. NEURO: Alert. Cranial nerves II through XII intact. Grossly intact n SKIN: Warm, dry. Normal Color Course Course Emergency Course: Patient was hypoxic on room air but his oxygenation was 98% on 2 L. Patient is afebrile with no leukocytosis. Patient
[2022-10-12 08:16] LABS: Influenza A QL RT-PCR Positive (Negative); Influenza B QL RT-PCR Negative (Negative); RSV RNA, RT-PCR Negative (Negative); SARS-CoV-2 RNA PCR Negative
[2022-10-12 08:22] LABS: NT Pro B Type Natriuretic Pept 543 pg/mL (5-100)
[2022-10-12] MEDS: ALBUTEROL SULFATE NEB 2.5 MG/3 ML INH 5 MG INHALATION ×2 (09:01→13:53)
[2022-10-12] MEDS: OSELTAMIVIR PHOSPHATE 75 MG CAPSULE PO ×2 (09:31→20:41)
--- NOTE | 2022-10-12 13:05 | PM.IMHP ---
H&P: HPI History of Present Illness Date/Time: 10/12/22 13:05 Chief Complaint: Shortness of breath. Narrative: This is a very pleasant 82-year-old male with history of paroxysmal atrial fibrillation on chronic anticoagulation, hyperlipidemia, Parkinson's, orthostatic hypotension, and benign prostatic hyperplasia who presented to the emergency department via EMS from home for evaluation of shortness of breath. He has not been feeling well for at least 1 week with multiple symptoms to include headache, body aches, mild sore throat, nonproductive cough, loose stools, and progressive dyspnea on lesser and lesser exertion. He denies fever, nausea, vomiting, chest pain, pleuritic pain, syncope, and presyncope. He was afebrile on arrival to the emergency department. SpO2 was 85% he is currently on 2 liters nasal cannula. Labs were really unremarkable. He was positive for influenza A. Chest x-ray showed a large hiatal hernia with mild passive atelectasis of the adjacent lung bases and trace pleural effusions. He is being admitted in this setting for further treatment. Review of Systems Review of Systems: Twelve systems were reviewed. No sinus congestion or sore throat. Denies neck pain. Appetite has been okay. He frequently has lower urinary tract symptoms to include decreased stream sensations of incomplete bladder evacuation. Except as documented, all other systems were reviewed and are negative. [facility] Past Medical History Medical History (Updated 10/12/22 @ 14:59 by Tracy Mosquera PA-C) Aortic atherosclerosis (~06/2020) Asthma Benign prostatic hyperplasia with lower urinary tract symptoms Chronic anticoagulation Diastolic dysfunction Hemorrhoids, internal Kidney stones Micturition syncope Mucinous cystadenoma of appendix (2012) Obstructive sleep apnea Orthostatic hypotension Parkinson's disease Paroxysmal atrial fibrillation Pneumonia due to COVID-19 virus Surgical History Surgical History (Updated 10/12/22 @ 14:59 by Trayc Mosquera PA-C) History of appendectomy (2012) History of bilateral cataract extraction History of cardiac catheterization (07/2020) History of colon resection (2012) Cecectomy-cystadenoma of the appendix. History of cystoscopy Family History Family History Father Silicosis Mother Heart disease Sibling Heart valve disease COVID-19 Mother Family history of congestive heart failure Sibling Carcinoma of colon Father Family history of lung disease, Onset Age: 71 Social History Social History (Updated 10/12/22 @ 14:56 by Tracy Mosquera PA-C) Social History: Lives alone in [place]. Never , no children. 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 Nonsmoker. Rare alcohol use. No illicit substance use. Surrogate decision maker: Viral Agosto, brother. Code status: Full code. Spiritual care concerns: No Agree to blood products: Yes Meds Home Medications and Allergies Home Medications Medication Instructions Recorded Confirmed Type tamsulosin 0.4 mg capsule 0.4 mg PO DAILY #90 caps 12/16/21 07/22/22 Rx amiodarone 200 mg tablet 100 mg PO DAILY #45 tabs 01/21/22 07/22/22 Rx fludrocortisone 0.1 mg tablet 0.1 mg PO DAILY #90 tabs 05/15/22 07/22/22 Rx pravastatin 10 mg tablet 10 mg PO DAILY #30 tabs 05/26/22 07/22/22 Rx apixaban 5 mg tablet (Eliquis) See Rx Instructions .Route 06/13/22 07/22/22 Rx .COMPLEX #60 tabs oxybutynin chloride 5 mg tablet 5 mg PO QHS #90 tabs 06/18/22 07/22/22 Rx primidone 50 mg tablet 150 mg PO QHS #90 tabs 07/07/22 07/22/22 Rx ropinirole 0.25 mg tablet 0.125 mg PO TID #45 tabs 09/16/22 Rx Allergies Allergy/AdvReac Type Severity Reaction Status Date / Time dextromethorphan AdvReac Severe DIZZINESS, Verified 10/12/22 14:46 SYNCOPAL FEELING doxylamine AdvReac Severe DIZZINESS, Verified 07/22/22 10:54 SYNCOPAL FEELING pseudoephedrine AdvReac Severe DIZZIN
--- NOTE | 2022-10-12 16:55 | PC.NURSE ---
This patient, Higinio Agosto Jr., was admitted to Medical Room 241-01. Patient/family oriented to hospital policies and general routines including ID bracelet, bed and alarms, visiting hours, pain management, procedures, bathroom and other care routines, personal items, smoking policy, room service/diet, and visiting hours. Information on how to activate the Rapid Response Team has been discussed. Patient/Family are encouraged to report perceived risks to care and to ask questions if they do not understand what they are told or what they should do.
[2022-10-12] MEDS: OXYBUTYNIN CHLORIDE 5 MG TABLET PO (21:33)
[2022-10-12] MEDS: APIXABAN 5 MG TABLET PO (21:33)
[2022-10-12] MEDS: rOPINIRole HCL 0.125 MG TABLET PO (21:34)
[2022-10-12] MEDS: PRIMIDONE 50 MG TABLET 150 MG PO (21:34)
--- NOTE | 2022-10-12 22:12 | PCRCNOTE ---
window of time for administration has passed. see next available administration.
[2022-10-13] VITALS (22 sets, daily range): BP systolic 81–131; BP diastolic 50–98; PULSE 56–88; RESP 17–21; TEMP 36.2–36.3; O2SAT 94–100
[2022-10-13] MEDS: ALBUTEROL SULFATE NEB 2.5 MG/3 ML INH 5 MG INHALATION ×3 (02:08→21:10)
[2022-10-13 05:33] LABS: Basophils Percent Auto 0.2 % (0.2-1.2); Eosinophils Percent Auto 0.1 % (0-4.4); Hematocrit 39.9 % (42.0-52.0); Hemoglobin 13.3 g/dL (14.0-18.0); Immature Granulocyte Absolute 0.03 K/mm3 (0.00-0.031); Immature Granulocyte Percent A 0.3 % (0-0.5); Lymphocytes Absolute Auto 1.71 K/mm3 (0.9-3.2); Lymphocytes Percent Auto 16.1 % (18.3-44.2); Mean Corpuscular HGB Conc 33.3 g/dl (32-36); Mean Corpuscular Hemoglobin 30.6 pg (26-34); Mean Corpuscular Volume 91.7 fl (80-100); Mean Platelet Volume 9.7 fl (7.4-10.4); Monocytes Absolute Auto 0.8 K/mm3 (0.1-0.6); Monocytes Percent Auto 7.8 % (2.6-8.5); Neutrophils Absolute Auto 8.1 K/mm3 (1.3-6.7); Neutrophils Percent Auto 75.5 % (45.5-73.1); Platelet Count Result 197 k/mm3 (150-375); Red Blood Count 4.35 M/mm3 (4.6-6.20); Red Cell Distribution Width 13.2 % (11.5-14.5); White Blood Count 10.7 K/mm3 (4.5-10.0)
[2022-10-13 05:48] LABS: Anion Gap 4 mmol/L (8-16); Blood Urea Nitrogen 9 mg/dL (9-20); Carbon Dioxide 28 mmol/L (22-30); Chloride 101 mmol/L (98-107); Estimated CRCL calculation 80 ml/min; Estimated Glomerular Filt Rate > 60; Glucose 116 mg/dL (65-110); Magnesium 2.3 mg/dL (1.6-2.3); Potassium 3.6 mmol/L (3.4-5.0); Sodium 133 mmol/L (137-145)
[2022-10-13 06:23] LABS: Procalcitonin 0.1 ng/mL
[2022-10-13] MEDS: OSELTAMIVIR PHOSPHATE 75 MG CAPSULE PO ×2 (08:35→20:23)
[2022-10-13] MEDS: TAMSULOSIN HCL 0.4 MG CAPSULE PO (08:35)
[2022-10-13] MEDS: APIXABAN 5 MG TABLET PO ×2 (08:35→18:02)
[2022-10-13] MEDS: AMIODARONE HCL 100 MG TABLET PO (08:35)
[2022-10-13] MEDS: CYANOCOBALAMIN 500 MCG TABLET PO (08:35)
[2022-10-13] MEDS: FLUDROCORTISONE ACETATE 0.1 MG TABLET PO (08:36)
[2022-10-13] MEDS: PRAVASTATIN SODIUM 10 MG TABLET PO (08:36)
[2022-10-13] MEDS: rOPINIRole HCL 0.125 MG TABLET PO ×3 (08:38→18:02)
--- NOTE | 2022-10-13 10:53 | P.PNIM_ITS ---
Progress Note: A&P Assessment and Plan (1) Influenza A: Code(s): J10.1 - Influenza due to other identified influenza virus with other respiratory manifestations Status: Acute Assessment and Plan: He has been started on Tamiflu and will be placed in isolation per protocol. He is afebrile with normal white blood cell count and no evidence of pneumonia on chest x-ray however given the length of his symptoms without improvement he will also be started on azithromycin and ceftriaxone, pending sputum culture. Continue supportive care. (2) Hypoxia: Code(s): R09.02 - Hypoxemia Status: Acute Assessment and Plan: SpO2 was 85% in ED. He is now on 2 liters with sats in the upper 90s. PE unlikely as he is on anticoagulation. Wean as tolerated. (3) Paroxysmal atrial fibrillation: Code(s): I48.0 - Paroxysmal atrial fibrillation Status: Acute Assessment and Plan: Currently in a sinus rhythm. Continue amiodarone. (4) Chronic anticoagulation: Code(s): Z79.01 - human resource manager (current) use of anticoagulants Status: Acute Assessment and Plan: Continue apixaban for stroke prophylaxis. (5) Benign prostatic hyperplasia with lower urinary tract symptoms: Code(s): N40.1 - Benign prostatic hyperplasia with lower urinary tract symptoms Status: Acute Assessment and Plan: He has intermittent symptoms including slow stream and feelings of incomplete bladder evacuation. Continue tamsulosin and bladder scan as needed. (6) Diastolic dysfunction: Code(s): I51.89 - Other ill-defined heart diseases Status: Acute Assessment and Plan: Trace pleural effusions and pedal edema on imaging. Avoid over-hydration and monitor volume status closely. L (7) Parkinson's disease: Code(s): G20 - Parkinson's disease Status: Acute Assessment and Plan: Per patient, he believes he only has essential tremors. Continue primidone and ropinirole. (8) Orthostatic hypotension: Code(s): I95.1 - Orthostatic hypotension Status: Acute Assessment and Plan: Continue fludrocortisone. Ambulate with assistance. Monitor orthostatic vital signs Q shift. (9) Obstructive sleep apnea: Code(s): G47.33 - Obstructive sleep apnea (adult) (pediatric) Status: Acute Assessment and Plan: CPAP will be provided for the patient to use while hospitalized. Subjective Date/time seen: 10/13/22 10:53 no new complaints Exam Const: Other: Mildly ill-appearing male sitting up in bed receiving a nebulizer treatment in no acute distress. Weight: 100 kilograms. BMI: 29.9. HENMT: Other: Normocephalic, atraumatic. Nares patent. Oral mucosa moist. Eyes: Other: Pupils are reactive. Extraocular motions intact. Sclerae anicteric. Neck: Other:
--- NOTE | 2022-10-13 10:53 | PM.IMPN ---
Progress Note: A&P Assessment and Plan (1) Influenza A: Code(s): J10.1 - Influenza due to other identified influenza virus with other respiratory manifestations Status: Acute Assessment and Plan: He has been started on Tamiflu and will be placed in isolation per protocol. He is afebrile with normal white blood cell count and no evidence of pneumonia on chest x-ray however given the length of his symptoms without improvement he will also be started on azithromycin and ceftriaxone, pending sputum culture. Continue supportive care. (2) Hypoxia: Code(s): R09.02 - Hypoxemia Status: Acute Assessment and Plan: SpO2 was 85% in ED. He is now on 2 liters with sats in the upper 90s. PE unlikely as he is on anticoagulation. Wean as tolerated. (3) Paroxysmal atrial fibrillation: Code(s): I48.0 - Paroxysmal atrial fibrillation Status: Acute Assessment and Plan: Currently in a sinus rhythm. Continue amiodarone. 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 (5) Benign prostatic hyperplasia with lower urinary tract symptoms: Code(s): N40.1 - Benign prostatic hyperplasia with lower urinary tract symptoms Status: Acute Assessment and Plan: He has intermittent symptoms including slow stream and feelings of incomplete bladder evacuation. Continue tamsulosin and bladder scan as needed. (6) Diastolic dysfunction: Code(s): I51.89 - Other ill-defined heart diseases Status: Acute Assessment and Plan: Trace pleural effusions and pedal edema on imaging. Avoid over-hydration and monitor volume status closely. (7) Parkinson's disease: Code(s): G20 - Parkinson's disease Status: Acute Assessment and Plan: Per patient, he believes he only has essential tremors. Continue primidone and ropinirole. (8) Orthostatic hypotension: Code(s): I95.1 - Orthostatic hypotension Status: Acute Assessment and Plan: Continue fludrocortisone. Ambulate with assistance. Monitor orthostatic vital signs Q shift. (9) Obstructive sleep apnea: Code(s): G47.33 - Obstructive sleep apnea (adult) (pediatric) Status: Acute Assessment and Plan: CPAP will be provided for the patient to use while hospitalized. Subjective Date/time seen: 10/13/22 10:53 no new complaints Exam Const: Other: Mildly ill-appearing male sitting up in bed receiving a nebulizer treatment in no acute distress. Weight: 100 kilograms. BMI: 29.9. HENMT: Other: Normocephalic, atraumatic. Nares patent. Oral mucosa moist. Eyes: Other: Pupils are reactive. Extraocular motions intact. Sclerae anicteric. Neck: Other: Supple. No lymphadenopathy. Resp: Other: Respirations are nonlabored. He appears to be in no respiratory distress and is speaking in full sentences. Lung sounds are coarse with faint expiratory wheezes. Cardio: Other: Regular rate rhythm with normal S1-S2. GI: Other: Abdomen is soft, nontender, and nondistended with positive bowel sounds. Skin: Other: Warm and dry. Neuro: Other: Alert. Currently of through 12 grossly intact. Upper extremity tremors noted. No gross focal deficits to casual conversation. Extrem: Other: No cyanosis or clubbing. Mild, bilateral pedal edema. Peripheral pulses intact. Psych: Other: Pleasant and cooperative with appropriate mood and affect. Objective Data Vital Signs Vital Signs: Vital Signs - 24 hr 10/12/22 12:03 10/12/22 14:29 10/12/22 15:42 Temperature Pulse Rate 88 88 91 Respiratory Rate 15 18 20 Blood Pressure 152/95 H 137/85 135/81 Pulse Oximetry 98 99 97 Oxygen Delivery Oxygen Flow Rate 10/12/22 18:10 10/12/22 17:30 10/12/22 22:48 Temperature 97.9 F Pulse Rate 87 76 Respiratory
--- NOTE | 2022-10-13 11:13 | PCRCNOTE ---
Window of time for administration has passed. See next scheduled administration.
[2022-10-13] MEDS: FERROUS SULFATE DRIED 142 MG TABCR PO (12:35)
[2022-10-13] MEDS: OXYBUTYNIN CHLORIDE 5 MG TABLET PO (20:23)
[2022-10-13] MEDS: PRIMIDONE 50 MG TABLET 150 MG PO (20:24)
[2022-10-14] VITALS (15 sets, daily range): BP systolic 92–137; BP diastolic 59–77; PULSE 54–105; RESP 18–20; TEMP 36.1–36.9; O2SAT 94–100
[2022-10-14] MEDS: TAMSULOSIN HCL 0.4 MG CAPSULE PO (08:33)
[2022-10-14] MEDS: rOPINIRole HCL 0.125 MG TABLET PO ×3 (08:33→17:57)
[2022-10-14] MEDS: APIXABAN 5 MG TABLET PO ×2 (08:33→17:56)
[2022-10-14] MEDS: OSELTAMIVIR PHOSPHATE 75 MG CAPSULE PO ×2 (08:33→20:25)
[2022-10-14] MEDS: PRAVASTATIN SODIUM 10 MG TABLET PO (08:33)
[2022-10-14] MEDS: FERROUS SULFATE DRIED 142 MG TABCR PO (08:33)
[2022-10-14] MEDS: CYANOCOBALAMIN 500 MCG TABLET PO (08:34)
[2022-10-14] MEDS: FLUDROCORTISONE ACETATE 0.1 MG TABLET PO (08:34)
[2022-10-14] MEDS: AMIODARONE HCL 100 MG TABLET PO (08:34)
--- NOTE | 2022-10-14 10:33 | PCRCNOTE ---
Window of time for administration has passed. See next scheduled administration.
--- NOTE | 2022-10-14 12:05 | P.PNIM_ITS ---
Progress Note: A&P Assessment and Plan (1) Influenza A: Code(s): J10.1 - Influenza due to other identified influenza virus with other respiratory manifestations Status: Acute Assessment and Plan: He has been started on Tamiflu and will be placed in isolation per protocol. He is afebrile with normal white blood cell count and no evidence of pneumonia on chest x-ray however given the length of his symptoms without improvement he will also be started on azithromycin and ceftriaxone, pending sputum culture. Continue supportive care. (2) Hypoxia: Code(s): R09.02 - Hypoxemia Status: Acute Assessment and Plan: SpO2 was 85% in ED. He is now on 2 liters with sats in the upper 90s. PE unlikely as he is on anticoagulation. Wean as tolerated. (3) Paroxysmal atrial fibrillation: Code(s): I48.0 - Paroxysmal atrial fibrillation Status: Acute Assessment and Plan: Currently in a sinus rhythm. Continue amiodarone. 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 (5) Benign prostatic hyperplasia with lower urinary tract symptoms: Code(s): N40.1 - Benign prostatic hyperplasia with lower urinary tract symptoms Status: Acute Assessment and Plan: He has intermittent symptoms including slow stream and feelings of incomplete bladder evacuation. Continue tamsulosin and bladder scan as needed. (6) Diastolic dysfunction: Code(s): I51.89 - Other ill-defined heart diseases Status: Acute Assessment and Plan: Trace pleural effusions and pedal edema on imaging. Avoid over-hydration and monitor volume status closely. L (7) Parkinson's disease: Code(s): G20 - Parkinson's disease Status: Acute Assessment and Plan: Per patient, he believes he only has essential tremors. Continue primidone and ropinirole. (8) Orthostatic hypotension: Code(s): I95.1 - Orthostatic hypotension Status: Acute Assessment and Plan: Continue fludrocortisone. Ambulate with assistance. Monitor orthostatic vital signs Q shift. (9) Obstructive sleep apnea: Code(s): G47.33 - Obstructive sleep apnea (adult) (pediatric) Status: Acute Assessment and Plan: CPAP will be provided for the patient to use while hospitalized. Subjective Date/time seen: 10/14/22 12:05 no new complaints. respiratory status okay. Exam Const: Other: Mildly ill-appearing male sitting up in bed receiving a nebulizer treatment in no acute distress. Weight: 100 kilograms. BMI: 29.9. HENMT: Other: Normocephalic, atraumatic. Nares patent. Oral mucosa moist. Eyes: Other: Pupils are reactive. Extraocular motions intact. Sclerae anicteric
--- NOTE | 2022-10-14 12:05 | PM.IMPN ---
Progress Note: A&P Assessment and Plan (1) Influenza A: Code(s): J10.1 - Influenza due to other identified influenza virus with other respiratory manifestations Status: Acute Assessment and Plan: He has been started on Tamiflu and will be placed in isolation per protocol. He is afebrile with normal white blood cell count and no evidence of pneumonia on chest x-ray however given the length of his symptoms without improvement he will also be started on azithromycin and ceftriaxone, pending sputum culture. Continue supportive care. (2) Hypoxia: Code(s): R09.02 - Hypoxemia Status: Acute Assessment and Plan: SpO2 was 85% in ED. He is now on 2 liters with sats in the upper 90s. PE unlikely as he is on anticoagulation. Wean as tolerated. (3) Paroxysmal atrial fibrillation: Code(s): I48.0 - Paroxysmal atrial fibrillation Status: Acute Assessment and Plan: Currently in a sinus rhythm. Continue amiodarone. 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 (5) Benign prostatic hyperplasia with lower urinary tract symptoms: Code(s): N40.1 - Benign prostatic hyperplasia with lower urinary tract symptoms Status: Acute Assessment and Plan: He has intermittent symptoms including slow stream and feelings of incomplete bladder evacuation. Continue tamsulosin and bladder scan as needed. (6) Diastolic dysfunction: Code(s): I51.89 - Other ill-defined heart diseases Status: Acute Assessment and Plan: Trace pleural effusions and pedal edema on imaging. Avoid over-hydration and monitor volume status closely. (7) Parkinson's disease: Code(s): G20 - Parkinson's disease Status: Acute Assessment and Plan: Per patient, he believes he only has essential tremors. Continue primidone and ropinirole. (8) Orthostatic hypotension: Code(s): I95.1 - Orthostatic hypotension Status: Acute Assessment and Plan: Continue fludrocortisone. Ambulate with assistance. Monitor orthostatic vital signs Q shift. (9) Obstructive sleep apnea: Code(s): G47.33 - Obstructive sleep apnea (adult) (pediatric) Status: Acute Assessment and Plan: CPAP will be provided for the patient to use while hospitalized. Subjective Date/time seen: 10/14/22 12:05 no new complaints. respiratory status okay. Exam Const: Other: Mildly ill-appearing male sitting up in bed receiving a nebulizer treatment in no acute distress. Weight: 100 kilograms. BMI: 29.9. HENMT: Other: Normocephalic, atraumatic. Nares patent. Oral mucosa moist. Eyes: Other: Pupils are reactive. Extraocular motions intact. Sclerae anicteric. Neck: Other: Supple. No lymphadenopathy. Resp: Other: Respirations are nonlabored. He appears to be in no respiratory distress and is speaking in full sentences. Lung sounds are coarse with faint expiratory wheezes. Cardio: Other: Regular rate rhythm with normal S1-S2. GI: Other: Abdomen is soft, nontender, and nondistended with positive bowel sounds. Skin: Other: Warm and dry. Neuro: Other: Alert. Currently of through 12 grossly intact. Upper extremity tremors noted. No gross focal deficits to casual conversation. Extrem: Other: No cyanosis or clubbing. Mild, bilateral pedal edema. Peripheral pulses intact. Psych: Other: Pleasant and cooperative with appropriate mood and affect. Objective Data Vital Signs Vital Signs: Vital Signs - 24 hr 10/13/22 14:17 10/13/22 16:00 10/13/22 21:10 Temperature 97.3 F L Pulse Rate 65 56 L 57 L Respiratory Rate 21 H 18 Blood Pressure 119/58 L Pulse Oximetry 94 Oxygen Delivery 10/13/22 21:00 10/13/22 21:20 10/13/22 20:00 Temperature Pulse Rate 57 L 61 67 Respirator
[2022-10-14] MEDS: ALBUTEROL SULFATE NEB 2.5 MG/3 ML INH 5 MG INHALATION ×2 (12:21→19:50)
[2022-10-14] MEDS: OXYBUTYNIN CHLORIDE 5 MG TABLET PO (20:25)
[2022-10-14] MEDS: PRIMIDONE 50 MG TABLET 150 MG PO (20:25)
[2022-10-15] VITALS (11 sets, daily range): BP systolic 84–150; BP diastolic 57–89; PULSE 65–88; RESP 16–20; TEMP 36.7; O2SAT 96–97
--- NOTE | 2022-10-15 04:22 | PCRCNOTE ---
Patient refused 0200 updraft treatment due to wanting sleep. Treatment will resume at 0800.
[2022-10-15] MEDS: ALBUTEROL SULFATE NEB 2.5 MG/3 ML INH 5 MG INHALATION ×2 (07:41→13:06)
[2022-10-15] MEDS: PRAVASTATIN SODIUM 10 MG TABLET PO (08:12)
[2022-10-15] MEDS: OSELTAMIVIR PHOSPHATE 75 MG CAPSULE PO (08:12)
[2022-10-15] MEDS: FERROUS SULFATE DRIED 142 MG TABCR PO (08:12)
[2022-10-15] MEDS: rOPINIRole HCL 0.125 MG TABLET PO ×2 (08:12→12:16)
[2022-10-15] MEDS: CYANOCOBALAMIN 500 MCG TABLET PO (08:12)
[2022-10-15] MEDS: TAMSULOSIN HCL 0.4 MG CAPSULE PO (08:12)
[2022-10-15] MEDS: AMIODARONE HCL 100 MG TABLET PO (08:12)
[2022-10-15] MEDS: FLUDROCORTISONE ACETATE 0.1 MG TABLET PO (08:12)
[2022-10-15] MEDS: APIXABAN 5 MG TABLET PO (08:13)
--- NOTE | 2022-10-15 12:27 | PM.DS ---
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 Status: Acute (5) Benign prostatic hyperplasia with lower urinary tract symptoms: Code(s): N40.1 - Benign prostatic hyperplasia with lower urinary tract symptoms Status: Acute (6) Diastolic dysfunction: Code(s): I51.89 - Other ill-defined heart diseases Status: Acute (7) Parkinson's disease: Code(s): G20 - Parkinson's disease Status: Acute (8) Orthostatic hypotension: Code(s): I95.1 - Orthostatic hypotension Status: Acute (9) Obstructive sleep apnea: Code(s): G47.33 - Obstructive sleep apnea (adult) (pediatric) Status: Acute DS: Summary Hospital Course Reason for hospitalization: 82-year-old male with paroxysmal AFib, Parkinson's disease and orthostatic hypotension here for evaluation for shortness of breath. Please see H&P for details. Hospital Course: Patient was afebrile on admission. SpO2 was 85% on room air. Influenza nasal swab was positive for influenza A. Chest x-ray showed large hiatal hernia with mild passive atelectasis of adjacent lung bases and trace pleural effusions. Procalcitonin was 0.1. Sputum cultures pending. EKG showed normal sinus rhythm with right bundle-branch block but overall no significant change from prior. He was started on Tamiflu. He was started on IV antibiotics. Nebulizer treatments were also started. He had clinical improvement. He was weaned to room air. He has been up ambulating in the room. He does complain of urinary hesitancy but this is been going on for years and is requesting a Urology follow-up. He feels ready for discharge. Patient overall did well was able discharged home on 10/15/2022. Status at Discharge Cognitive/behavioral status at discharge: Stable Time Spent with Patient Time attestation: Total time spent providing and/or coordinating discharge services: 35 minutes Time spent: Greater than 30 minutes Exam Narrative: AF 98.1 96/58 96 18 96% ra Gen - NARD Chest - a few scattered rhonchi, nml RR CV - RRR S1/S2 Abd - Soft, NT/ND, Positive BS. Bladder does not feel distended Ext - No pedal edema Psych - Nml mood and affect Skin - Warm and dry Discharge Plan Discharge Attending physician on discharge: Ángel Iqbal Discharging Clinician: Ángel Iqbal Anticipated Discharge Date/Time: 10/15/22 12:36 Patient Disposition: Home, Self-Care Activity: as tolerated Diet: heart healthy Discharge Instructions: Please avoid large gathering, wear face coverings in public and practice social distance. Please complete your antibiotic course even if you are starting to feel well. Take precautions to avoid falls. Rise slowly from a lying or sitting position. Pause before standing or walking. Contact your doctor or call 911 and come to the Emergency Room if you have fevers or other worrisome symptoms. Avoid NSAIDs (ibuprofen, naproxen, Aleve). Tylenol is safe to take. Follow-up with your primary care provider in 1-2 weeks. Please call for appointment. Follow-up with urology for your prostate symptoms. Please call for an appointment. Thank you for using [facility] for your health care needs. Patient Instructions: Antibiotic Form, Pain Management (DC) Stand Alone Forms: General Discharge Information Follow-up/Referrals: Joey Oliver MD [Physician] - Call for Appointment Barbara
--- NOTE | 2022-10-22 08:19 | PC.NURSE ---
Sputum cx shows normal amandeep. Dr. Rasheed monroy.
== END 2022-10-15 14:44 | disposition home or self-care (01) | DRG 195 ==
LOC: ANHED 09:03 → ANH2MED 22:59
PROVIDERS: Physician Assistant; Admitting Provider Internal Medicine; Emergency Provider Emergency Medicine; PCP Family Medicine Adolescent Medicine; Visit Provider Internal Medicine
DX: J10.1 Influenza due to other identified influenza virus with other respiratory manifestations (principal); R09.02 Hypoxemia; I48.0 Paroxysmal atrial fibrillation; N40.1 Benign prostatic hyperplasia with lower urinary tract symptoms; Z20.822 Contact with and (suspected) exposure to COVID-19; I51.89 Other ill-defined heart diseases; G20 Parkinson's disease; I95.1 Orthostatic hypotension; G47.33 Obstructive sleep apnea (adult) (pediatric); E78.5 Hyperlipidemia, unspecified; Z79.01 Long term (current) use of anticoagulants; Z86.16 Personal history of COVID-19; Z98.42 Cataract extraction status, left eye; Z98.41 Cataract extraction status, right eye; Z90.49 Acquired absence of other specified parts of digestive tract
CPT/HCPCS: 36415; 71046; 80048; 80053; 83735; 83880; 84145; 85025; 87070; 87205; 87637; 93005; 94640; 94660; 99285; A9270; J0456; J0696

== ENCOUNTER 2023-02-11 12:08 | Outpatient (CLI) | payer MEDICARE, SELFPAY ==
--- NOTE | 2023-02-11 12:29 | ECHO_ITS ---
Patient Info Name: Higinio Agosto Age: 82 years : 1940 Gender: Male Ht: 72 in Wt: 217 lbs BSA: 2.26 m2 HR: 61 bpm BP: 106 / 76 mmHg Technical Quality: Good Exam Date: 02/11/2023 12:45 PM Exam Location: [facility] Patient Status: Outpatient Admit Date: 02/11/2023 Staff Ordering Physician: Medardo oTng DO Power Tool Repair Technician: Saw Horton RDCS, RT Attending Provider: Medardo Tong DO Referring Physician: Ran ESPINOZA; Exam Type: CA echo doppler color flow Study Info Indications I48.0 - Paroxysmal atrial fibrillation Complete two-dimensional, color flow and Doppler transthoracic echocardiogram is performed. Summary 1. Complete two-dimensional, color flow and Doppler transthoracic echocardiogram is performed. 2. Left ventricular chamber dimension is mildly enlarged. 3. Left ventricular systolic function is normal, estimated at 55-60%. 4. There is mild concentric increased left ventricular wall thickness. 5. The left ventricular diastolic function is abnormal. 6. E/e' 20 is elevated. 7. There is mild aortic valve sclerosis. 8. There is mild aortic valve stenosis with a peak velocity of 229 cm/s, mean gradient of 7 mmHg, and aortic valve area of 1.4 cm2. 9. There is mild aortic valve regurgitation. 10. There is mild tricuspid valve regurgitation. 11. No pulmonary hypertension, estimated pulmonary arterial systolic pressure is 30 mmHg. Left Ventricle E/e' 20 is elevated. Left ventricular chamber dimension is mildly enlarged. Left ventricular systolic function is normal, estimated at 55-60%. There is mild concentric increased left ventricular wall thickness. The left ventricular diastolic function is abnormal. Right Ventricle Right ventricular systolic function is normal and with normal TAPSE 3.1 cm. Right ventricular chamber dimension is normal. Left Atria Left atrial chamber dimension is normal. Right Atria Right atrial chamber dimension is normal. Aortic Valve The aortic valve is trileaflet. There is mild aortic valve sclerosis. There is mild aortic valve stenosis with a peak velocity of 229 cm/s, mean gradient of 7 mmHg, and aortic valve area of 1.4 cm2. There is mild aortic valve regurgitation. Pulmonic Valve There is no pulmonic regurgitation. Mitral Valve There is no mitral valve stenosis. There is no mitral valve regurgitation. Tricuspid Valve There is mild tricuspid valve regurgitation. No pulmonary hypertension, estimated pulmonary arterial systolic pressure is 30 mmHg. Pericardium/Pleural There is no pericardial effusion. Inferior Vena Cava Normal inferior vena cava with >50% collapse upon inspiration consistent with normal right atrial pressure, 5 mmHg. Aorta The aortic root size at the sinus of Valsalva is normal. Left Ventricular Outflow Tract Name Value Normal LVOT 2D LVOT Diameter 2.0 cm LVOT Doppler LVOT Peak Gradient 3 mmHg LVOT Mean Gradient 1 mmHg LVOT VTI 21 cm LVOT VTI/AV VTI Ratio 0.4 LVOT Stroke Volume
== END 2023-02-11 12:09 | disposition home or self-care (01) ==
LOC: ANHCARD 12:09
PROVIDERS: PCP Family Medicine Adolescent Medicine; Visit Provider Internal Medicine Cardiovascular Disease
DX: I48.0 Paroxysmal atrial fibrillation (principal); I35.1 Nonrheumatic aortic (valve) insufficiency; I36.1 Nonrheumatic tricuspid (valve) insufficiency
CPT/HCPCS: 93306

== ENCOUNTER 2024-08-18 09:24 | Emergency (ER) | payer MEDICARE, SELFPAY ==
[2024-08-18 09:30] VITALS: BP 113/73; PULSE 90; RESP 16; TEMP 36.8; O2SAT 97
[2024-08-18 10:30] VITALS: BP 120/69; PULSE 83; RESP 14; O2SAT 95
--- NOTE | 2024-08-18 10:30 | PC.NURSE ---
PER ERP - GIVE PT PO FLUIDS AND WAIT FOR URINE; DENIES NEED FOR CATHETERIZATION.
[2024-08-18 10:37] LABS: Basophils Percent Auto 0.5 % (0.2-1.2); Hematocrit 42.6 % (42.0-52.0); Hemoglobin 14.4 g/dL (14.0-18.0); Immature Granulocyte Absolute 0.02 K/mm3 (0.00-0.031); Immature Granulocyte Percent A 0.2 % (0-0.5); Lymphocytes Absolute Auto 0.59 K/mm3 (0.9-3.2); Lymphocytes Percent Auto 7.3 % (18.3-44.2); Mean Corpuscular HGB Conc 33.8 g/dl (32-36); Mean Corpuscular Hemoglobin 31.4 pg (26-34); Mean Platelet Volume 9.3 fl (7.4-10.4); Monocytes Absolute Auto 0.6 K/mm3 (0.1-0.6); Monocytes Percent Auto 7.8 % (2.6-8.5); Neutrophils Absolute Auto 6.8 K/mm3 (1.3-6.7); Neutrophils Percent Auto 84.2 % (45.5-73.1); Platelet Count Result 191 k/mm3 (150-375); Red Blood Count 4.58 M/mm3 (4.6-6.20); Red Cell Distribution Width 13.1 % (11.5-14.5); White Blood Count 8.1 K/mm3 (4.5-10.0)
[2024-08-18 10:49] LABS: Anion Gap 7 mmol/L (4-12); Blood Urea Nitrogen 14 mg/dL (9-20); Carbon Dioxide 29 mmol/L (22-30); Chloride 99 mmol/L (98-107); Estimated CRCL calculation 47 ml/min; Estimated Glomerular Filt Rate 58; Glucose 115 mg/dL (65-110); Potassium 4.7 mmol/L (3.4-5.0); Sodium 135 mmol/L (137-145)
[2024-08-18 11:31] VITALS: BP 122/68; PULSE 97; RESP 18; O2SAT 99
[2024-08-18 11:54] LABS: Add Urine Microscopic? NO; Appearance Urine Clear (Clear); Bilirubin Urine Negative (Negative); Blood Urine Negative (Negative); Color Urine Yellow (Yellow); Glucose Urine UA Negative (Negative); Ketones Urine Negative (Negative); Leukocyte Esterase Ur Negative LEU/UL (Negative); Nitrate Urine Negative (Negative); Protein Urine Negative (Negative); Specific Grav Ur 1.008 (1.001-1.035); Urobilinogen Urine 0.2 mg/dL (<2.0)
--- NOTE | 2024-08-18 12:17 | ED_ITS ---
HPI - Male Genitourinary General Chief complaint: Urogenital-Male Stated complaint: cannot pee Time Seen by Provider: 08/18/24 09:28 Source: patient Mode of arrival: ambulatory Limitations: no limitations History of Present Illness HPI Narrative: 83-year-old with a history of paroxysmal atrial fibrillation on Eliquis, BPH here with a complaint of having difficulty urinating for quite some time. Denies any fever or chills. No dysuria. Patient states he has been taking his medication. Complaint: other (Difficulty urinating) Onset (ago): week(s) Duration: intermittent Severity: moderate Relieving factors: none Exacerbating factors: none Associated symptoms: Reports denies other symptoms Related Data Home Medications Medication Instructions Recorded Confirmed cyanocobalamin (vitamin B-12) 500 500 mcg PO DAILY 10/12/22 08/05/24 mcg tablet ferrous sulfate, dried 144 mg (45 45 mg PO DAILY 10/12/22 08/05/24 mg iron) tablet,extended release (Slow Release Iron) alfuzosin 10 mg tablet,extended 10 mg PO DAILY 01/21/23 08/05/24 release 24 hr Allergies Allergy/AdvReac Type Severity Reaction Status Date / Time dextromethorphan AdvReac Severe DIZZINESS, Verified 08/05/24 10:47 SYNCOPAL FEELING doxylamine AdvReac Severe DIZZINESS, Verified 08/05/24 10:47 SYNCOPAL FEELING pseudoephedrine AdvReac Severe DIZZINESS, Verified 08/05/24 10:47 SYNCOPAL FEELING Review of Systems Review of Systems: All systems reviewed & are unremarkable except as noted in HPI and below Constitutional: Constitutional: Reports no additional constitutional complaints Eyes: Eyes: Reports no additional eye complaints ENT: Reports system reviewed and no additional complaints, except as documented Cardiovascular: Cardiovascular: Reports no additional cardiovascular complaints Respiratory: Respiratory: Reports no additional respiratory complaints Gastrointestinal: Gastrointestinal: Reports no additional gastrointestinal complaints Genitourinary: Genitourinary: Reports as per HPI Musculoskeletal: Musculoskeletal: Reports no additional musculoskeletal complaints [facility] Past Medical History Medical History Aortic atherosclerosis (~06/2020) Asthma Benign prostatic hyperplasia with lower urinary tract symptoms Diastolic dysfunction Hemorrhoids, internal Kidney stones Micturition syncope Mucinous cystadenoma of appendix (2012) Orthostatic hypotension Parkinson's disease Paroxysmal atrial fibrillation Pneumonia due to COVID-19 virus Surgical History Surgical History History of appendectomy (2012) History of bilateral cataract extraction History of cardiac catheterization (07/2020) History of colon resection (2012) Cecectomy-cystadenoma of the appendix. History of cystoscopy Family History Family History Father Silicosis Mother Heart disease Sibling Heart valve disease COVID-19 Mother Family history of congestive heart failure Sibling Carcinoma of colon Father Family history of lung disease, Onset Age: 71 Social History Social History Social History: Lives alone in [place]. Never , no children. 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 Nonsmoker. Rare alcohol use. No illicit substance use. Surrogate decision maker: Viral Agosto, brother. Code status: Full code. Smoking status: Never smoker Alcohol intake: never Substance use: never Lack of Transportation: No Lack of Food: Never True Current Housing: I Have Housing Concerned About Future Housing: No Difficulty Paying Gas/Electric Bills: No Difficulty Paying for Meds: No Currently Unemployed: No Education: Grade School Difficulty w/ Childcare or Family Care: No Living arrangements: alone Occupation/Education: retired Gender identity (if verbalized by the patient): Male Sexual Orientation (if Verbalized by the Patient): Straight or Heterosexual Spiritual care concerns: No Agree to blood products: Yes Exam Narrative: GENERAL: Well-appearing, well-nourished, and in no acute distress. HEAD: Normocephalic, atraumatic. EYES: PERRLA and EOMI. ENT: Nares clear NECK: Supple. CHEST: Clear to auscultation. No respiratory distress. HEART: Regular rate and rhythm. No murmur heard. Normal peripheral pulses. ABDOMEN: Soft, nontender, nondistended, normal active bowel sounds. EXTREMITIES: Normal range of motion. No edema. SKIN: Warm, dry, no rash. NEURO: No focal deficits. Alert and oriented x3. PSYCH: Normal mood and affect. Course Course Emergency Course: Did scan his bladder upon arrival he had 18 mL of urine., no suprapubic tenderness his UA is clear. Advised him to continue his home medications, follow-up with urologist. Vital Signs Vital signs: Vital Signs Temperature 36.8 C 08/18/24 09:30 Pulse Rate 90 08/18/24 09:30 Respiratory Rate 16 08/18/24 09:30 Blood Pressure 113/73 08/18/24 09:30 Pulse Oximetry 97 08/18/24 09:30 Oxygen Delivery Room Air 08/18/24 09:30 Temperature 36.8 C 08/18/24 09:30 Pulse Rate 97 08/18/24 11:31 Respiratory Rate 18 08/18/24 11:31 Blood Pressure 122/68 08/18/24 11:31 Pulse Oximetry 99 08/18/24 11:31 Oxygen Delivery Room Air 08/18/24 09:30 MDM - Male Genitourinary MDM Narrative Medical decision making narrative: 83-year-old with a history of BPH has difficulty urinating and bladder scan showed 18 mL of urine. Will check for infection if that is clear most likely it is from his BPH. Differential Diagnosis Differential diagnosis: Likely urinary tract infection, prostatitis and acute retention of urine Medical Records Attestation: I reviewed the patient's medical records. Lab Data Attestation: I reviewed the patient's lab results. 08/18/24 10:32 08/18/24 10:32 Labs: Lab Results 08/18/24 08/18/24 Range/Units 10:32 11:48 WBC 8.1 (4.5-10.0) K/mm3 RBC 4.58 L (4.6-6.20) M/mm3 Hgb 14.4 (14.0-18.0) g/dL Hct 42.6 (42.0-52.0) % MCV 93.0 (80-100) fl MCH 31.4 (26-34) pg MCHC 33.8 (32-36) g/dl RDW 13.1 (11.5-14.5) % Plt Count 191 (150-375) k/mm3 MPV 9.3 (7.4-10.4) fl Immature Gran % (Auto) 0.2 (0-0.5) % Neut % (Auto) 84.2 H (45.5-73.1) % Lymph % (Auto) 7.3 L (18.3-44.2) % Hawkins % (Auto) 7.8 (2.6-8.5) % Eos % (Auto) 0.0 (0-4.4) % Baso % (Auto) 0.5 (0.2-1.2) % Lymph # (Auto) 0.59 L (0.9-3.2) K/mm3 Hawkins # (Auto) 0.6 (0.1-0.6) K/mm3 Eos # (Auto) 0.0 (0-0.3) K/mm3 Baso # (Auto) 0.0 (0.0-0.1) K/mm3 Abs Immat Gran (auto) 0.02 (0.00-0.031) K/mm3 Absolute Neuts (auto) 6.8 H (1.3-6.7) K/mm3 Absolute Nucleated RBC 0.000 (0.0-0.012) K/mm3 Nucleated RBC % 0.0 (0.0-0.2) % Sodium 135 L (137-145) mmol/L Potassium 4.7 (3.4-5.0) mmol/L Chloride 99 (98-107) mmol/L Carbon Dioxide 29 (22-30) mmol/L Anion Gap 7 (4-12) mmol/L BUN 14 D (9-20) mg/dL Creatinine 1.20 (0.7-1.3) mg/dL Estim Creat Clear Calc 47 ml/min Estimated GFR 58 L (59 - ) Glucose 115 H (65-110) mg/dL Calcium 9.0 (8.4-10.2) mg/dL Urine Color Yellow (Yellow) Urine Appearance Clear (Clear) Urine pH 7.0 (5.0-9.0) Ur Specific [place] 1.008 (1.001-1.035) Urine Protein Negative (Negative) mg/dL Urine Glucose (UA) Negative (Negative) mg/dL Urine Ketones Negative (Negative) mg/dL Ur Blood (Man) Negative (Negative) Urine Nitrate Negative (Negative) Urine Bilirubin Negative (Negative) Urine Urobilinogen 0.2 (<2.0) mg/dL Leukocyte Esterase Rfl Negative (Negative) LEONEL/UL Discharge Plan Discharge Clinical Impression: Benign prostatic hyperplasia with lower urinary tract symptoms Qualifiers: Lower urinary tract symptom detail: weak urinary stream Qualified Code(s): N40.1 - Benign prostatic hyperplasia with lower urinary tract symptoms Patient Disposition: Home, Self-Care Condition: Stable Instructions: Enlarged Prostate (BPH) (ED) Additional Instructions: Continue home medications, follow with Dr. Oliver or Dr. Argueta regarding your urinary problem. Prescriptions: No Action alfuzosin 10 mg tablet extended release 24 hr 10 mg PO DAILY Rx Instructions: administer after the same meal each day tamsulosin 0.4 mg capsule 0.4 mg PO DAILY Qty: 90 3RF cyanocobalamin (vitamin B-12) 500 mcg Tablet 500 mcg PO DAILY Slow Release Iron 144 mg (45 mg iron) Tablet Extended Release 45 mg PO DAILY oxybutynin chloride 5 mg tablet 5 mg PO DAILY Qty: 90 1RF primidone 250 mg tablet 250 mg PO QHS Qty: 30 5RF Eliquis 5 mg tablet See Rx Instructions .ROUTE .COMPLEX Qty: 60 5RF Dose Instruction: TAKE 1 TABLET BY MOUTH TWICE DAILY Rx Instructions: TAKE 1 TABLET BY MOUTH TWICE DAILY amiodarone 200 mg tablet See Rx Instructions .ROUTE .COMPLEX Qty: 45 2RF Dose Instruction: TAKE 1/2 TABLET BY MOUTH DAILY Rx Instructions: TAKE 1/2 TABLET BY MOUTH DAILY fludrocortisone 0.1 mg tablet 0.1 mg PO DAILY Qty: 90 2RF pravastatin 10 mg tablet See Rx Instructions .ROUTE .COMPLEX Qty: 30 2RF Dose Instruction: TAKE 1 TABLET BY MOUTH DAILY Rx Instructions: TAKE 1 TABLET BY MOUTH DAILY ropinirole 0.25 mg tablet See Rx Instructions .ROUTE .COMPLEX Qty: 45 4RF Dose Instruction: TAKE 1/2 TABLET BY MOUTH THREE TIMES DAILY Rx Instructions: TAKE 1/2 TABLET BY MOUTH THREE TIMES DAILY Follow-up/Referrals: Joey Oliver MD [Physician] - Nile Gamez MD [Primary Care Provider] - Time of Disposition: 12:19
[2024-08-18 12:24] VITALS: BP 100/64; PULSE 76; RESP 20; O2SAT 96
== END 2024-08-18 12:26 | disposition home or self-care (01) ==
PROVIDERS: Emergency Provider Family Medicine; PCP Family Medicine Adolescent Medicine
DX: N40.1 Benign prostatic hyperplasia with lower urinary tract symptoms (principal); R39.12 Poor urinary stream; G20.A1 Parkinson's disease without dyskinesia, without mention of fluctuations; I48.0 Paroxysmal atrial fibrillation; I70.0 Atherosclerosis of aorta; I11.9 Hypertensive heart disease without heart failure; J45.909 Unspecified asthma, uncomplicated; Z87.442 Personal history of urinary calculi; Z86.16 Personal history of COVID-19; Z87.01 Personal history of pneumonia (recurrent); Z98.42 Cataract extraction status, left eye; Z98.41 Cataract extraction status, right eye; Z90.49 Acquired absence of other specified parts of digestive tract; Z79.01 Long term (current) use of anticoagulants; Z79.899 Other long term (current) drug therapy
CPT/HCPCS: 36415; 80048; 81003; 85025; 99283

== ENCOUNTER 2024-09-05 14:26 | Outpatient (CLI) | payer MEDICARE, SELFPAY ==
--- NOTE | 2024-09-05 15:00 | ECHO_ITS ---
Patient Info Name: Higinio Agosto Age: 83 years : 1940 Gender: Male Ht: 72 in Wt: 220 lbs BSA: 2.27 m2 HR: 64 bpm BP: 121 / 73 mmHg Technical Quality: Fair Exam Date: 09/05/2024 3:11 PM Exam Location: Echo Lab Patient Status: Outpatient Admit Date: 09/05/2024 Staff Ordering Physician: Medardo Tong DO Curtain Worker: Chata Knox RDCS Attending Provider: Medardo Tong DO Referring Physician: Ran ESPINOZA; Exam Type: CA echo dop color flow w con Study Info Indications I35.0 - Nonrheumatic aortic (valve) stenosis Complete two-dimensional, color flow and Doppler transthoracic echocardiogram is performed with contrast to opacify the left ventricle and to improve the deliniation of the left ventricle endocardial borders. Contrast/Agitated Saline Contrast/Ag. Saline: Definity Amount: 3.00 ml Administered By: Chata Knox RDCS New IV Access: Inner Forearm and Left Site Condition: No extravasation, Site dressing applied and IV removed Summary 1. Left ventricular chamber dimension is normal. 2. Left ventricular systolic function is normal, estimated at 60-65%. 3. There is mild concentric increased left ventricular wall thickness. 4. The left ventricular diastolic function is grade I diastolic dysfunction. 5. E/e' 18 is elevated. 6. Left atrial chamber dimension is mildly enlarged. 7. Right atrial chamber dimension is moderately enlarged. 8. There is moderate aortic valve sclerosis. 9. There is mild aortic valve stenosis with a peak velocity of 201.41 cm/s, mean gradient of 10 mmHg, and aortic valve area of 1.65 cm2. 10. There is trace aortic valve regurgitation. 11. There is mild mitral valve regurgitation. 12. No pulmonary hypertension, estimated pulmonary arterial systolic pressure is 29 mmHg. 13. There is trace pulmonic regurgitation. Left Ventricle E/e' 18 is elevated. Left ventricular chamber dimension is normal. Left ventricular systolic function is normal, estimated at 60-65%. There is mild concentric increased left ventricular wall thickness. The left ventricular diastolic function is grade I diastolic dysfunction. Right Ventricle Right ventricular chamber dimension is normal. Right ventricular systolic function is normal. Left Atria Left atrial chamber dimension is mildly enlarged. Right Atria Right atrial chamber dimension is moderately enlarged. Aortic Valve The aortic valve is trileaflet. There is moderate aortic valve sclerosis. There is mild aortic valve stenosis with a peak velocity of 201.41 cm/s, mean gradient of 10 mmHg, and aortic valve area of 1.65 cm2. There is trace aortic valve regurgitation. Pulmonic Valve There is trace pulmonic regurgitation. Mitral Valve There is no mitral valve stenosis. There is mild mitral valve regurgitation. Tricuspid Valve There is no tricuspid valve regurgitation. No pulmonary hypertension, estimated pulmonary arterial systolic pressure is 29 mmHg. Pericardium/Pleural There is no pericardial effusion. Inferior Vena Cava Normal inferior vena cava with >50% collapse upon inspiration consistent with normal right atrial pressure, 5 mmHg. Aorta The aortic root size at the sinus of Valsalva is normal. Left Ventricular Outflow Tract Name Value Normal LVOT 2D LVOT Diameter 2.02 cm LVOT Doppler LVOT Peak Gradient 4 mmHg LVOT Mean Gradient 2 mmHg LVOT VTI 24.13 cm LVOT VTI/AV VTI Ratio 0.51 LVOT Stroke Volume 77.63 ml LVOT CO 4.64 l/min LVOT CI 2.04 L/min/m2 Pulmonic Valve Name Value Normal RVOT Doppler RVOT Peak Gradient 1 mmHg PV Doppler PV Peak Gradient 2 mmHg Mitral Valve Name Value Normal MV Doppler MV Decel Callahan 343.84 cm/s2 MV PHT 0 s MV Area (PHT) 3.16 cm2 4.00-5.00 MV Diastolic Function MV E Peak Velocity 82.45 cm/s MV A Peak Velocity 110.65 cm/s MV E/A 0.75 MV Decel Time 0 s Tricuspid Valve Name Value Normal TV Regurgitation Doppler TR Peak Velocity 246.42 cm/s TR Peak Gradient 21 mmHg Estimated PAP/RSVP RA Pressure 5 mmHg <=5 PA Systolic Pressure 29 mmHg <36 RV Systolic Pressure 29 mmHg <36 Aorta Name Value Normal Ascending Aorta Ao Root Diameter (MM) 4.14 cm Ao Root Diam Index (MM) 1.82 cm/m2 Aortic Valve Name Value Normal AV 2D/MM AV Area (Planimetry) 1.83 cm2 AV Doppler AV Peak Velocity 201.41 cm/s AV Peak Gradient 16 mmHg AV Mean Gradient 10 mmHg AV VTI 47.00 cm AV Area (Cont Eq VTI) 1.65 cm2 >=3.00 AV Area (Cont Eq Tyrel) 1.68 cm2 AV Regurgitation 2D LVOT Area 3.22 cm2 AV Regurgitation Doppler AR Decel Time 2 s AR Decel Callahan 189.13 cm/s2 AR PHT 1 s Ventricles Name Value Normal LV Dimensions 2D/MM IVS Diastolic Thickness (2D) 0.64 cm 0.60-1.00 IVS Diastole Thickness (MM) 1.35 cm 0.60-1.00 LVID Diastole (2D) 4.83 cm 4.20-5.80 LVID Diastole (MM) 5.02 cm 4.20-5.80 LVIW Diastolic Thickness (2D) 1.08 cm 0.60-1.00 LVIW Diastolic Thickness (MM) 0.95 cm 0.60-1.00 LVID Systole (2D) 2.95 cm 2.50-4.00 LVID Systole (MM) 2.97 cm 2.50-4.00 LVOT Diameter 2.02 cm LV Mass (2D Cubed) 140.83 g 88.00-224.00 LV Mass Index (2D Cubed) 0.01 g/cm2 0.00-0.01 Relative Wall Thickness (2D) 0.45 LV Mass (MM Cubed) 221.56 g 88.00-224.00 LV Mass Index (MM Cubed) 0.01 g/cm2 0.00-0.01 Relative Wall Thickness (MM) 0.38 LV Fractional Shortening/Ejection Fraction 2D/MM LV Fractional Shortening (2D) 39 % 25-43 LV Fractional Shortening (MM) 41 % 25-43 LV EF (MM Teicholz) 71 % 52-72 LV EF (2D Teicholz) 69 % 52-72 LV Diastolic Volume (4C MOD) 139.81 ml LV EF (4C MOD) 56 % LV Diastolic Volume (2C MOD) 132.23 ml LV EF (2C MOD) 45 % LV Diastolic Volume (BP MOD) 136.62 ml 62.00-150.00 LV Diastolic Volume Index (BP MOD) 0.06 l/m2 0.03-0.07 LV Systolic Volume (BP MOD) 67.56 ml 21.00-61.00 LV Systolic Volume Index (BP MOD) 0.03 l/m2 0.01-0.03 LV EF (BP MOD) 51 % 52-72 LV Diastolic Length (4C) 8.41 cm LV Systolic Length (4C) 7.11 cm LV Stroke Volume (4C MOD) 78.78 ml Atria Name Value Normal LA Dimensions LA Dimension (MM) 4.72 cm 3.00-4.10 LA Volume (4C A-L) 82.27 ml LA Volume (BP A-L) 75.05 ml RA Dimensions RA Area (4C) 28.55 cm2 <=18.00 Report Signatures
[2024-09-05] MEDS: PERFLUTREN LIPID MICROSPHERES 1.5 ML VIAL DILUTED TO 10 ML TOTAL VOLUME IV PUSH (15:50)
--- NOTE | 2024-09-05 16:43 | IVDEFINITY ---
Prior to administration of IV Definity the patient was educated on the risks and benefits of the imaging enhancing agent including potential adverse side effects. The patient verbalized understanding. Allergies were verified. No exclusion criteria were identified and at least one of the following inclusion criteria were met: 1) physician request, 2) patient technically difficult to image (per the [place] [employer] Echocardi[employer] guidelines of two or more segments not discernable within the apical view), or 3) questionable left ventricular function. ?
== END 2024-09-05 14:27 | disposition home or self-care (01) ==
LOC: ANHCARD 14:28
PROVIDERS: PCP Family Medicine Adolescent Medicine; Visit Provider Internal Medicine Cardiovascular Disease
DX: I35.0 Nonrheumatic aortic (valve) stenosis (principal); I34.0 Nonrheumatic mitral (valve) insufficiency
CPT/HCPCS: C8929; Q9957

== ENCOUNTER 2024-12-30 22:19 | Emergency (ER) | payer MEDICARE, SELFPAY ==
--- NOTE | ~2024-12-30 | CT_ITS ---
EXAMINATION: CT abdomen pelvis wo con DATE: 12/31/2024 02:49 INDICATION: Flank pain. TECHNIQUE: Computed tomography (CT) of the abdomen and pelvis was performed without intravenous contr ast. Automated exposure control and iterative reconstruction technique were employed. The dose-length product was 448.02 mGy-cm. COMPARISON: CT abdomen and pelvis 07/23/2020 FINDINGS: The visualized portions of the lung bases demonstrate mild atelectasis. No pleural effusion . The heart size is normal. There are coronary artery calcifications. No pericardial effusion. There is a large sliding hiatal hernia containing a portion of the colon. There are cysts in the liver katiana uring up to 13 mm. The gallbladder, spleen, pancreas, adrenal glands, and right kidney are normal. Th ere are 4 stones in left kidney measuring up to 4 mm. There is mild left hydronephrosis and hydrouret er. There is a 7 mm stone at left ureterovesicular junction. The prostate is moderately enlarged. The re is diverticulosis of the colon without evidence of diverticulitis. There are changes of appendecto my. There are no pathologically enlarged lymph nodes. There is no free intraperitoneal fluid. There i s severe lumbar spondylosis. IMPRESSION: 1. 7 mm stone at left ureterovesicular junction with mild left hydronephrosis and hydroureter. 2. Nonobstructing left kidney stones. 3. Large sliding hiatal hernia. Reviewed, dictated and finalized at location A. L HAZMAT DRIVER IMPRESSION: 1. 7 mm stone at left ureterovesicular junction with mild left hydronephrosis a nd hydroureter. 2. Nonobstructing left kidney stones. 3. Large sliding hiatal hernia.
--- OUTSIDE RECORDS SUMMARY | 2024-12-30 22:21 | XMS_ITS | Clinical Summary ---
Author Organization [facility] [address] Address [address] [place] [address] Care Team Providers Care Flame Cutting Machine Operator Name Role Phone Nile Gamez MD Primary Care Prov ider Allergies Active Allergy Reactions Criticality Noted Date Comments Acetaminophen Dizziness Low 06/24/2017 Medications Hospital, Clinic, or Other Facility Administered Medication Ordered Dose Route Frequency Start Date End Date Status perflutren lipid (DEFINITY) 1.5 mL in sodium chloride 0.9% 10 mL syringeIndications:Shor tness of breath on exertion 1 - 10 mL IV Once in imaging 06/24/2017 Active Social History Tobacco Use Types Packs/Day Years Used Date Smoking Tobacco: Never Assessed Personal Safety Answer Date Recorded Getting School Help Needed Not on file 01/09 Sex and Gender Information Value Date Recorded Sex Assigned at Not on file Legal Sex Male 12:00 PM CDT Gender Identity Not on file Sexual Orientation Not on file Plan of Treatment Not on file Insurance MEDICARE [facility] Care Teams Flame Cutting Machine Operator Relationship Specialty Start Date End Date Nile Gamez MD [address] [place] [address] PCP - General Family Medicine 06/24/17
--- OUTSIDE RECORDS SUMMARY | 2024-12-30 22:21 | XMS_ITS | Referral Summary ---
Author Organization [facility] [address] Address [address] [place] [address] Care Team Providers Care Livestock Laborer Name Role Phone Nile Gamez MD Primary [...] of Treatment Not on file Insurance MEDICARE [facility] Care Teams Livestock Laborer Relationship Specialty Start Date End Date Nile Gamez MD [address] [place] [address] PCP - General Family Medicine 06/24/17
[2024-12-30 22:28] VITALS: BP 148/94; PULSE 81; RESP 19; TEMP 36.5; O2SAT 95
[2024-12-31 01:33] LABS: Basophils Absolute Auto 0.1 K/mm3 (0.0-0.1); Basophils Percent Auto 0.4 % (0.2-1.2); Eosinophils Absolute Auto 0.1 K/mm3 (0-0.3); Eosinophils Percent Auto 0.9 % (0-4.4); Hemoglobin 14.5 g/dL (14.0-18.0); Immature Granulocyte Absolute 0.03 K/mm3 (0.00-0.031); Immature Granulocyte Percent A 0.2 % (0-0.5); Lymphocytes Absolute Auto 1.83 K/mm3 (0.9-3.2); Mean Corpuscular HGB Conc 34.5 g/dl (32-36); Mean Corpuscular Volume 89.9 fl (80-100); Mean Platelet Volume 9.4 fl (7.4-10.4); Monocytes Percent Auto 8.3 % (2.6-8.5); Neutrophils Absolute Auto 9.2 K/mm3 (1.3-6.7); Neutrophils Percent Auto 75.2 % (45.5-73.1); Platelet Count Result 228 k/mm3 (150-375); Red Blood Count 4.67 M/mm3 (4.6-6.20); White Blood Count 12.2 K/mm3 (4.5-10.0)
[2024-12-31 01:34] LABS: Add Urine Microscopic? NO; Appearance Urine Clear (Clear); Bilirubin Urine Negative (Negative); Blood Urine Negative (Negative); Color Urine Yellow (Yellow); Glucose Urine UA Negative (Negative); Ketones Urine Negative (Negative); Leukocyte Esterase Ur Negative LEU/UL (Negative); Nitrate Urine Negative (Negative); Protein Urine Negative (Negative); Specific Grav Ur 1.019 (1.001-1.035); Urobilinogen Urine 0.2 mg/dL (<2.0); pH Urine 6.5 (5.0-9.0)
[2024-12-31 01:41] LABS: Alanine Aminotransferase 19 U/L (6-50); Albumin Level 4.4 g/dL (3.5-5.1); Alkaline Phosphatase 73 U/L (38-126); Anion Gap 11 mmol/L (4-12); Aspartate Amino Transferase 19 U/L (17-59); Bilirubin,Total 0.7 mg/dL (0.2-1.3); Blood Urea Nitrogen 16 mg/dL (9-20); Calcium 9.1 mg/dL (8.4-10.2); Carbon Dioxide 23 mmol/L (22-30); Chloride 101 mmol/L (98-107); Estimated CRCL calculation 49 ml/min; Estimated Glomerular Filt Rate > 60; Glucose 122 mg/dL (65-110); Sodium 135 mmol/L (137-145)
--- OUTSIDE RECORDS SUMMARY | 2024-12-31 01:56 | XMS_ITS | Referral Summary ---
Author Organization [facility] [address] Address [address] [place] [address] Care Team Providers Care Distribution Warehouse Manager Name Role Phone Nile Gamez MD Primary [...] of Treatment Not on file Insurance MEDICARE [facility] Care Teams Distribution Warehouse Manager Relationship Specialty Start Date End Date Nile Gamez MD [address] [place] [address] PCP - General Family Medicine 06/24/17
--- OUTSIDE RECORDS SUMMARY | 2024-12-31 01:56 | XMS_ITS | Clinical Summary ---
Author Organization [facility] [address] Address [address] [place] [address] Care Team Providers Care Pet Sitter Name Role Phone Nile Gamez MD Primary [...] of Treatment Not on file Insurance MEDICARE [facility] Care Teams Pet Sitter Relationship Specialty Start Date End Date Nile Gamez MD [address] [place] [address] PCP - General Family Medicine 06/24/17
[2024-12-31 02:37] VITALS: BP 164/85; PULSE 67; RESP 16; O2SAT 97
[2024-12-31] MEDS: ONDANSETRON INJ 4 MG/2 ML VIAL IV PUSH (02:38)
[2024-12-31] MEDS: MORPHINE SULFATE (*CRX) 4 MG/ML INJ 2 MG IV PUSH (02:38)
--- NOTE | 2024-12-31 04:00 | ED.GENADULT ---
HPI - General Adult General Chief complaint: Urogenital-Male Stated complaint: suspected kidney stone Time Seen by Provider: 12/31/24 01:40 History of Present Illness HPI narrative: This patient is a 84-year-old gentleman presents emergency department with chief complaint of left-sided flank pain. Patient reports that he has prior history of kidney stones and reports this feels similar to whenever he has kidney stones in the past. Related Data Home Medications ?Medication ?Instructions ?Recorded ?Confirmed ?Last Taken ?Type cyanocobalamin (vitamin B-12) 500 500 mcg PO DAILY 10/12/22 08/05/24 Unknown History mcg tablet ferrous sulfate, dried 144 mg (45 45 mg PO DAILY 10/12/22 08/05/24 Unknown History mg iron) tablet,extended release (Slow Release Iron) alfuzosin 10 mg tablet,extended 10 mg PO DAILY 01/21/23 08/05/24 Unknown History release 24 hr Allergies Allergy/AdvReac Type Severity Reaction Status Date / Time dextromethorphan AdvReac Severe DIZZINESS, Verified 12/30/24 22:23 SYNCOPAL FEELING doxylamine AdvReac Severe DIZZINESS, Verified 12/30/24 22:23 SYNCOPAL FEELING pseudoephedrine AdvReac Severe DIZZINESS, Verified 12/30/24 22:23 SYNCOPAL FEELING Review of Systems Review of Systems: A 10 system review of systems was completed on the patient and is negative except for what is stated in the HPI. Nursing and ancillary documentation was reviewed. [facility] Past Medical History Medical History Diastolic dysfunction Kidney stones Paroxysmal atrial fibrillation Mucinous cystadenoma of appendix (2012) Orthostatic hypotension Aortic atherosclerosis (~06/2020) Hemorrhoids, internal Benign prostatic hyperplasia with lower urinary tract symptoms Parkinson's disease Micturition syncope Pneumonia due to COVID-19 virus Asthma Surgical History Surgical History History of bilateral cataract extraction History of cardiac catheterization (07/2020) History of cystoscopy History of colon resection (2012) Cecectomy-cystadenoma of the appendix. History of appendectomy (2012) Family History Family History Father Silicosis Mother Heart disease Sibling Heart valve disease COVID-19 Mother Family history of congestive heart failure Sibling Carcinoma of colon Father Family history of lung disease, Onset Age: 71 Social History Social History Social History: Lives alone in [place]. Never , no children. 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 Nonsmoker. Rare alcohol use. No illicit substance use. Surrogate decision maker: Viral Agosto, brother. Code status: Full code. Smoking status: Never smoker Alcohol intake: never Substance use: never Lack of Transportation: No Lack of Food: Never True Current Housing: I Have Housing Concerned About Future Housing: No Difficulty Paying Gas/Electric Bills: No Difficulty Paying for Meds: No Currently Unemployed: No Education: Grade School Difficulty w/ Childcare or Family Care: No Living arrangements: alone Occupation/Education: retired Gender identity (if verbalized by the patient): Male Sexual Orientation (if Verbalized by the Patient): Straight or Heterosexual Spiritual care concerns: No Agree to blood products: Yes Exam Narrative: GENERAL: Well-appearing, well-nourished, and in no acute distress. HEAD: Normocephalic, atraumatic. EYES: PERRLA and EOMI. ENT: Nares clear, no rhinorrhea or epistaxis. Mucous membranes moist. NECK: Supple. CHEST: Clear to auscultation. No respiratory distress. HEART: Regular rate and rhythm. No murmur heard. Normal peripheral pulses. ABDOMEN: Soft, nontender, nondistended, normal active bowel sounds. EXTREMITIES: Normal range of motion. No edema. SKIN: Warm, dry, no rash. NEURO: No focal deficits. Alert and oriented x3. PSYCH: Normal mood and affect. Course Vital Signs Vital signs: Vital Signs Temperature 36.5 C 12/30/24 22:28 Pulse Rate 81 12/30/24 22:28 Respiratory Rate 19 12/30/24 22:28 Blood Pressure 148/94 H 12/30/24 22:28 Pulse Oximetry 95 12/30/24 22:28 Temperature 36.5 C 12/30/24 22:28 Pulse Rate 67 12/31/24 02:37 Respiratory Rate 16 12/31/24 02:37 Blood Pressure 164/85 H 12/31/24 02:37 Pulse Oximetry 97 12/31/24 02:37 Medical Decision Making [facility] Narrative Medical decision making narrative: Differential diagnosis includes UTI, pyelonephritis, ureterolithiasis Laboratory studies were obtained showed normal CBC CMP was within normal limits urinalysis showed no evidence UTI there was a 4 mm stone at the UVJ with left moderate hydronephrosis Patient's pain was controlled the patient is already on Flomax will be given a prescription for pain control and urine strainer Vital Signs Vital Signs: Vital Signs Temperature 36.5 C 12/30/24 22:28 Pulse Rate 81 12/30/24 22:28 Respiratory Rate 19 12/30/24 22:28 Blood Pressure 148/94 H 12/30/24 22:28 Pulse Oximetry 95 12/30/24 22:28 Temperature 36.5 C 12/30/24 22:28 Pulse Rate 67 12/31/24 02:37 Respiratory Rate 16 12/31/24 02:37 Blood Pressure 164/85 H 12/31/24 02:37 Pulse Oximetry 97 12/31/24 02:37 Lab Data 12/31/24 01:27 12/31/24 01:27 Labs: Lab Results 12/31/24 Range/Units 01:27 WBC 12.2 H (4.5-10.0) K/mm3 RBC 4.67 (4.6-6.20) M/mm3 Hgb 14.5 (14.0-18.0) g/dL Hct 42.0 (42.0-52.0) % MCV 89.9 (80-100) fl MCH 31.0 (26-34) pg MCHC 34.5 (32-36) g/dl RDW 13.0 (11.5-14.5) % Plt Count 228 (150-375) k/mm3 MPV 9.4 (7.4-10.4) fl Immature Gran % (Auto) 0.2 (0-0.5) % Neut % (Auto) 75.2 H (45.5-73.1) % Lymph % (Auto) 15.0 L (18.3-44.2) % [place] % (Auto) 8.3 (2.6-8.5) % Eos % (Auto) 0.9 (0-4.4) % Baso % (Auto) 0.4 (0.2-1.2) % Lymph # (Auto) 1.83 (0.9-3.2) K/mm3 [place] # (Auto) 1.0 H (0.1-0.6) K/mm3 Eos # (Auto) 0.1 (0-0.3) K/mm3 Baso # (Auto) 0.1 (0.0-0.1) K/mm3 Abs Immat Gran (auto) 0.03 (0.00-0.031) K/mm3 Absolute Neuts (auto) 9.2 H (1.3-6.7) K/mm3 Absolute Nucleated RBC 0.000 (0.0-0.012) K/mm3 Nucleated RBC % 0.0 (0.0-0.2) % Sodium 135 L (137-145) mmol/L Potassium 4.0 (3.4-5.0) mmol/L Chloride 101 (98-107) mmol/L Carbon Dioxide 23 (22-30) mmol/L Anion Gap 11 (4-12) mmol/L BUN 16 (9-20) mg/dL Creatinine 1.14 (0.7-1.3) mg/dL Estim Creat Clear Calc 49 ml/min Estimated GFR > 60 (59 - ) Glucose 122 H (65-110) mg/dL Calcium 9.1 (8.4-10.2) mg/dL Total Bilirubin 0.7 (0.2-1.3) mg/dL AST 19 (17-59) U/L ALT 19 (6-50) U/L Alkaline Phosphatase 73 (38-126) U/L Total Protein 8.0 (6.3-8.2) g/dL Albumin 4.4 (3.5-5.1) g/dL Urine Color Yellow (Yellow) Urine Appearance Clear (Clear) Urine pH 6.5 (5.0-9.0) Ur Specific [place] 1.019 (1.001-1.035) Urine Protein Negative (Negative) mg/dL Urine Glucose (UA) Negative (Negative) mg/dL Urine Ketones Negative (Negative) mg/dL Ur Blood (Man) Negative (Negative) Urine Nitrate Negative (Negative) Urine Bilirubin Negative (Negative) Urine Urobilinogen 0.2 (<2.0) mg/dL Leukocyte Esterase Rfl Negative (Negative) LEONEL/UL Discharge Plan Discharge Clinical Impression: Ureterolithiasis Patient Disposition: Home, Self-Care Condition: Stable Instructions: Antibiotic Form Patient Language: Uzbek Prescriptions: New ondansetron 4 mg tablet,disintegrating 4 mg PO Q8H PRN (Reason: nausea and vomiting) Qty: 10 0RF hydrocodone-acetaminophen 5-325 mg tablet 1 tablet PO Q6H PRN (Reason: pain) 3 Days Qty: 12 0RF No Action alfuzosin 10 mg tablet extended release 24 hr 10 mg PO DAILY Rx Instructions: administer after the same meal each day tamsulosin 0.4 mg capsule 0.4 mg PO DAILY Qty: 90 3RF cyanocobalamin (vitamin B-12) 500 mcg Tablet 500 mcg PO DAILY Slow Release Iron 144 mg (45 mg iron) Tablet Extended Release 45 mg PO DAILY oxybutynin chloride 5 mg tablet 5 mg PO DAILY Qty: 90 1RF primidone 250 mg tablet 250 mg PO QHS Qty: 30 5RF amiodarone 200 mg tablet See Rx Instructions .ROUTE .COMPLEX Qty: 45 2RF Dose Instruction: TAKE 1/2 TABLET BY MOUTH DAILY Rx Instructions: TAKE 1/2 TABLET BY MOUTH DAILY fludrocortisone 0.1 mg tablet 0.1 mg PO DAILY Qty: 90 2RF pravastatin 10 mg tablet 10 mg PO DAILY Qty: 30 5RF ropinirole 0.25 mg tablet See Rx Instructions .ROUTE .COMPLEX Qty: 135 0RF Dose Instruction: TAKE 1/2 TABLET BY MOUTH THREE TIMES DAILY Rx Instructions: TAKE 1/2 TABLET BY MOUTH THREE TIMES DAILY Eliquis 5 mg tablet See Rx Instructions .ROUTE .COMPLEX Qty: 60 5RF Dose Instruction: TAKE 1 TABLET BY MOUTH TWICE DAILY Rx Instructions: TAKE 1 TABLET BY MOUTH TWICE DAILY Follow-up/Referrals: Saw Ramirez MD [Physician] - Nile Gamez MD [Primary Care Provider] - Time of Disposition: 04:04
[2024-12-31] MEDS: HYDROcodone/acetaminophen (*CRX) 5-325 MG TABLET 1 TAB PO (04:14)
[2024-12-31 04:26] VITALS: BP 143/77; PULSE 58; RESP 18; O2SAT 97
== END 2024-12-31 04:28 | disposition home or self-care (01) ==
PROVIDERS: Emergency Provider Emergency Medicine; PCP Family Medicine Adolescent Medicine
DX: N13.2 Hydronephrosis with renal and ureteral calculous obstruction (principal); G20.A1 Parkinson's disease without dyskinesia, without mention of fluctuations; I48.0 Paroxysmal atrial fibrillation; I70.0 Atherosclerosis of aorta; N40.1 Benign prostatic hyperplasia with lower urinary tract symptoms; Z86.16 Personal history of COVID-19; Z87.01 Personal history of pneumonia (recurrent); Z87.442 Personal history of urinary calculi; Z98.42 Cataract extraction status, left eye; Z98.41 Cataract extraction status, right eye; Z90.49 Acquired absence of other specified parts of digestive tract; K44.9 Diaphragmatic hernia without obstruction or gangrene
CPT/HCPCS: 36415; 74176; 80053; 81003; 85025; 96374; 96375; 99284; A9270; J2270; J2405

== ENCOUNTER 2025-03-14 10:00 | Outpatient (CLI) | payer MEDICARE, SELFPAY ==
--- NOTE | ~2025-03-14 | XR_ITS ---
XR abdomen/kub 1V Ordering provider: Joey Oliver MD History: . Kidney stone on left side . Comparison: None. FINDINGS: BOWEL: Nonobstructive bowel gas pattern. ORGANOMEGALY: None. SIGNIFICANT PATHOLOGIC CALCIFICATIONS: Large calcific shadow is seen in the left paraspinal area katiana uring 3.6 cm which is mobile which may indicate grossly dilated left ureter. OTHER: No free air is seen under the diaphragm. Degenerative the spine. Bilateral sacroiliitis. IMPRESSION: NO ACUTE ABDOMINAL FINDINGS. Calcific shadow seen in the left paraspinal area which is mobile and also projected over the L5 verte bra view which may indicate stone with grossly dilated ureter. noncontrast CT abdomen is advised. Reviewed, dictated and finalized at location A. IMPRESSION: NO ACUTE ABDOMINAL FINDINGS. Calcific shadow seen in the left paraspinal area which is mobile and also proje cted over the L5 vertebra view which may indicate stone with grossly dilated ur eter. noncontrast CT abdomen is advised.
--- OUTSIDE RECORDS SUMMARY | 2025-03-14 10:17 | XMS_ITS | Referral Summary ---
Author [place] [facility] [place] [address] Address [address] [place] [address] Care Team Providers Care Linen Supply Load Builder Name Role Phone Nile Gamez MD Primary [...] of Treatment Not on file Insurance MEDICARE [facility] Care Teams Linen Supply Load Builder Relationship Specialty Start Date End Date Nile Gamez MD [address] [place] [address] PCP - General Family Medicine 06/24/17
--- OUTSIDE RECORDS SUMMARY | 2025-03-14 10:17 | XMS_ITS | Clinical Summary ---
Author Organization [facility] [place] [address] Address [address] [place] [address] Care Team Providers Care Knitting Inspector Name Role Phone Nile Gamez MD Primary [...] of Treatment Not on file Insurance MEDICARE [facility] Care Teams Knitting Inspector Relationship Specialty Start Date End Date Nile Gamez MD [address] [place] [address] PCP - General Family Medicine 06/24/17
== END 2025-03-14 10:01 | disposition home or self-care (01) ==
PROVIDERS: PCP Family Medicine Adolescent Medicine; Visit Provider Urology
DX: N20.0 Calculus of kidney (principal)
CPT/HCPCS: 74018